=== PATIENT | female | born 1955 | race Caucasian/White ===

== ENCOUNTER → 2020-06-07 10:57 | Outpatient (CLI) | payer OTHER, SELFPAY ==
--- NOTE | ~2020-06-07 | MM_ITS ---
EXAMINATION: MM screening [facility] BI w remy HISTORY: Screening mammogram TECHNIQUE: Craniocaudal and mediolateral oblique 3-D tomosynthesis images were obtained and synthetic 2-D images were generated. CAD analysis was submitted and interpreted. COMPARISON: 04/13/2019, 04/01/2018, 02/27/2017 BREAST PARENCHYMAL COMPOSITION: The breasts are almost entirely fatty. FINDINGS: There is unchanged focal asymmetry in the posterior third of the upper outer quadrant of th e left breast. There is no evidence of suspicious mass, calcification, or architectural distortion to suggest malignancy in either breast. There has been no suspicious interval change. IMPRESSION: 1. No mammographic evidence of malignancy. 2. Recommend routine screening mammography in one year. BI-RADS Category 2: Benign finding(s). Reviewed, dictated and finalized at location A.
== END ==
PROVIDERS: PCP Family Medicine; Visit Provider Nurse Practitioner Obstetrics & Gynecology
DX: Z12.31 Encounter for screening mammogram for malignant neoplasm of breast (principal)
CPT/HCPCS: 77063; 77067

== ENCOUNTER 2020-10-26 08:25 | Outpatient (CLI) | payer OTHER, SELFPAY ==
--- NOTE | 2020-10-26 08:37 | ECHO_ITS ---
Patient Info Name: Tania Downing Age: 65 years : 1955 Gender: Female Ht: 66 in Wt: 265 lbs BSA: 2.43 m2 HR: 50 bpm BP: 107 / 76 mmHg Heart Rhythm: Bradycardia Technical Quality: Fair Exam Date: 10/26/2020 9:15 AM Exam Location: [facility] Pulmonary Patient Status: Outpatient Admit Date: 10/26/2020 Staff Ordering Physician: Jesús Law DO Factory Assembler: Socrates Browning RDCS Attending Provider: Jesús Law DO Referring Physician: Thanh ARANGO; Exam Type: CA echo doppler color flow Study Info Indications R06.00 - Dyspnea, unspecified Complete two-dimensional, color flow and Doppler transthoracic echocardiogram is performed. History/Risk Factors Dyspnea. Summary 1. Complete two-dimensional, color flow and Doppler transthoracic echocardiogram is performed. 2. Left ventricular chamber dimension is normal. 3. Left ventricular systolic function is normal, estimated at 55-60%. 4. There is mildly increased left ventricular wall thickness. 5. The left ventricular diastolic function is abnormal. 6. E/e' 13 is mildly elevated. 7. Left atrial chamber dimension is mildly enlarged. 8. There is mild to moderate mitral valve regurgitation. 9. There is trace tricuspid valve regurgitation. 10. Mild pulmonary hypertension, estimated pulmonary arterial systolic pressure is 41 mmHg. 11. There is small circumferential pericardial effusion. Left Ventricle E/e' 13 is mildly elevated. Left ventricular chamber dimension is normal. Left ventricular systolic function is normal, estimated at 55-60%. There is mildly increased left ventricular wall thickness. The left ventricular diastolic function is abnormal. Right Ventricle Right ventricular chamber dimension is normal. Right ventricular systolic function is normal. Left Atria Left atrial chamber dimension is mildly enlarged. Right Atria Right atrial chamber dimension is normal. Aortic Valve The aortic valve is trileaflet. There is no aortic valve stenosis. There is no aortic valve regurgitation. Pulmonic Valve There is no pulmonic regurgitation. Mitral Valve There is no mitral valve stenosis. There is mild to moderate mitral valve regurgitation. Tricuspid Valve There is trace tricuspid valve regurgitation. Mild pulmonary hypertension, estimated pulmonary arterial systolic pressure is 41 mmHg. Pericardium/Pleural There is small circumferential pericardial effusion. Inferior Vena Cava Normal inferior vena cava with >50% collapse upon inspiration consistent with normal right atrial pressure, 5 mmHg. Aorta The aortic root size at the sinus of Valsalva is normal. Left Ventricular Outflow Tract Name Value Normal LVOT 2D LVOT Diameter 2.0 cm LVOT Doppler LVOT Peak Gradient 7 mmHg LVOT Mean Gradient 4 mmHg LVOT VTI 33 cm LVOT VTI/AV VTI Ratio 0.9 LVOT Stroke Volume 101 ml LVOT CO 4.7 l/min LVOT CI 1.9
== END 2020-10-26 08:26 | disposition home or self-care (01) ==
PROVIDERS: PCP Family Medicine; Visit Provider Internal Medicine Cardiovascular Disease
DX: R06.00 Dyspnea, unspecified (principal); I34.0 Nonrheumatic mitral (valve) insufficiency; I36.1 Nonrheumatic tricuspid (valve) insufficiency
CPT/HCPCS: 93306

== ENCOUNTER → 2021-05-02 15:36 | Outpatient (CLI) | payer OTHER, SELFPAY ==
--- NOTE | ~2021-05-02 | XR_ITS ---
EXAMINATION: XR knee RT min 4V DATE: 05/02/2021 16:15 INDICATION: Right knee pain. TECHNIQUE: 4 views of right knee were obtained. COMPARISON: None. FINDINGS: Bone alignment is normal. No fracture. There is mild osteoarthritis of medial and lateral c ompartments and moderate osteoarthritis of patellofemoral compartment. There is a small knee joint ef fusion. IMPRESSION: 1. Moderate right knee osteoarthritis. 2. Small right knee joint effusion. Reviewed, dictated and finalized at location A.
== END ==
PROVIDERS: PCP Family Medicine; Visit Provider Family Medicine
DX: M17.11 Unilateral primary osteoarthritis, right knee (principal); M25.461 Effusion, right knee
CPT/HCPCS: 73564

== ENCOUNTER → 2021-06-15 17:36 | Outpatient (CLI) | payer OTHER, SELFPAY ==
--- NOTE | ~2021-06-15 | DEXA_ITS ---
Bone Density Report Name: Tania Downing Age: 65 Sex: Female Ethnicity: White Date of : 1955 Indication: postmenopausal; screening for osteoporosis; Referring Provider: Adis, Edwige Alonzo Study: Bone densitometry was performed. Exam Date: June 15, 2021 Accession number: [id number] Bone Density: Region BMD T-score Z-score Classification AP Spine (L1, L2, L4) 1.264 2.1 3.8 Normal Femoral Neck (Left) 0.913 0.6 2.1 Normal Total Hip (Left) 0.974 0.3 1.5 Normal Femoral Neck (Right) 0.807 -0.4 1.1 Normal Total Hip (Right) 0.955 0.1 1.3 Normal Total Hip Mean 0.965 0.2 1.4 Normal World Health Organization criteria for BMD impression classify patients as: Normal (T-score at or above -1.0), Osteopenia (T-score between -1.0 and -2.5), or Osteoporosis (T-score at or below -2.5). 10-year Fracture Risk: FRAX not reported because: All T-scores for Spine Total, Hip Total, Femoral Neck at or above -1.0 Previous Exams: Region Exam Age BMD T-score BMD Change BMD Change Date g/cm2 vs Baseline vs Previous AP Spine(L1, L2, L4) 06/15/2021 65 1.264 2.1 -0.077* 0.083* 03/17/2019 63 1.181 1.3 -0.160* 0.020 12/23/2012 57 1.162 1.2 -0.180* 0.021 11/10/2009 54 1.140 1.0 -0.201 -0.201 10/19/2006 51 1.341 2.8 Total Hip(Left) 06/15/2021 65 0.974 0.3 -0.062* 0.034* 03/17/2019 63 0.939 0.0 -0.097* -0.040* 12/23/2012 57 0.979 0.3 -0.057* 0.067 11/10/2009 54 0.912 -0.2 -0.124 -0.124 10/19/2006 51 1.036 0.8 Total Hip(Right) 06/15/2021 65 0.955 0.1 -0.083* -0.025 03/17/2019 63 0.981 0.3 -0.058* -0.021 12/23/2012 57 1.001 0.5 -0.037* 0.084 11/10/2009 54 0.918 -0.2 -0.121 -0.121 10/19/2006 51 1.038 0.8 *Denotes significance at 95% confidence level, LSC for AP Spine = 0.022 g/cm2, LSC for Total Hip = 0.027 g/cm2 Clinical Information Provided by Patient: Has used the following medications: Calcium, MTV Patient maximum height was 66.5 Menopause Age: 51 No regular weight bearing exercise Drinks caffeinated beverages Onset of menses at age 13 Number of children 2 Impression: The patient has normal bone mass. No significant bone loss was observed. Discussion: BONE DENS
--- NOTE | ~2021-06-15 | MM_ITS ---
EXAMINATION: MM screening [facility] BI w remy HISTORY: Screening TECHNIQUE: Craniocaudal and mediolateral oblique 3-D tomosynthesis images were obtained and synthetic 2-D images were generated. CAD analysis was submitted and interpreted. COMPARISON: Comparison to multiple prior studies sequentially, with oldest reviewed study dated 02/03. BREAST PARENCHYMAL COMPOSITION: There are scattered areas of fibroglandular density. FINDINGS: Bilateral breast asymmetries are stable. There is no evidence of suspicious mass, calcifica tion, or architectural distortion to suggest malignancy in either breast. There has been no suspiciou s interval change. IMPRESSION: 1. No mammographic evidence of malignancy. 2. Recommend routine screening mammography in one year. BI-RADS Category 2: Benign finding(s). Reviewed, dictated and finalized at location A.
== END ==
PROVIDERS: PCP Family Medicine; Visit Provider Nurse Practitioner Obstetrics & Gynecology
DX: Z12.31 Encounter for screening mammogram for malignant neoplasm of breast (principal); M85.80 Other specified disorders of bone density and structure, unspecified site; Z78.0 Asymptomatic menopausal state
CPT/HCPCS: 77063; 77067; 77080

== ENCOUNTER → 2021-06-27 12:53 | Outpatient (CLI) | payer OTHER, SELFPAY ==
--- NOTE | ~2021-06-27 | MR_ITS ---
EXAMINATION: MR knee RT wo con DATE: 06/27/2021 13:34 INDICATION: Right knee pain TECHNIQUE: Magnetic resonance imaging (MRI) of the right knee was performed without intravenous contr ast. Sequences included coronal PD-weighted FSE, coronal PD-weighted FS FSE, sagittal T2-weighted FS E, sagittal PD-weighted FS FSE and axial PD weighted fat saturated FSE. COMPARISON: None. FINDINGS: Medial compartment: Longitudinal horizontal tear extending to the inferior articular surface at the junction of the mid t o peripheral third of the body and posterior horn of the medial meniscus. There is suggestion of an a dditional small radial tear at the body. Partial thickness cartilage loss and chondral surface regula rity but without degenerative subchondral changes at the anterior to central weightbearing medial fem oral condyle. Along the lateral side of the anterior weightbearing medial femoral condyle is appears to involve greater than 50% the cartilage thickness. Cartilage along the medial tibial plateau appear s relatively preserved. Small marginal osteophytes are present. Lateral compartment: Longitudinal oblique vertical appearing tear at the anterior horn of the lateral meniscus although th is is a region of decreased specificity with MRI imaging. Deep chondral ulceration involving a signif icant portion of the anterior to posterior weightbearing medial femoral condyle. There is marrow evelyn a surrounding a small region of low signal intensity subarticular eburnation at the central weightbea ring lateral femoral condyle. Partial-thickness cartilage ulceration involving greater than 50% the c artilage thickness with subtle chondral surface irregularity across the lateral tibial plateau with s imilar subarticular eburnation and surrounding marrow edema. Small marginal osteophytes are present. Patellofemoral compartment: Extensive full and near full-thickness chondral ulceration involving the lateral patellar facet and l ateral trochlea with cortical irregularity and subarticular cystic changes throughout the lateral tro chlea and at the inferior third of the lateral facet. Additional less severe partial thickness cartil age loss without degenerative subchondral changes at the medial patellar facet. Cartilage thickness i s more preserved at the medial trochlea where there is small amount partial-thickness chondral fissur ing and no degenerative subchondral changes. Ligaments and tendons: Partial tear of the posterolateral bundle of the anterior cruciate ligament. The anteromedial bundle appears likely intact. The posterior cruciate ligament is normal. The medial collateral ligament and fibular collateral ligament complex are normal. Small enthesophytes on the anterior patella and at th e anterior tibial tuberosity insertion of the otherwise normal patellar tendon. Distal quadriceps ten don is normal. The visualized medial and lateral hamstring tendons as well as the iliotibial band are normal. Fluid: Moderate-sized right knee joint effusion with mild synovitis at the suprapatellar pouch. No loose ost eochondral bodies identified. Small Krishnamurthy's cyst with mild synovitis. Moderate-sized Krishnamurthy's cyst wit h smaller more superficial component and moderate sized deeper component extending caudally along the anterior medial head of the gastrocnemius. Osseous/other: There is approximately 5 mm lateral subluxation of the patella. Alignment is otherwise normal. No fra cture or pathologic marrow replacing process. IMPRESSION: 1. Medial and lateral meniscal tears. Should be noted however that specificity for tears of the anter ior horn of the lateral meniscus are lower with MRI. 2. Tricompartmental osteoarthritis, severe with extensive high-grade chondromalacia at the lateral pa tellofemoral compartment, moderate severity with additional extensive high-grade chondromalacia in th e lateral compartment and mild w
== END ==
PROVIDERS: PCP Family Medicine; Visit Provider Nurse Practitioner Family
DX: M25.561 Pain in right knee (principal); S83.281A Other tear of lateral meniscus, current injury, right knee, initial encounter; S83.241A Other tear of medial meniscus, current injury, right knee, initial encounter; M17.11 Unilateral primary osteoarthritis, right knee; M94.261 Chondromalacia, right knee; S83.511A Sprain of anterior cruciate ligament of right knee, initial encounter
CPT/HCPCS: 73721

== ENCOUNTER 2021-08-03 08:07 | Outpatient (CLI) | payer MEDICARE, SELFPAY ==
--- NOTE | ~2021-08-03 | NM_ITS ---
EXAMINATION: NM vidhi stress w perfusion DATE: 08/03/2021 11:33 INDICATION: Chest pain, unspecified. TECHNIQUE: Rest images were obtained following intravenous administration of 10 mCi Tc99m tetrofosmin (Myoview). The patient was infused intravenously with Lexiscan (regadenoson). Then, 31.4 mCi Tc99m t etrofosmin (Myoview) was administered intravenously, and stress images were obtained. Data was recons tructed into short axis and horizontal and vertical long axis SPECT images. Gated SPECT images were a lso obtained. COMPARISON: None. FINDINGS: There is no definite reversible or fixed perfusion abnormality to suggest ischemia or infar ction. There is no segmental wall motion abnormality. Left ventricular ejection fraction measures > 70%. IMPRESSION: 1. No definite ischemia or infarct. 2. Normal left ventricular ejection fraction measuring >70%. Reviewed, dictated and finalized at location A.
--- NOTE | 2021-08-03 08:23 | EST_ITS ---
Patient Info Name: Tania Downing Age: 65 years : 1955 Gender: Female Ht: 66 in Wt: 265 lbs BSA: 2.43 m2 HR: 55 bpm BP: 134 / 71 mmHg Heart Rhythm: Sinus Rhythm Exam Date: 08/03/2021 9:16 AM Exam Location: [facility] Stress Patient Status: Outpatient Admit Date: 08/03/2021 Staff Ordering Physician: Jesús Law DO Attending Provider: Jesús Law DO Exercise Technologist: Cecilia Cox CT Exercise Physician: Jesús Law DO Exam Type: CA stress vidhi w NM Study Info A regadenoson stress test was performed. Summary 1. 1. Negative lexiscan stress test for ischemic ST changes by ECG criteria. 2. 2. Stable hemodynamics throughout the test. 3. 3. Nuclear scan to follow and will be reported separately. Please correlate with it. 4. 4. Patient informed of the above results. Protocol: Lexiscan Stress ECG Details Stage: REST Duration (min): 1 min : 31 sec HR (bpm): 54 SBP (mmHg): 134 DBP (mmHg): 71 Stage: REST Duration (min): 9 min : 42 sec HR (bpm): 58 SBP (mmHg): 134 DBP (mmHg): 71 Stage: STAGE 1 Duration (min): 1 min : 0 sec HR (bpm): 76 SBP (mmHg): 163 DBP (mmHg): 63 Stage: RECOVERY Duration (min): 1 min : 0 sec HR (bpm): 67 SBP (mmHg): 163 DBP (mmHg): 63 Stage: RECOVERY Duration (min): 2 min : 0 sec HR (bpm): 59 SBP (mmHg): 163 DBP (mmHg): 63 Stage: RECOVERY Duration (min): 3 min : 0 sec HR (bpm): 56 SBP (mmHg): 147 DBP (mmHg): 67 Stage: RECOVERY Duration (min): 3 min : 15 sec HR (bpm): 58 SBP (mmHg): 147 DBP (mmHg): 67 Rest HR: 58 bpm Peak HR: 76 bpm Rest Sys BP: 134 mmHg Peak Sys BP: 163 mmHg Max Pred HR: 156 bpm % Max Pred HR: 49 % Target HR: 133 bpm Max RPP: 12,388 bpm*mmHg Termination Reason: Completed protocol Cardiac Symptoms: Shortness of breath Total Time: 1 min : 0 sec Rest Egan BP: 71 mmHg Peak Egan BP: 63 mmHg Total Dose: 0.4 mg Resting ECG Sinus bradycardia, IRBBB. Stress ECG No ST changes. Arrhythmias None. Report Signatures
== END 2021-08-03 08:08 | disposition home or self-care (01) ==
PROVIDERS: PCP Family Medicine; Visit Provider Internal Medicine Cardiovascular Disease
DX: R07.89 Other chest pain (principal)
CPT/HCPCS: 78452; 93017; A9502; J2785

== ENCOUNTER 2022-03-10 09:34 | Outpatient (CLI) | payer MEDICARE, SELFPAY ==
--- NOTE | 2022-03-10 09:55 | ECHO_ITS ---
Patient Info Name: Tania Downing Age: 66 years : 1955 Gender: Female Ht: 66 in Wt: 260 lbs BSA: 2.40 m2 HR: 52 bpm BP: 161 / 93 mmHg Technical Quality: Good Exam Date: 03/10/2022 10:12 AM Exam Location: [facility] Pulmonary Patient Status: Outpatient Admit Date: 03/10/2022 Staff Ordering Physician: Jesús Law DO Solution Architect: Bishnu Rodriguez RDCS, RT Attending Provider: Jesús Law DO Referring Physician: Thanh ARANGO; Exam Type: CA echo doppler color flow Study Info Indications R06.00 - Dyspnea, unspecified Complete two-dimensional, color flow and Doppler transthoracic echocardiogram is performed. Strain analysis performed. Summary 1. Complete two-dimensional, color flow and Doppler transthoracic echocardiogram is performed. 2. Left ventricular chamber dimension is normal. 3. Left ventricular systolic function is normal, estimated at 60-65%. 4. There is mildly increased left ventricular wall thickness. 5. The left ventricular diastolic function is abnormal. 6. E/e' 10 is mildly elevated. 7. Global longitudinal strain is normal at -22.1%. 8. Left atrial chamber dimension is mildly enlarged. 9. There is mild mitral valve regurgitation. 10. There is mild tricuspid valve regurgitation. 11. Mild pulmonary hypertension, estimated pulmonary arterial systolic pressure is 47 mmHg. Left Ventricle E/e' 10 is mildly elevated. Global longitudinal strain is normal at -22.1%. Left ventricular chamber dimension is normal. Left ventricular systolic function is normal, estimated at 60-65%. There is mildly increased left ventricular wall thickness. The left ventricular diastolic function is abnormal. Right Ventricle Right ventricular systolic function is normal and with normal TAPSE 2.7 cm. Right ventricular chamber dimension is normal. Left Atria Left atrial chamber dimension is mildly enlarged. Right Atria Right atrial chamber dimension is normal. Aortic Valve The aortic valve is trileaflet. There is no aortic valve stenosis. There is no aortic valve regurgitation. Pulmonic Valve There is no pulmonic regurgitation. Mitral Valve There is no mitral valve stenosis. There is mild mitral valve regurgitation. Tricuspid Valve There is mild tricuspid valve regurgitation. Mild pulmonary hypertension, estimated pulmonary arterial systolic pressure is 47 mmHg. Pericardium/Pleural There is no pericardial effusion. Inferior Vena Cava Dilated inferior vena cava with >50% collapse upon inspiration consistent with normal right atrial pressure, 5 mmHg. Aorta The aortic root size at the sinus of Valsalva is normal. Left Ventricular Outflow Tract Name Value Normal LVOT 2D LVOT Diameter 2.0 cm LVOT Doppler LVOT Peak Gradient 5 mmHg LVOT Mean Gradient 3 mmHg LVOT VTI 32 cm LVOT VTI/AV VTI Ratio 0.9 LVOT Stroke Volume 100 ml LVOT CO 5.6 l/min LVOT CI 2.3 l/min/m2
== END 2022-03-10 09:35 | disposition home or self-care (01) ==
PROVIDERS: PCP Internal Medicine; Visit Provider Internal Medicine Cardiovascular Disease
DX: R06.00 Dyspnea, unspecified (principal); I08.3 Combined rheumatic disorders of mitral, aortic and tricuspid valves
CPT/HCPCS: 93306

== ENCOUNTER 2022-09-07 07:39 | Outpatient (CLI) | payer MEDICARE, SELFPAY ==
--- NOTE | 2022-10-02 15:28 | WPDSLEEPSTUD ---
Sleep Study Date of Study: 09/07/22 Ordering Provider: Jesús Law DO Interpreting Physician: Daisy Avery DO Sleep Study Type: Polysomnogram Height: 1.68 m Weight: 111.13 kg Body Mass Index: 39.5 Neck Circumference (inches): 15 Chappell: 6 Reason for Sleep Study Daytime hypersomnia Sleep History The patient is a 67-year-old female with hypertension, GERD, anxiety, arthritis and Lupus that had a sleep study ordered by her crisis worker for evaluation of sleep apnea. The patient denies awakening from sleep short of breath. She denies awakening at night with heartburn, belching or cough. She rarely snores and is never loud enough that others complain. She occasionally has trouble sleeping when she has a cold. She denies waking up gasping for air throughout the night. She denies having breathing problems at night observed by herself or others. She rarely sweats excessively at night. She denies having heart palpitations or irregular heartbeats during the night. She occasionally falls asleep during the day. Two will occasionally fall asleep while driving after several hours of driving at night. She denies having trouble at school or work due to sleepiness. She denies feeling unable to move when waking up or falling asleep. She occasionally experiences vivid dreamlike scenes upon awakening or falling asleep. She denies feeling afraid of going to sleep. She rarely has nightmares. She occasionally remembers her dreams. She occasionally has thoughts racing through her mind. She rarely feels sad or depressed. She occasionally has anxiety. She rarely has muscular tension. She rarely notices parts of her body jerk. She denies kicking during the night. She occasionally has crawling and aching feelings in her legs as well as leg pain during the night. She denies grinding her teeth during sleep and awakening with morning jaw pain. She is occasionally bothered by pain during the day and occasionally awakened by pain during the night. She occasionally wakes up feeling stiff in the morning. She rarely wakes up with sore achy muscles. She rarely wakes up with pain in the neck, spine or other joints. She goes to bed between 10-11 p.m. on both weekdays and weekends. He takes her 5-10 minutes to fall asleep. She wakes up 2-3 times throughout the night to urinate, stretch and get a drink of water. She is able to fall back asleep within 10-15 minutes. She wakes up between 7-8 a.m. on both weekdays and weekends. She typically gets 7-9 hours of sleep per night. She will stay in bed for less than 10 minutes after waking up in the morning. She currently lives with her . She does not consume any caffeinated beverages within 2 hours of bedtime. She does not engage in physical exercise before bedtime. She will occasionally read and watch television before falling asleep. She will take naps in the afternoon or the evening and they are refreshing. She drinks 2 cups of coffee and 1-2 sodas per day. He will drink 1-2 alcoholic beverages a few times per week. She denies tobacco use. She will use a CBD/THC tablet as needed PMFSH Past Medical History Medical History Anxiety Arthritis BMI greater than 40 Flexion contracture History of 2019 novel coronavirus disease (COVID-19) Knee effusion, right Left knee DJD Lupus Right knee DJD Right knee pain Wears glasses Family History Family History Other Family history of cardiovascular disease Hypertension Social History Social History Smoking status: Never smoker Alcohol intake: current Medications Home Medications Medication Instructions Recorded Confirmed Type buspirone 10 mg tablet 10 mg PO BID 09/30/20 08/17/22 History fluticasone propionate 50 1 spray intranasal DAILY 09/30/20
[2022-10-02 15:36] VITALS: BMI 39.5
== END 2022-09-08 06:21 | disposition home or self-care (01) ==
PROVIDERS: PCP Internal Medicine; Visit Provider Internal Medicine Cardiovascular Disease
DX: G47.30 Sleep apnea, unspecified (principal); G47.10 Hypersomnia, unspecified
CPT/HCPCS: 95810

== ENCOUNTER 2022-10-14 08:12 | Outpatient (CLI) | payer MEDICARE, SELFPAY ==
--- NOTE | ~2022-10-14 | MM_ITS ---
EXAMINATION: MM screening [facility] BI w remy HISTORY: Screening mammogram TECHNIQUE: Craniocaudal and mediolateral oblique 3-D tomosynthesis images were obtained and synthetic 2-D images were generated. CAD analysis was submitted and interpreted. COMPARISON: 6 06/15/2021, 06/07/2020, 04/03/2019 bilateral screening mammogram examinations BREAST PARENCHYMAL COMPOSITION: There are scattered areas of fibroglandular density. FINDINGS: There is no evidence of suspicious mass, calcification, or architectural distortion to sugg est malignancy in either breast. There has been no suspicious interval change. IMPRESSION: 1. No mammographic evidence of malignancy. 2. Recommend routine screening mammography in one year. BI-RADS Category 1: Negative Reviewed, dictated and finalized at location A. INE STAKER
== END 2022-10-14 08:13 | disposition home or self-care (01) ==
LOC: ANHIMG 08:16
PROVIDERS: PCP Internal Medicine; Visit Provider Internal Medicine
DX: Z12.31 Encounter for screening mammogram for malignant neoplasm of breast (principal)
CPT/HCPCS: 77063; 77067

== ENCOUNTER 2022-11-24 10:56 | Outpatient (CLI) | payer MEDICARE, SELFPAY ==
--- NOTE | 2022-11-24 12:16 | ECG_ITS ---
Measurements Intervals [place] Rate: 52 P: 10 NH: 165 QRS: -3 QRSD: 87 T: 6 QT: 443 QTc: 416 Interpretive Statements BASELINE ARTIFACT/REDUCED ECG QUALITY SINUS BRADYCARDIA WITH SINUS ARRHYTHMIA LOW QRS VOLTAGE IN PRECORDIAL LEADS [QRS DEFLECTION < 1.0 mV IN CHEST LEADS] NONSPECIFIC T-WAVE CHANGE NO PREVIOUS ECG AVAILABLE FOR COMPARISON Electronically Signed On 11-24-2022 15:03:28 VOCATIONAL PSYCHOLOGIST by Aguila James M.D.
[2022-11-24 12:47] LABS: Add Urine Microscopic? YES; Appearance Urine Clear (Clear); Basophils Absolute Auto 0.1 K/mm3 (0.0-0.1); Basophils Percent Auto 1.2 % (0.2-1.2); Bilirubin Urine Negative (Negative); Blood Urine Negative (Negative); Color Urine Yellow (Yellow); Eosinophils Absolute Auto 0.2 K/mm3 (0-0.3); Eosinophils Percent Auto 2.2 % (0-4.4); Glucose Urine UA Negative (Negative); Hemoglobin 13.6 g/dL (12.0-15.0); Immature Granulocyte Absolute 0.02 K/mm3 (0.00-0.031); Immature Granulocyte Percent A 0.3 % (0-0.5); Ketones Urine Trace mg/dL (Negative); Leukocyte Esterase Ur Trace LEU/UL (Negative); Lymphocytes Absolute Auto 1.38 K/mm3 (0.9-3.2); Mean Corpuscular Hemoglobin 31.5 pg (26-34); Mean Corpuscular Volume 92.6 fl (80-100); Mean Platelet Volume 9.8 fl (7.4-10.4); Monocytes Absolute Auto 0.5 K/mm3 (0.1-0.6); Monocytes Percent Auto 7.4 % (2.6-8.5); Neutrophils Absolute Auto 4.8 K/mm3 (1.3-6.7); Neutrophils Percent Auto 68.9 % (45.5-73.1); Nitrate Urine Negative (Negative); Platelet Count Result 221 k/mm3 (150-375); Protein Urine Negative (Negative); Red Blood Count 4.32 M/mm3 (4.2-5.4); Red Cell Distribution Width 12.8 % (11.5-14.5); Specific Grav Ur 1.015 (1.001-1.035); White Blood Count 6.9 K/mm3 (4.5-10.0)
[2022-11-24 12:52] LABS: Albumin Level 4.6 g/dL (3.5-5.1); Anion Gap 7 mmol/L (8-16); Blood Urea Nitrogen 14 mg/dL (7-17); Carbon Dioxide 29 mmol/L (22-30); Chloride 100 mmol/L (98-107); Estimated Glomerular Filt Rate 45; Glucose 93 mg/dL (65-110); Potassium 3.9 mmol/L (3.4-5.0); Sodium 136 mmol/L (137-145)
[2022-11-24 12:55] LABS: Prothrombin Time 13.1 Seconds (11.1-14.7); Urine Cotinine NEGATIVE
[2022-11-24 12:56] LABS: Partial Thromboplastin Time 28.3 SECONDS (22.3-36.8)
[2022-11-24 13:06] LABS: Bacteria Urine 4+ /hpf; Hyaline Casts Urine 15-19 /lpf; Mucus Urine Rare /lpf; RBC Urine 0-2 /hpf (0-2); Squamous Epithelial Cell Urine Rare /hpf (Few); Transitional Epi Cells Urine Rare /hpf (None Seen); WBC Urine 0-3 /hpf
[2022-11-24 13:19] LABS: Hemoglobin A1C 4.7 % (<5.7)
== END 2022-11-24 10:57 | disposition home or self-care (01) ==
PROVIDERS: PCP Internal Medicine; Visit Provider Orthopaedic Surgery
DX: M17.11 Unilateral primary osteoarthritis, right knee (principal); Z01.818 Encounter for other preprocedural examination
CPT/HCPCS: 80048; 80307; 81001; 82040; 83036; 85025; 85610; 85730; 86850; 86900; 86901; 87081; 93005

== ENCOUNTER 2022-12-06 01:12 | Day surgery (SDC) | payer MEDICARE, SELFPAY ==
--- NOTE | 2022-11-24 11:19 | PC.NURSE ---
Addendum entered by Luzma Irene RN 11/24/22 12:01: DR. ERICKSON NOT DR. JOHNSON Original Note: PRE-OP INSTRUCTIONS, PLEASE READ CAREFULLY Report to the Outpatient Waiting Room, entrance under the green pavilion located off [facility], at time _0830_ on date _12/06/22_. Planned Procedure Time: _1030_. PACK A SMALL OVERNIGHT BAG AND LEAVE IN THE CAR ALONG WITH YOUR WALKER Time changes happen often and if your time is changed the preop area will call you the afternoon before. - You and your visitor will be asked to self-screen and do not enter if you have any COVID symptoms. - Only one visitor is requested with a max of two and NO children visitors are allowed at this time. - The patient visitor may be requested to leave or wait in car when not with patient due to distancing restrictions. - A mask is REQUIRED within the hospital. -VISITING HOURS 8AM-8PM Patients may have clear liquids (water, carbonated beverages, clear teas, apple juice) until 3 hours prior to surgery (0730 AM) with a maximum of 20 ounces. - No food from midnight until time of surgery Take the following medications with a SIP of water the morning of surgery: _ BUPROPION, BUSPIRONE, TRAMADOL IF NEEDED_ Medications to discontinue per DR. JOHNSON - _MELOXICAM 7 DAYS PRIOR TO SURGERY, Date to take last dose 11/28/22_ Medications to discontinue per ANESTHESIA -_ALL VITAMINS/SUPPLEMENTS 3 DAYS PRIOR TO SURGERY, Date to take last dose 12/02/22 Please no make-up, nail czech, hairspray, perfume, deodorant, or body powder the day of surgery. No jewelry (including any body piercings) or valuables the day of surgery, leave them at home. Please take a shower or bath the night before, or the morning of, surgery with an antibacterial soap. Wear comfortable, loose fitting clothing. - Jewelry must be removed prior to entering the operating room. Rings and piercings that are not removed may be cut off. - The hospital will not accept responsibility for valuables. - Please leave all valuables, including medications, at home the day of surgery. If you are going home after surgery, a licensed double bottom driver must drive you home. - NO public transportation without another adult if you receive anesthesia. - We recommend that an adult stay with you for 24 hours following discharge. - We also recommend that you do not drive, make important decision, drink alcoholic beverages, or take any drugs that were not prescribed by your health care provider for at least 24 hours after your discharge time. Follow any additional instructions given to you from your surgeon. If you or anyone in your household have experienced Covid symptoms in the past week, please notify your surgeon or the nurse liaison at the phone number below for possible testing. Instructions given to _PATIENT_and asked if any additional questions and then verbalized understanding. Patient advised to call surgeon office or pre surgery nurse liaison [phone] if any additional questions.
[2022-11-24 11:47] VITALS: BP 150/66; PULSE 52; RESP 18; TEMP 37.2; O2SAT 100; BMI 38.9
--- NOTE | 2022-12-05 09:18 | WPDANESEPPF ---
Anes - Initial Pre Proc Eval Procedure: Operation Date: 12/06/22 10:30 Proposed Procedures p Right Total Knee Arthroplasty with Left Knee Cortisone Injection - Ananth Blue MD Date/Time: 12/05/22 09:18 Surgeon: Ananth Blue MD Pre Op Diagnosis: Rt Knee DJD, Lt Knee DJD Patient Data Age: 67 Gender: F Height: 1.66 m Weight: 107.7 kg Last Vital Signs Temp 37.2 C 11/24/22 11:47 Pulse 52 L 11/24/22 11:47 Resp 18 11/24/22 11:47 BP 150/66 H 11/24/22 11:47 Pulse Ox 100 11/24/22 11:47 O2 Del Method Room Air 11/24/22 11:47 Allergies Allergy/AdvReac Type Severity Reaction Status Date / Time morphine AdvReac Hallucinati Verified 11/24/22 11:33 ng Home Medications Medication Instructions Recorded Confirmed Type buspirone 10 mg tablet 10 mg PO BID 09/30/20 12/06/22 History fluticasone propionate 50 1 spray intranasal DAILY PRN 09/30/20 12/06/22 History mcg/actuation nasal Congestion spray,suspension hydroxychloroquine 200 mg tablet 200 mg PO .Every other day 09/30/20 12/06/22 History losartan 100 1 tablet PO DAILY 09/30/20 12/06/22 History mg-hydrochlorothiazide 25 mg tablet metoprolol succinate 100 mg 100 mg PO DAILY 09/30/20 12/06/22 History tablet,extended release 24 hr montelukast 10 mg tablet 10 mg PO HS 09/30/20 12/06/22 History omeprazole 40 mg capsule,delayed 40 mg PO .every other day 11/05/20 12/06/22 History release acidophilus 100 million See Rx Instructions PO .COMPLEX 02/03/21 12/06/22 History cell-pectin, citrus 10 mg capsule cetirizine 10 mg disintegrating 10 mg PO DAILY 02/03/21 12/06/22 History tablet glucosamine sulf dipotassium Cl 1 tablet PO DAILY 02/03/21 12/06/22 History 750 mg-chondroitin sulf 600 mg tablet (Glucosamine-Chondroitin 3X Triple Strength) calcium carbonate-vitamin D3 1 tab-cap PO DAILY 05/23/21 12/06/22 History [Calcium 600 + D(3)] multivitamin 1 tablet PO DAILY 05/23/21 12/06/22 History azelastine 137 mcg (0.1 %) nasal 2 spray intranasal .PRN PRN 02/13/22 12/06/22 History spray aerosol Congestion amlodipine 10 mg tablet 5 mg PO DAILY 02/15/22 12/06/22 History bupropion HCl 150 mg 24 hr tablet, 150 mg PO QAM 02/15/22 12/06/22 History extended release tramadol 50 mg tablet 50 mg PO Q8H PRN pain #20 tabs 08/28/22 12/06/22 Rx Avexia 10 mg HS 11/24/22 12/06/22 History meloxicam 15 mg tablet See Rx Instructions .Route 11/24/22 12/06/22 History .COMPLEX PRN Pain chlorhexidine gluconate 4 % 1 applic topical ONCE #237 mL 11/28/22 Rx topical liquid (Hibiclens) sulfamethoxazole 800 1 tablet PO Q12H UTI 10 days #20 11/28/22 Rx mg-trimethoprim 160 mg tablet tabs (Bactrim DS) Patient hx anesthesia problems: post op nausea/vomiting Family hx anesthesia problems: none Results Review: All pre-operative results and documents have been reviewed as part of the pre-operative evaluation. [facility] Past Medical History Medical History (Updated 12/05/22 @ 09:19 by Armando Ambrose, ) Anxiety Arthritis BMI greater than 40 Flexion contracture GERD (gastroesophageal reflux disease) History of 2019 novel coronavirus disease (COVID-19) Hypertension Knee effusion, right Left knee DJD Lupus PONV (postoperative nausea and vomiting) Right knee DJD Right knee pain Wears glasses Family History Family History Other Family history of cardiovascular disease Hypertension Social History Social History Smoking status: Never smoker Second hand tobacco smoke exposure: No Additional smoking assessment comments: PT DENIES ALL FORMS OF TOBACCO USE Alcohol intake: current Drinks per week: 4 Substance use: current Substance use type: marijuana Other substance usage details: 2.5MG NIGHTLY FOR SLEEP Living arrangements: with family Spiritual care concerns: No
[2022-12-06] VITALS (15 sets, daily range): BP systolic 123–147; BP diastolic 53–99; PULSE 52–65; RESP 12–20; TEMP 36.3–37.1; O2SAT 95–100
--- NOTE | ~2022-12-06 | XR_ITS ---
EXAM: XR knee RT 2V DATE: 12/06/2022 13:37 HISTORY: RT TOTAL KNEE . COMPARISON: 05/23/2021. FINDINGS: Interval total knee arthroplasty, hardware components in good position. No hardware fractu re or abnormal perihilar hardware lucency. Subcutaneous and joint space gas and fluid. Midline skin s taples. No unexpected radiopaque foreign body. IMPRESSION: Expected postsurgical changes, with no radiographic evidence of procedure or hardware rel ated complication. Reviewed, dictated and finalized at location K. CE AGENT IMPRESSION: Expected postsurgical changes, with no radiographic evidence of pro cedure or hardware related complication.
--- NOTE | 2022-12-06 07:10 | WPDHPUPDATE1 ---
History and Physical Update Update Date/Time: 12/06/22 07:10 History and Physical has been reviewed, including an updated exam of the patient. There are NO changes in the patient's condition. Risks, benefits, and alternatives have been discussed and questions answered. Patient agrees to proceed with procedure.
[2022-12-06] MEDS: ACETAMINOPHEN 500 MG TABLET 1000 MG PO (09:15)
[2022-12-06] MEDS: LACTATED RINGERS 1,000 ML 30 ML IV CONT ×2 (09:22→13:25)
--- NOTE | 2022-12-06 10:01 | WPDANESPNB ---
Anes - Peripheral Nerve Block Date/Time: 12/06/22 10:01 I have discussed with the patient/family/POA the placement of a peripheral nerve block for post-operative pain management, including associated risks, benefits, complications, and side effects. Alternative methods of post-operative analgesia were detailed. Questions were solicited and answers provided to the satisfaction of the patient/family/POA. Time-Out: A pre-procedural Time-Out was completed immediately before starting the procedure and confirmed: Patient Identification, Site, Procedure, Patient Position and the Availability of Requisite Equipment. Clinical Indications: Acute post-operative pain management requested by the operative surgeon. Nerve Block Insertion Note Anes-nerve block: adductor canal Patient position: supine Skin prep: chlorhexidine Needle: 22 gauge, stimulating, insulated echogenic needle. Needle length: 80 mm Technique: ultrasound Injectate: bupivacaine 0.5% with epi 5 mcg/ml (30cc - no epi) Observations: tolerated well Complications: none Procedure start time:: 1030 Procedure end time:: 1032
[2022-12-06] MEDS: TRANEXAMIC ACID 1,000MG/ISO100 1,000 MG/100 ML BAG 200 MG IVPB (10:13)
[2022-12-06] MEDS: SCOPOLAMINE 1.5 MG PATCH TRANSDERM (10:22)
[2022-12-06] MEDS: ceFAZolin 2 GM/D5W 50 ML 2 GM/50 ML BAG IVPB ×2 (10:41→17:57)
[2022-12-06] MEDS: GENTAMICIN BONE CEMENT REFOBACIN 1 EACH TOPICAL (11:46)
[2022-12-06] MEDS: TRANEXAMIC ACID 1,000 MG/10 ML AMPUL 1000 MG IV PUSH (12:18)
--- NOTE | 2022-12-06 13:36 | W.PM.PROC2 ---
Procedure Note - Detailed Date of Procedure 12/06/22 Pre-op Diagnosis Rt Knee DJD, Lt Knee DJD Post-op Diagnosis Same Procedure Performed R TKA Surgeon Ananth Blue MD Anesthesia General Description of Procedure THE RIGHT KNEE WAS PREPPED AND DRAPED IN THE STERILE FASHION. THERE WAS A SEVERE VALGUS DEFORMITY TO THE KNEE. A MIDLINE SKIN INCISION WAS MADE. A MEDIAL PARAPATELLAR ARTHROTOMY WAS MADE. THE PATELLA WAS EVERTED. THERE WAS TRICOMPARTMENT DJD. AN INTRAMEDULLARY [place] WAS PLACED IN THE FEMUR. A DISTAL FEMORAL CUT WAS MADE IN 5 DEGREES OF VALGUS REMOVING APPROXIMATELY 9 MM OF BONE FROM THEN HIGH SIDE OF THE DISTAL FEMUR. THE FEMUR WAS SIZED TO 60. A 60 FEMORAL CUTTING BLOCK WAS PLACED IN ALIGNMENT WITH NEREIDA'S LINE AND THE TRANSEPICONDYLAR AXIS. ANTERIOR POSTERIOR AND CHAMFER CUTS WERE MADE. THE CUTS WERE EXCELLENT. NEXT AN INTRAMEDULLARY CUTTING GUIDE WAS PLACED IN THE TIBIA. A TRANS TIBIAL CUT WAS MADE ALONG THE LONG AXIS OF THE TIBIA. APPROXIMATELY 10 MM OF BONE WAS REMOVED FROM THE HIGH SIDE OF THE TIBIA. THE TIBIA WAS THEN PLANED TO A SMOOTH SURFACE. POSTERIOR FEMORAL OSTEOPHYTES WERE REMOVED FROM THE FEMORAL CONDYLES. A 67 TIBIAL TRIAL WAS PLACED IN ALIGNMENT WITH THE 1/3 MEDIAL ASPECT OF THE TIBIAL TUBERCLE. THEN A 60 FEMORAL TRIAL COMPONENT WAS PLACED. BOTH HAD EXCELLENT FITS. POLY TRIALS WERE PLACED IN INCREMENTS OF 2 MM. EVENTUALLY A 20 MM POLYETHYLENE TRIAL COMPONENT WAS PLACED. LIGAMENT BALANCING WAS PREFORMED UNTIL THE KNEE WAS STABLE IN VARUS/VALGUS STRESS. THE KNEE WAS TAKEN THROUGH A RANGE OF MOTION. THE KNEE CAME OUT TO FULL EXTENSION. THERE WAS NO ABNORMAL TILT TO THE PATELLA. THERE WAS GOOD A/P AND VARUS/VALGUS STABILITY. THERE WAS NO EXCESSIVE ROLL BACK WITH FLEXION. THE TRIAL COMPONENTS WERE REMOVED. THEN A 60 FEMORAL COMPONENT AND 67 TIBIAL COMPONENT WITH A 20 POLYETHYLENE COMPONENT WERE CEMENTED INTO PLACE. ONCE THE CEMENT WAS HARD THE KNEE WAS TAKEN THROUGH A ROM AGAIN AND FOUND TO BE STABLE WITH NO PATELLA TILT NO EXCESSIVE ROLL BACK WITH FLEXION AND GOOD STABILITY WITH COMPLETE AND FULL EXTENSION. THE KNEE WAS IRRIGATED WITH STERILE BETADINE AND WATER FOR ABOUT 3 MINUTES. THE BLEEDERS WERE CAUTERIZED. THE ARTHROTOMY WAS REPAIRED WITH NUMBER 1 VICRYL. THE SUB CUTANEOUS LAYER WITH 2-0 VICRYL AND THE SKIN WITH RAHAT. THE WOUND WAS WASHED AND A STERILE DRESSING WAS APPLIED. PATIENT WAS EXTUBATED. Estimated Blood Loss -100.0 Pathology None sent Complications No immediate complications Condition Stable Disposition PACU
[2022-12-06] MEDS: fentaNYL CITRATE INJ (*CRX) 100 MCG/2 ML VIAL 25 MCG IV PUSH ×4 (14:06→14:32)
--- NOTE | 2022-12-06 15:10 | ADMGEN ---
This patient, Tania Downing, was admitted to room 16 Patient/family oriented to hospital policies and general routines including ID bracelet, bed and alarms, visiting hours, pain management, procedures, bathroom and other care routines, personal items, smoking policy, room service/diet, and visiting hours. Information on how to activate the Rapid Response Team has been discussed. Patient/Family are encouraged to report perceived risks to care and to ask questions if they do not understand what they are told or what they should do.
[2022-12-06] MEDS: oxyCODONE/ACETAMINOPHEN (*CRX) 5-325 MG TABLET 1 TABLET PO ×2 (15:42→21:40)
[2022-12-06] MEDS: SENNA/DOCUSATE SODIUM TABLET 2 TAB PO (17:57)
[2022-12-06] MEDS: busPIRone HCL 10 MG TABLET PO (17:57)
[2022-12-06] MEDS: KETOROLAC 15 MG/ML VIAL (*BKC) IV PUSH (18:00)
[2022-12-06 18:59] LABS: Estimated CRCL calculation 43 ml/min; Estimated Glomerular Filt Rate 38
[2022-12-06] MEDS: MONTELUKAST SODIUM 10 MG TABLET PO (21:38)
[2022-12-06] MEDS: ASPIRIN 325 MG ENTERIC TABLET PO (21:38)
[2022-12-07] MEDS: oxyCODONE/ACETAMINOPHEN (*CRX) 5-325 MG TABLET 1 TABLET PO ×3 (02:10→10:30)
[2022-12-07] MEDS: ceFAZolin 2 GM/D5W 50 ML 2 GM/50 ML BAG IVPB ×2 (02:10→09:55)
[2022-12-07 03:45] VITALS: BP 142/52; PULSE 56; RESP 18; TEMP 36.9; O2SAT 96
[2022-12-07 05:28] LABS: Basophils Percent Auto 0.1 % (0.2-1.2); Hematocrit 34.1 % (37.0-47.0); Hemoglobin 11.7 g/dL (12.0-15.0); Immature Granulocyte Absolute 0.11 K/mm3 (0.00-0.031); Immature Granulocyte Percent A 0.7 % (0-0.5); Lymphocytes Absolute Auto 0.65 K/mm3 (0.9-3.2); Lymphocytes Percent Auto 4.3 % (18.3-44.2); Mean Corpuscular HGB Conc 34.3 g/dl (32-36); Mean Corpuscular Hemoglobin 31.5 pg (26-34); Mean Corpuscular Volume 91.9 fl (80-100); Mean Platelet Volume 9.6 fl (7.4-10.4); Monocytes Absolute Auto 0.8 K/mm3 (0.1-0.6); Monocytes Percent Auto 5.5 % (2.6-8.5); Neutrophils Absolute Auto 13.6 K/mm3 (1.3-6.7); Neutrophils Percent Auto 89.4 % (45.5-73.1); Platelet Count Result 205 k/mm3 (150-375); Red Blood Count 3.71 M/mm3 (4.2-5.4); Red Cell Distribution Width 12.3 % (11.5-14.5); White Blood Count 15.2 K/mm3 (4.5-10.0)
[2022-12-07] MEDS: KETOROLAC 15 MG/ML VIAL (*BKC) IV PUSH ×2 (05:43)
[2022-12-07 05:44] LABS: Anion Gap 5 mmol/L (8-16); Blood Urea Nitrogen 23 mg/dL (7-17); Carbon Dioxide 23 mmol/L (22-30); Chloride 101 mmol/L (98-107); Estimated CRCL calculation 38 ml/min; Estimated Glomerular Filt Rate 32; Glucose 130 mg/dL (65-110); Potassium 4.8 mmol/L (3.4-5.0); Sodium 129 mmol/L (137-145)
[2022-12-07] MEDS: polyethylene glycoL 3350 17 GM POWD.PACK PO (08:30)
[2022-12-07 08:34] VITALS: PULSE 60
[2022-12-07] MEDS: METOPROLOL SUCCINATE EXT REL 100 MG TABCR PO (08:34)
[2022-12-07] MEDS: SENNA/DOCUSATE SODIUM TABLET 2 TAB PO (08:34)
[2022-12-07] MEDS: hydroCHLOROthiazide 25 MG TABLET PO (08:34)
[2022-12-07] MEDS: buPROPion HCL XL (24 HR) 150 MG TABCR PO (08:34)
[2022-12-07] MEDS: LOSARTAN POTASSIUM 100 MG TABLET PO (08:34)
[2022-12-07] MEDS: PANTOPRAZOLE 40 MG TABLET PO (08:34)
[2022-12-07] MEDS: ASPIRIN 325 MG ENTERIC TABLET PO (08:34)
[2022-12-07] MEDS: LORATADINE 10 MG TABLET PO (08:34)
[2022-12-07] MEDS: busPIRone HCL 10 MG TABLET PO (08:35)
[2022-12-07] MEDS: MULTIVITAMINS THERAPEUTIC TAB (*BKC) 1 TABLET PO (08:35)
[2022-12-07] MEDS: amLODIPine BESYLATE 5 MG TABLET PO (08:35)
--- NOTE | 2022-12-07 09:15 | PM.PNORT ---
Progress Note: A&P Assessment and Plan (1) S/P total knee arthroplasty: Code(s): Z96.659 - Presence of unspecified artificial knee joint Status: Acute Assessment and Plan: POD #1 : Left TKA Continue PT/OT. WBAT. Walker. HIGH FALL RISK. Continue pain control. Ice Knee. Protect skin. DVT prophylaxis with Aspirin. SCDs. Incentive Spirometry Use reviewed. Monitor Dressing. Change prior to discharge. Bowel Regimen. Dispo: Home with Home Health pending progress with PT/OT likely today Subjective Subjective Date/Time Seen: 12/07/22 09:15 Post Op day: 1 Principal diagnosis: POD #1: Left TKA Interval history: POD #1: Left TKA Patient doing well. No complaints of pain. Working well with PT/OT. Hopeful for discharge home today. Review of Systems Review of Systems: All systems reviewed & are unremarkable except as noted in HPI and below Constitutional: Constitutional: Denies fever(s) and Denies headache(s) ENT: Denies headache(s) Cardiovascular: Cardiovascular: Denies chest pain, Denies diaphoresis, Denies palpitations and Denies dyspnea Respiratory: Respiratory: Denies dyspnea Gastrointestinal: Gastrointestinal: Denies abdominal pain, Denies constipation, Denies nausea and Denies vomiting Genitourinary: Genitourinary: Reports nocturia and Denies dysuria Musculoskeletal: Musculoskeletal: Reports arthralgias (Left Knee ), Reports joint swelling (Left Knee ) and Reports limited range of motion (ROM limited due to recent surgical intervention LEFT Knee ) Neurologic: Denies headache(s) Endocrine: Endocrine: Denies palpitations Exam Const: General: comfortable and no acute distress Resp: Effort & Inspection: normal respiratory effort Cardio: Rate: regular rate Rhythm: regular rhythm GI: GI Palp: Yes Soft to palpation, No Tenderness to palpation present (GI) and No Guarding due to palpation present (GI) Skin: General skin exam: wounds noted (see extremity assessment ) Wounds: wounds noted (see extremity assessment ) Neuro: Cognition (Neuro): normal cognition Other: NV intact aside from block. Moves toes. Sensation intact to light touch. +ankle dorsiflexion/plantarflexion. Extrem: Left lower extremity: normal to inspection, normal capillary refill, knee Details: tenderness (diffuse ) Location: of the patella, swelling (moderate consistent to recent surgery ), abnormal ROM (limited due to recent surgery ) Details: pain with active ROM and pain with passive ROM and ecchymosis (as expected with recent surgery. NO hematoma. ), lower leg (Negative Bhupendar's Sign ), ankle (+ankle dorsiflexion/plantarflexion ) Details: normal to inspection, no edema and normal ROM; no tenderness and no swelling and foot Details: normal capillary refill, toes with normal ROM, vascular exam Details: dorsalis pedis pulse present and motor-sensory exam light-touch normal; no tenderness Other: Incision left TKA dressing c/d/i. No hematoma. No signs of infection. No wound dehiscence. Psych: Mental Status: mental status grossly normal Objective Data Vital Signs Vital Signs: Vital Signs - 24 hr 12/06/22 09:33 12/06/22 13:25 12/06/22 13:40 Temperature 36.3 C L 37.1 C Pulse Rate 52 L 55 L 55 L Respiratory Rate 16 14 16 Blood Pressure 144/56 H 134/68 128/62 Pulse Oximetry 99 100 100 Oxygen Delivery Room Air Simple Face Mask Simple Face Mask Oxygen Flow Rate 8 8 12/06/22 13:55 12/06/22 14:10 12/06/22 14:25 Temperature Pulse Rate 54 L 59 L 52 L Respiratory Rate 16 16 12 Blood Pressure 128/62 134/99 H 136/66 Pulse Oximetry 100 95 98 Oxygen Delivery Simple Face Mask Room Air Nasal Cannula Oxygen Flow Rate 8 2 12/06/22 14:35 12/06/22 14:45 12/06/22 15:15 Temperature Pulse Rate 57 L 57 L 61 Respiratory Rate 12 20 18 Blood Pressure 137/69 142/59 H 126/83 Pulse Oximetry 96 100 100 Oxygen Delivery Nasal Cannula Oxygen Flow Rate 2 12/06/22 15:00 12/06/22 15:30 12/06/22 16:00 Tempera
--- NOTE | 2022-12-07 09:15 | PM.DS ---
DS: Admitting Diagnosis Discharge Date 12/07/22 Admitting Diagnosis Left TKA DS: Discharge Diagnosis Discharge Diagnosis (1) S/P total knee arthroplasty: Code(s): Z96.659 - Presence of unspecified artificial knee joint Status: Acute Assessment and Plan: POD #1 : Left TKA Continue PT/OT. WBAT. Walker. HIGH FALL RISK. Continue pain control. Ice Knee. Protect skin. DVT prophylaxis with Aspirin. SCDs. Incentive Spirometry Use reviewed. Monitor Dressing. Change prior to discharge. Bowel Regimen. Dispo: Home with Home Health pending progress with PT/OT likely today DS: Summary Hospital Course Reason for hospitalization: Left TKA Hospital Course: 67 year old female admitted s/p left TKA for postoperative medical management, pain control and mobilization with PT/OT. Patient progressed well with PT/OT. Pain and vitals stable throughout. They have been cleared to be discharged home with home health at this time. Follow up planned for 3 weeks in the outpatient orthopedic clinic with Dr. Blue. Status at Discharge Functional status at discharge: uses cane/walker Overall status at discharge: patient is progressing back to baseline Time Spent with Patient Time attestation: Total time spent providing and/or coordinating discharge services: Exam Const: General: comfortable and no acute distress Resp: Effort & Inspection: normal respiratory effort Cardio: Rate: regular rate Rhythm: regular rhythm Skin: General skin exam: wounds noted (see extremity assessment ) Wounds: wounds noted (see extremity assessment ) Neuro: Cognition (Neuro): normal cognition Other: NV intact aside from block. Moves toes. Sensation intact to light touch. +ankle dorsiflexion/plantarflexion. Extrem: Left lower extremity: normal to inspection, normal capillary refill, knee Details: tenderness (diffuse ) Location: of the patella, swelling (moderate consistent to recent surgery ), abnormal ROM (limited due to recent surgery ) Details: pain with active ROM and pain with passive ROM and ecchymosis (as expected with recent surgery. NO hematoma. ), lower leg (Negative Bhupendra's Sign ), ankle (+ankle dorsiflexion/plantarflexion ) Details: normal to inspection, no edema and normal ROM; no tenderness and no swelling and foot Details: normal capillary refill, toes with normal ROM, vascular exam Details: dorsalis pedis pulse present and motor-sensory exam light-touch normal; no tenderness Other: Incision left TKA dressing c/d/i. No hematoma. No signs of infection. No wound dehiscence. Psych: Mental Status: mental status grossly normal DS: Data Data Completed and Pending Labs on day of discharge: Labs from last 24 hours 12/07/22 12/07/22 12/06/22 05:16 05:16 17:05 WBC 15.2 H RBC 3.71 L Hgb 11.7 L Hct 34.1 L MCV 91.9 MCH 31.5 MCHC 34.3 RDW 12.3 Plt Count 205 MPV 9.6 Immature Gran % (Auto) 0.7 H Neut % (Auto) 89.4 H Lymph % (Auto) 4.3 L [place] % (Auto) 5.5 Eos % (Auto) 0.0 Baso % (Auto) 0.1 L Lymph # (Auto) 0.65 L [place] # (Auto) 0.8 H Eos # (Auto) 0.0 Baso # (Auto) 0.0 Abs Immat Gran (auto) 0.11 H Absolute Neuts (auto) 13.6 H Absolute Nucleated RBC 0.0 Nucleated RBC % 0.0 Sodium 129 L Potassium 4.8 Chloride 101 Carbon Dioxide 23 Anion Gap 5 L BUN 23 H Creatinine 1.60 H 1.40 H Estim Creat Clear Calc 38 43 Estimated GFR 32 L 38 L Glucose 130 H Calcium 8.0 L Discharge Plan Discharge Patient Disposition: Home Health Service Discharge Instructions: Remove the Scopolamine patch that was placed behind your left ear in 72 hours or less. Wash your hands after touching. Post Op Total Knee Replacement Instructions Dr. Ananth Blue [phone] Your dressing will be changed prior to your discharge. You will be sent home with one additional dressing to be changed on post op day 7 by the home health RN. Your
== END 2022-12-07 11:53 | disposition home health service (06) ==
LOC: ANHSURGERY 10:22 → ANHSUROVER 14:42
PROVIDERS: PCP Internal Medicine; Visit Provider Orthopaedic Surgery
PROC: (CPT 27447; principal; 2022-12-06 10:30)
DX: M17.11 Unilateral primary osteoarthritis, right knee (principal); G89.18 Other acute postprocedural pain; I10 Essential (primary) hypertension; K21.9 Gastro-esophageal reflux disease without esophagitis; F41.9 Anxiety disorder, unspecified; E66.9 Obesity, unspecified; Z68.38 Body mass index [BMI] 38.0-38.9, adult; F12.90 Cannabis use, unspecified, uncomplicated
CPT/HCPCS: 27447; 64447; 36415; 73560; 80048; 82565; 85025; 97110; 97161; 97165; 97535; A9270; C1713; C1776; J0171; J0690; J1040; J1100; J1170; J1885; J2250; J2270; J2405; J2704; J2795; J3010; J3370; J7120

== ENCOUNTER 2023-03-27 09:51 | Outpatient (CLI) | payer MEDICARE, SELFPAY ==
[2023-03-27 11:18] LABS: Basophils Absolute Auto 0.1 K/mm3 (0.0-0.1); Eosinophils Absolute Auto 0.1 K/mm3 (0-0.3); Hematocrit 40.8 % (37.0-47.0); Hemoglobin 13.9 g/dL (12.0-15.0); Immature Granulocyte Absolute 0.03 K/mm3 (0.00-0.031); Immature Granulocyte Percent A 0.4 % (0-0.5); Mean Corpuscular HGB Conc 34.1 g/dl (32-36); Mean Corpuscular Hemoglobin 30.9 pg (26-34); Mean Corpuscular Volume 90.7 fl (80-100); Mean Platelet Volume 9.5 fl (7.4-10.4); Monocytes Absolute Auto 0.5 K/mm3 (0.1-0.6); Monocytes Percent Auto 7.2 % (2.6-8.5); Neutrophils Absolute Auto 4.8 K/mm3 (1.3-6.7); Neutrophils Percent Auto 70.4 % (45.5-73.1); Platelet Count Result 246 k/mm3 (150-375); Red Cell Distribution Width 12.9 % (11.5-14.5); White Blood Count 6.8 K/mm3 (4.5-10.0)
[2023-03-27 11:25] LABS: Appearance Urine Clear (Clear); Bacteria Urine None Seen /hpf; Bilirubin Urine Negative (Negative); Blood Urine Negative (Negative); Color Urine Yellow (Yellow); Glucose Urine UA Negative (Negative); Ketones Urine Negative (Negative); Leukocyte Esterase Ur Trace LEU/UL (Negative); Nitrate Urine Negative (Negative); Non Pathogenic Casts 0-2; Protein Urine Negative (Negative); RBC Urine 0-2 /hpf (0-2); Specific Grav Ur 1.013 (1.001-1.035); Squamous Epithelial Cell Urine None seen /hpf (Few); WBC Urine 0-5 /hpf
[2023-03-27 11:26] LABS: Albumin Level 4.6 g/dL (3.5-5.1); Anion Gap 5 mmol/L (8-16); Blood Urea Nitrogen 14 mg/dL (7-17); Calcium 9.5 mg/dL (8.4-10.2); Carbon Dioxide 34 mmol/L (22-30); Chloride 101 mmol/L (98-107); Estimated Glomerular Filt Rate 50; Glucose 93 mg/dL (65-110); Potassium 3.9 mmol/L (3.4-5.0); Sodium 140 mmol/L (137-145)
[2023-03-27 11:27] LABS: Add Urine Microscopic? YES; Prothrombin Time 13.7 Seconds (11.1-14.7)
[2023-03-27 11:28] LABS: Partial Thromboplastin Time 28.2 SECONDS (22.3-36.8); Urine Cotinine NEGATIVE
[2023-03-27 11:29] LABS: Hemoglobin A1C 4.6 % (<5.7)
== END 2023-03-27 09:52 | disposition home or self-care (01) ==
LOC: ANHSURGERY 09:58
PROVIDERS: PCP Internal Medicine; Visit Provider Orthopaedic Surgery
DX: M17.12 Unilateral primary osteoarthritis, left knee (principal); Z01.818 Encounter for other preprocedural examination
CPT/HCPCS: 80048; 80307; 81001; 82040; 83036; 85025; 85610; 85730; 87081

== ENCOUNTER 2023-04-10 01:03 | Day surgery (SDC) | payer MEDICARE, SELFPAY ==
[2023-03-27 10:23] VITALS: BP 161/70; PULSE 48; RESP 16; TEMP 37; O2SAT 100; BMI 38.1
--- NOTE | 2023-03-27 10:36 | PC.NURSE ---
Report to the Outpatient Waiting Room, entrance under the green pavilion located off [facility], at time _6:00AM on date _04/10/23 . Planned Procedure Time: __7:30AM . Time changes happen often and if your time is changed the preop area will call you the afternoon before. - You and your visitor will be asked to self-screen and do not enter if you have any COVID symptoms. - A mask is optional within the hospital at this time. Patients may have clear liquids (water, carbonated beverages, clear teas, apple juice) until 3 hours prior to surgery with a maximum of 20 ounces. - No food from midnight until time of surgery Take the following medications with a SIP of water the morning of surgery: ___BUPROPION, BUSPIRONE, AZELASTINE NASAL SPRAY & FLONASE NASAL SPRAY NEEDED, TRAMADOL NEEDED DO NOT STOP ANY OF YOUR OTHER PRESCRIPTION MEDICATIONS PRIOR TO SURGERY ?EXCEPT THE FOLLOWING Medications to discontinue per physician ___HOLD ALL VITAMINS/SUPPLEMENTS 3 DAYS PRE-OP PER ANESTHESIA- LAST DOSE 04/06/23. HOLD NSAIDS(MELOXICAN & IBUPROFEN) PER DR ERICKSON- PATIENT CALLING TO CONFIRM Please no make-up, nail latvian, hairspray, perfume, deodorant, or body powder the day of surgery. No jewelry (including any body piercings) or valuables the day of surgery, leave them at home. Please take a shower or bath the night before, or the morning of, surgery with an antibacterial soap. Wear comfortable, loose fitting clothing. Children are encouraged to wear pajamas. - Jewelry must be removed prior to entering the operating room. Rings and piercings that are not removed may be cut off. - The hospital will not accept responsibility for valuables. - Please leave all valuables, including medications, at home the day of surgery. If you are going home after surgery, a licensed ambulance driver paramedic must drive you home. - NO public transportation without another adult if you receive anesthesia. - We recommend that an adult stay with you for 24 hours following discharge. - We also recommend that you do not drive, make important decision, drink alcoholic beverages, or take any drugs that were not prescribed by your health care provider for at least 24 hours after your discharge time. Follow any additional instructions given to you from your surgeon. If you or anyone in your household have experienced Covid symptoms in the past week, please notify your surgeon or the nurse liaison at the phone number below for possible testing. Telephone instructions given to __PATIENT and asked if any additional questions and then verbalized understanding. Patient advised to call surgeon office or pre surgery nurse liaison [phone] if any additional questions.
--- NOTE | 2023-04-09 10:37 | WPDANESEPPF ---
Anes - Initial Pre Proc Eval Procedure: Operation Date: 04/10/23 07:30 Proposed Procedures p Left Total Knee Arthroplasty - Ananth Blue MD Date/Time: 04/09/23 10:37 Surgeon: Ananth Blue MD Pre Op Diagnosis: Left Knee osteoarthritis Patient Data Age: 67 Gender: F Height: 1.67 m Weight: 106.3 kg Last Vital Signs Temp 37.0 C 03/27/23 10:23 Pulse 48 L 03/27/23 10:23 Resp 16 03/27/23 10:23 BP 161/70 H 03/27/23 10:23 Pulse Ox 100 03/27/23 10:23 O2 Del Method Room Air 03/27/23 10:23 Allergies Allergy/AdvReac Type Severity Reaction Status Date / Time morphine AdvReac Hallucinati Verified 04/10/23 06:19 ng oxycodone AdvReac Nausea Verified 04/10/23 06:19 Home Medications Medication Instructions Recorded Confirmed Type buspirone 10 mg tablet 10 mg PO BID 09/30/20 04/10/23 History fluticasone propionate 50 1 spray intranasal DAILY PRN 09/30/20 03/27/23 History mcg/actuation nasal Congestion spray,suspension hydroxychloroquine 200 mg tablet 200 mg PO .Every other day 09/30/20 04/10/23 History losartan 100 1 tablet PO QAM 09/30/20 04/10/23 History mg-hydrochlorothiazide 25 mg tablet metoprolol succinate 100 mg 100 mg PO HS 09/30/20 04/10/23 History tablet,extended release 24 hr montelukast 10 mg tablet 10 mg PO HS 09/30/20 04/10/23 History omeprazole 40 mg capsule,delayed 40 mg PO .every other day 11/05/20 04/10/23 History release acidophilus 100 million 1 cap PO DAILY 02/03/21 04/10/23 History cell-pectin, citrus 10 mg capsule cetirizine 10 mg disintegrating 10 mg PO DAILY 02/03/21 04/10/23 History tablet glucosamine sulf dipotassium Cl 1 tablet PO DAILY 02/03/21 04/10/23 History 750 mg-chondroitin sulf 600 mg tablet (Glucosamine-Chondroitin 3X Triple Strength) multivitamin 1 tablet PO DAILY 05/23/21 04/10/23 History azelastine 137 mcg (0.1 %) nasal 2 spray intranasal .PRN PRN 02/13/22 04/10/23 History spray aerosol Congestion amlodipine 10 mg tablet 5 mg PO HS 02/15/22 04/10/23 History bupropion HCl 150 mg 24 hr tablet, 150 mg PO QAM 02/15/22 04/10/23 History extended release tramadol 50 mg tablet 50 mg PO Q8H PRN pain #20 tabs 08/28/22 04/10/23 Rx ondansetron 4 mg disintegrating 4 mg PO Q6H PRN nausea and 12/12/22 03/27/23 Rx tablet vomiting #14 tabs acetaminophen 500 mg capsule 1,000 mg PO Q6H PRN Pain 03/27/23 04/10/23 History calcium carbonate 600 mg-vitamin 1 tablet PO BID 03/27/23 04/10/23 History D3 5 mcg (200 unit) tablet ibuprofen 200 mg capsule 400 mg PO Q6H PRN Pain 03/27/23 03/27/23 History meloxicam 15 mg tablet 15 mg PO QAM 03/27/23 04/10/23 History chlorhexidine gluconate 4 % 1 applic topical ONCE #237 mL 04/03/23 Rx topical liquid (Hibiclens) Patient hx anesthesia problems: post op nausea/vomiting Family hx anesthesia problems: none Results Review: All pre-operative results and documents have been reviewed as part of the pre-operative evaluation. [facility] Past Medical History Medical History ) Anxiety Arthritis BMI greater than 40 Flexion contracture GERD (gastroesophageal reflux disease) History of 2019 novel coronavirus disease (COVID-19) Hypertension Knee effusion, right Left knee DJD Lupus PONV (postoperative nausea and vomiting) Right knee DJD Right knee pain Wears glasses Surgical History Surgical History ) S/P total knee arthroplasty Rt TKA 12/06/2022 Family History Family History ) Other Family history of cardiovascular disease Hypertension Social History Social History ) Smoking status: Never smoker Second hand tobacco smoke exposure: No Additional smoking assessment comments: PT DENIES ALL FORMS OF TOBACCO USE Alcohol intake: current
[2023-04-10] VITALS (13 sets, daily range): BP systolic 138–164; BP diastolic 53–75; PULSE 47–72; RESP 14–20; TEMP 36.2–36.9; O2SAT 92–100
--- NOTE | ~2023-04-10 | XR_ITS ---
EXAMINATION: [id number] DATE: 04/10/2023 10:33 CDT INDICATION: Left total knee arthroplasty TECHNIQUE: 2 views left knee FINDINGS: There is a left total knee arthroplasty in expected position. Subcutaneous gas with fluid and air in the joint and overlying skin genaro are consistent with recent surgery. No evidence of pe riprosthetic fracture. IMPRESSION: 1. Recent left total knee arthroplasty. Reviewed, dictated and finalized at location L.
[2023-04-10] MEDS: ACETAMINOPHEN 500 MG TABLET 1000 MG PO ×2 (06:40→11:50)
[2023-04-10] MEDS: LACTATED RINGERS 1,000 ML 30 ML IV CONT ×2 (06:50→10:03)
[2023-04-10] MEDS: TRANEXAMIC ACID 1,000MG/ISO100 1,000 MG/100 ML BAG 200 MG IVPB (06:59)
--- NOTE | 2023-04-10 07:07 | WPDANESPNB ---
Anes - Peripheral Nerve Block Date/Time: 04/10/23 07:07 I have discussed with the patient/family/POA the placement of a peripheral nerve block for post-operative pain management, including associated risks, benefits, complications, and side effects. Alternative methods of post-operative analgesia were detailed. Questions were solicited and answers provided to the satisfaction of the patient/family/POA. Time-Out: A pre-procedural Time-Out was completed immediately before starting the procedure and confirmed: Patient Identification, Site, Procedure, Patient Position and the Availability of Requisite Equipment. Clinical Indications: Acute post-operative pain management requested by the operative surgeon. Nerve Block Insertion Note Anes-nerve block: adductor canal left Patient position: supine Skin prep: chlorhexidine Needle: 22 gauge, stimulating, insulated echogenic needle. Needle length: 80 mm Technique: ultrasound Injectate: bupivacaine 0.5% with epi 5 mcg/ml (30cc - no epi) Observations: tolerated well Complications: none Procedure start time:: 730 Procedure end time:: 734
[2023-04-10] MEDS: SCOPOLAMINE 1.5 MG PATCH TRANSDERM (07:12)
--- NOTE | 2023-04-10 07:17 | WPDHPUPDATE1 ---
History and Physical Update Update Date/Time: 04/10/23 07:17 History and Physical has been reviewed, including an updated exam of the patient. There are NO changes in the patient's condition. Risks, benefits, and alternatives have been discussed and questions answered. Patient agrees to proceed with procedure. PLAN IS FOR LEFT KNEE REPLACEMENT
[2023-04-10] MEDS: ceFAZolin 2 GM/D5W 50 ML 2 GM/50 ML BAG IVPB ×3 (07:38→23:39)
[2023-04-10] MEDS: GENTAMICIN BONE CEMENT REFOBACIN 1 EACH TOPICAL (08:40)
[2023-04-10] MEDS: TRANEXAMIC ACID 1,000 MG/10 ML AMPUL 1000 MG IV PUSH (09:23)
--- NOTE | 2023-04-10 09:55 | W.PM.PROC2 ---
Procedure Note - Detailed Date of Procedure 04/10/23 Pre-op Diagnosis Left Knee osteoarthritis Post-op Diagnosis Same Procedure Performed L TKA Surgeon Ananth Blue MD Anesthesia General Description of Procedure THE LEFT KNEE WAS PREPPED AND DRAPED IN THE STERILE FASHION. A MIDLINE SKIN INCISION WAS MADE. A MEDIAL PARAPATELLAR ARTHROTOMY WAS MADE. THE PATELLA WAS EVERTED. THERE WAS TRICOMPARTMENT DJD. THERE WAS MINIMAL PATELLA DJD. AN INTRAMEDULLARY [place] WAS PLACED IN THE FEMUR. A DISTAL FEMORAL CUT WAS MADE IN 5 DEGREES OF VALGUS REMOVING APPROXIMATELY 9 MM OF BONE FROM THE DISTAL FEMUR. THE FEMUR WAS SIZED TO 60. A 60 FEMORAL CUTTING BLOCK WAS PLACED IN 3 DEGREES OF EXTERNAL ROTATION AND IN ALIGNMENT WITH NEREIDA'S LINE AND THE TRANSEPICONDYLAR AXIS. ANTERIOR POSTERIOR AND CHAMFER CUTS WERE MADE. THE CUTS WERE EXCELLENT. NEXT AN INTRAMEDULLARY CUTTING GUIDE WAS PLACED IN THE TIBIA. A TRANS TIBIAL CUT WAS MADE ALONG THE LONG AXIS OF THE TIBIA. APPROXIMATELY 10 MM OF BONE WAS REMOVED FROM THE HIGH SIDE OF THE TIBIA. THE TIBIA WAS THEN PLANED TO A SMOOTH SURFACE. POSTERIOR FEMORAL OSTEOPHYTES WERE REMOVED FROM THE FEMORAL CONDYLES. A 67 TIBIAL TRIAL WAS PLACED IN ALIGNMENT WITH THE 1/3 MEDIAL ASPECT OF THE TIBIAL TUBERCLE. THEN A 60 FEMORAL TRIAL COMPONENT WAS PLACED. BOTH HAD EXCELLENT FITS. EVENTUALLY A 10 MM POLYETHYLENE TRIAL COMPONENT WAS PLACED. THE KNEE WAS TAKEN THROUGH A RANGE OF MOTION. THE KNEE CAME OUT TO FULL EXTENSION. THERE WAS NO ABNORMAL TILT TO THE PATELLA. THERE WAS GOOD A/P AND VARUS/VALGUS STABILITY. THERE WAS NO EXCESSIVE ROLL BACK WITH FLEXION. THE TRIAL COMPONENTS WERE REMOVED. THEN A 60 FEMORAL COMPONENT AND 67 TIBIAL COMPONENT WITH A 10 POLYETHYLENE COMPONENT WERE CEMENTED INTO PLACE. ONCE THE CEMENT WAS HARD THE KNEE WAS TAKEN THROUGH A ROM AGAIN AND FOUND TO BE STABLE WITH NO PATELLA TILT NO EXCESSIVE ROLL BACK WITH FLEXION AND GOOD STABILITY WITH COMPLETE AND FULL EXTENSION. THE KNEE WAS IRRIGATED WITH STERILE BETADINE AND WATER FOR ABOUT 3 MINUTES. THE BLEEDERS WERE CAUTERIZED. THE ARTHROTOMY WAS REPAIRED WITH NUMBER 1 VICRYL. THE SUB CUTANEOUS LAYER WITH 2-0 VICRYL AND THE SKIN WITH RAHAT. THE WOUND WAS WASHED AND A STERILE DRESSING WAS APPLIED. PATIENT WAS EXTUBATED. Estimated Blood Loss -150.0 Pathology None sent Complications No immediate complications Condition Stable Disposition PACU
[2023-04-10] MEDS: fentaNYL CITRATE INJ (*CRX) 100 MCG/2 ML VIAL 25 MCG IV PUSH ×4 (10:49→11:21)
[2023-04-10] MEDS: SODIUM CHLORIDE 0.9% IV 1,000 ML 125 ML IV CONT (11:34)
--- NOTE | 2023-04-10 11:46 | ADMGEN ---
This patient, Tania Downing, was admitted to [facility] Surg Room 332-01. Patient/family oriented to hospital policies and general routines including ID bracelet, bed and alarms, visiting hours, pain management, procedures, bathroom and other care routines, personal items, smoking policy, room service/diet, and visiting hours. Information on how to activate the Rapid Response Team has been discussed. Patient/Family are encouraged to report perceived risks to care and to ask questions if they do not understand what they are told or what they should do.
[2023-04-10] MEDS: ONDANSETRON INJ 4 MG/2 ML VIAL IV PUSH (12:07)
[2023-04-10] MEDS: LOSARTAN POTASSIUM 100 MG TABLET PO (12:26)
[2023-04-10] MEDS: LORATADINE 10 MG TABLET PO (12:26)
[2023-04-10] MEDS: PANTOPRAZOLE 40 MG TABLET PO (12:26)
[2023-04-10] MEDS: hydroCHLOROthiazide 25 MG TABLET PO (12:26)
[2023-04-10] MEDS: KETOROLAC 15 MG/ML VIAL (*BKC) IV PUSH ×3 (12:26→23:43)
[2023-04-10] MEDS: SENNA/DOCUSATE SODIUM TABLET 2 TAB PO (17:08)
[2023-04-10] MEDS: busPIRone HCL 10 MG TABLET PO (17:08)
[2023-04-10] MEDS: amLODIPine BESYLATE 5 MG TABLET PO (21:35)
[2023-04-10] MEDS: ASPIRIN 325 MG ENTERIC TABLET PO (21:35)
[2023-04-10] MEDS: METOPROLOL SUCCINATE EXT REL 100 MG TABCR PO (21:35)
[2023-04-11 01:07] VITALS: BP 138/53; PULSE 53; RESP 18; TEMP 36.1; O2SAT 95
[2023-04-11 05:07] VITALS: BP 135/47; PULSE 54; RESP 16; TEMP 36.2; O2SAT 99
[2023-04-11] MEDS: KETOROLAC 15 MG/ML VIAL (*BKC) IV PUSH ×2 (06:04→12:43)
[2023-04-11] MEDS: ceFAZolin 2 GM/D5W 50 ML 2 GM/50 ML BAG IVPB (06:05)
[2023-04-11 06:11] LABS: Basophils Percent Auto 0.3 % (0.2-1.2); Hematocrit 32.1 % (37.0-47.0); Hemoglobin 10.7 g/dL (12.0-15.0); Immature Granulocyte Absolute 0.04 K/mm3 (0.00-0.031); Immature Granulocyte Percent A 0.3 % (0-0.5); Lymphocytes Absolute Auto 0.85 K/mm3 (0.9-3.2); Mean Corpuscular HGB Conc 33.3 g/dl (32-36); Mean Corpuscular Hemoglobin 30.6 pg (26-34); Mean Corpuscular Volume 91.7 fl (80-100); Mean Platelet Volume 10.2 fl (7.4-10.4); Neutrophils Absolute Auto 10.3 K/mm3 (1.3-6.7); Neutrophils Percent Auto 84.4 % (45.5-73.1); Platelet Count Result 196 k/mm3 (150-375); Red Cell Distribution Width 12.9 % (11.5-14.5); White Blood Count 12.2 K/mm3 (4.5-10.0)
[2023-04-11 06:21] LABS: Anion Gap 5 mmol/L (8-16); Blood Urea Nitrogen 18 mg/dL (7-17); Calcium 8.1 mg/dL (8.4-10.2); Carbon Dioxide 30 mmol/L (22-30); Chloride 101 mmol/L (98-107); Estimated CRCL calculation 59 ml/min; Estimated Glomerular Filt Rate 55; Glucose 117 mg/dL (65-110); Potassium 3.5 mmol/L (3.4-5.0); Sodium 136 mmol/L (137-145)
[2023-04-11 08:00] VITALS: BP 141/75; PULSE 51; RESP 16; TEMP 35.8; O2SAT 98
[2023-04-11 09:01] VITALS: O2SAT 95
[2023-04-11] MEDS: buPROPion HCL XL (24 HR) 150 MG TABCR PO (09:45)
[2023-04-11] MEDS: polyethylene glycoL 3350 17 GM POWD.PACK PO (09:45)
[2023-04-11] MEDS: ASPIRIN 325 MG ENTERIC TABLET PO (09:45)
[2023-04-11] MEDS: PANTOPRAZOLE 40 MG TABLET PO (09:45)
[2023-04-11] MEDS: SENNA/DOCUSATE SODIUM TABLET 2 TAB PO (09:45)
[2023-04-11] MEDS: busPIRone HCL 10 MG TABLET PO (09:45)
[2023-04-11] MEDS: LOSARTAN POTASSIUM 100 MG TABLET PO (09:45)
[2023-04-11] MEDS: hydroCHLOROthiazide 25 MG TABLET PO (09:46)
[2023-04-11] MEDS: LORATADINE 10 MG TABLET PO (09:46)
--- NOTE | 2023-04-11 10:33 | PM.PNORT ---
Progress Note: A&P Assessment and Plan (1) S/P total knee arthroplasty: Code(s): Z96.659 - Presence of unspecified artificial knee joint Status: Acute Assessment and Plan: POD 1 DOING WELL. PAIN IS CONTROLLED, GOOD PROGRESS WITH PT. OK TO DC HOME F/U IN 3 WEEKS Subjective Subjective Date/Time Seen: 04/11/23 10:33 Interval history: POD 1 DOING WELL. NO CALF PAIN. GOOD PROGRESS WITH PT Exam Extrem: Other: VSS AFEBRILE DRESSING DRY NV INTACT NEG HOMANS SIGN CALF NON TENDER Objective Data Vital Signs Vital Signs: Vital Signs - 24 hr 04/10/23 10:40 04/10/23 10:58 04/10/23 11:15 Temperature Pulse Rate 60 63 56 L Respiratory Rate 15 18 18 Blood Pressure 144/65 H 139/63 147/75 H Pulse Oximetry 92 98 92 Oxygen Delivery Room Air Room Air Room Air 04/10/23 12:11 04/10/23 12:53 04/10/23 11:22 Temperature 36.4 C Pulse Rate 55 L Respiratory Rate 19 Blood Pressure 146/65 H Pulse Oximetry 93 Oxygen Delivery Room Air Room Air 04/10/23 11:37 04/10/23 12:07 04/10/23 13:07 Temperature 36.2 C L 36.3 C L 36.3 C L Pulse Rate 56 L 50 L 51 L Respiratory Rate 20 20 20 Blood Pressure 162/72 H 152/69 H 164/73 H Pulse Oximetry 93 95 100 Oxygen Delivery 04/10/23 17:07 04/10/23 21:07 04/10/23 21:35 Temperature 36.3 C L 36.3 C L Pulse Rate 55 L 62 62 Respiratory Rate 19 16 Blood Pressure 162/70 H 142/53 H Pulse Oximetry 93 98 Oxygen Delivery 04/11/23 01:07 04/11/23 05:07 04/11/23 09:01 Temperature 36.1 C L 36.2 C L Pulse Rate 53 L 54 L Respiratory Rate 18 16 Blood Pressure 138/53 L 135/47 L Pulse Oximetry 95 99 95 Oxygen Delivery Room Air 04/11/23 08:00 Temperature 35.8 C L Pulse Rate 51 L Respiratory Rate 16 Blood Pressure 141/75 H Pulse Oximetry 98 Oxygen Delivery Intake/Output Intake/Output: Intake & Output 04/08/23 04/09/23 04/10/2317/23 23:59 23:59 23:59 23:59 Intake Total 2120 1170 Balance 2120 1170 Meds/Results Medications: Active Medications Generic Name Dose Route Start Last Admin Trade Name Freq PRN Reason Stop Dose Admin Acetaminophen 1,000 mg 04/10/23 11:22 04/10/23 11:50 Acetaminophen 500 Mg Tablet PO 1,000 mg Q6H PRN Administration Mild Pain (1-3) Amlodipine Besylate 5 mg 04/10/23 21:00 04/10/23 21:35 Amlodipine Besylate 5 Mg Tablet PO 5 mg HS AMBERLY Administration Aspirin 325 mg 04/10/23 21:00 04/11/23 09:45 Aspirin 325 Mg Enteric Tablet PO 325 mg Q12HR AMBERLY Administration Bupropion HCl 150 mg 04/11/23 09:00 04/11/23 09:45 Bupropion Hcl Xl (24 Hr) 150 Mg Tabcr PO 150 mg QAM AMBERLY Administration Buspirone HCl 10 mg 04/10/23 17:00 04/11/23 09:45 Buspirone Hcl 10 Mg Tablet PO 10 mg BID AMBERLY Administration Diazepam 5 mg 04/10/23 11:22 Diazepam (*Crx) 5 Mg Tablet PO Q8H PRN Spasms Diphenhydramine HCl 25 mg 04/10/23 11:22 Diphenhydramine Hcl Inj 50 Mg/Ml Vial IV PUSH Q6H PRN Itching Hydrochlorothiazide 25 mg 04/10/23 11:40 04/11/23 09:46 Hydrochlorothiazide 25 Mg Tablet PO 05/11/23 11:39 25 mg QAM AMBERLY Administration Ibuprofen 400 mg 04/10/23 11:22 Ibuprofen 400 Mg Tablet PO Q6H PRN Mild Pain (1-3) Ketorolac Tromethamine 15 mg 04/10/23 12:00 04/11/23 06:04 Ketorolac 15 Mg/Ml Vial (*Bkc) IV PUSH 04/11/23 12:01 15 mg Q6HR AMBERLY Administration Loratadine 10 mg 04/10/23 11:40 04/11/23 09:46 Loratadine 10 Mg Tablet PO 05/11/23 11:39 10 mg DAILY AMBERLY Administration Losartan Potassium 100 mg 04/10/23 11:45 04/11/23 09:45 Losartan Potassium 100 Mg Tablet PO 05/11/23 11:44 100 mg QAM AMBERLY Administration Metoprolol Succinate 100 mg 04/10/23 21:00 04/10/23 21:35 Metoprolol Succinate Ext Rel 100 Mg Tabcr PO 100 mg HS AMBERLY Administration Miscellaneous Information 0 each 04/10/23 00:01 Tylenol And Ibuprofen Both Entered Prn Mild Pain - Please Clarify
--- NOTE | 2023-04-11 10:35 | PM.DS ---
DS: Admitting Diagnosis Discharge Date 04/11/23 Admitting Diagnosis LEFT KNEE DJD DS: Discharge Diagnosis Discharge Diagnosis (1) S/P total knee arthroplasty: Code(s): Z96.659 - Presence of unspecified artificial knee joint Status: Acute DS: Summary Hospital Course Reason for hospitalization: LEFT TKA Hospital Course: PATIENT WAS ADMITTED S/P TOTAL KNEE ARTHROPLASTY FOR POSTOPERATIVE MEDICAL MANAGEMENT, PAIN CONTROL AND MOBILIZATION WITH PHYSICAL AND OCCUPATIONAL THERAPY. THE PATIENT PROGRESSED WELL WITH PT/OT. LABS AND VITALS REMAINED STABLE AND PAIN WELL CONTROLLED. THE PATIENT HAS BEEN CLEARED TO BE DISCHARGED HOME. FOLLOW UP APPOINTMENT SCHEDULED. DISCHARGE INSTRUCTIONS DISCUSSED AT LENGTH WITH THE PATIENT. MEDICATIONS REVIEWED. Status at Discharge Cognitive/behavioral status at discharge: STABLE Functional status at discharge: uses cane/walker Time Spent with Patient Time attestation: Total time spent providing and/or coordinating discharge services: DS: Data Data Completed and Pending Labs on day of discharge: Labs from last 24 hours 04/11/23 05:34 WBC 12.2 H RBC 3.50 L Hgb 10.7 L D Hct 32.1 L MCV 91.7 MCH 30.6 MCHC 33.3 RDW 12.9 Plt Count 196 MPV 10.2 Immature Gran % (Auto) 0.3 Neut % (Auto) 84.4 H Lymph % (Auto) 7.0 L Lynn % (Auto) 8.0 Eos % (Auto) 0.0 Baso % (Auto) 0.3 Lymph # (Auto) 0.85 L Lynn # (Auto) 1.0 H Eos # (Auto) 0.0 Baso # (Auto) 0.0 Abs Immat Gran (auto) 0.04 H Absolute Neuts (auto) 10.3 H Absolute Nucleated RBC 0.0 Nucleated RBC % 0.0 Sodium 136 L Potassium 3.5 Chloride 101 Carbon Dioxide 30 Anion Gap 5 L BUN 18 H Creatinine 1.00 Estim Creat Clear Calc 59 Estimated GFR 55 L Glucose 117 H Calcium 8.1 L Discharge Plan Discharge Patient Disposition: Home Health Service Discharge Instructions: Remove the Scopolamine patch that was placed behind your left ear in 72 hours or less. Wash your hands after touching. Post Op Total Knee Replacement Instructions Dr. Ananth Blue [phone] Your dressing will be changed prior to your discharge. You will be sent home with one additional dressing to be changed on post op day 7 by the home health RN. Your genaro will be removed on the 14th day after surgery and steri-strips will be placed. Please practice good hand hygiene and do not touch your incision in order to prevent infection. You may shower with your dressing but do not submerge in a bath tub. Do not drive or operate machinery until you are released by Dr. Blue. Do not walk without a walker for any reason until you are released by Dr. Blue. Continue to use your ice machine. Please use a towel or pillow case to protect your skin before applying your ice machine. Do NOT place a pillow under your knee. You may use a pillow from the calf down if needed. This will prevent a flexion contracture postoperatively. You may begin use of your CPM machine at home if you have been given one pre-operatively. DO NOT USE WHILE YOU ARE SLEEPING. Your first post op appointment was sent to you via mail preoperatively. If you have any questions or are unable to make your appointment, please contact our office for scheduling questions. Your medications have been sent to your pharmacy. You have been sent home with pain medication. Please pickling drum operator an over the counter stool softener to prevent constipation due to narcotic use. Please keep this in mind during your postoperative recovery. If you are not experiencing regular bowel movements, please contact our office for further instruction. Please contact our office with any questions/concerns regarding your knee at [phone]. Patient Instructions: Antibiotic Form Stand Alone Forms: General Discharge Information Follow-up/Referrals: Ananth Blue MD [Physician] - Keep Reg. Scheduled Appt. Discharge Medications: New oxycodone-acetaminophen 5-325 mg Tablet 1 - 2
[2023-04-11 12:00] VITALS: BP 153/71; PULSE 49; RESP 22; TEMP 35.9; O2SAT 100
[2023-04-11] MEDS: ACETAMINOPHEN 500 MG TABLET 1000 MG PO (13:02)
== END 2023-04-11 13:20 | disposition home health service (06) ==
LOC: ANHSURGERY 07:08 → ANH3MEDSUR 11:24
PROVIDERS: PCP Internal Medicine; Visit Provider Orthopaedic Surgery
PROC: (CPT 27447; principal; 2023-04-10 07:30)
DX: M17.12 Unilateral primary osteoarthritis, left knee (principal); Z96.651 Presence of right artificial knee joint; K21.9 Gastro-esophageal reflux disease without esophagitis; I10 Essential (primary) hypertension; M32.9 Systemic lupus erythematosus, unspecified
CPT/HCPCS: 27447; 36415; 73560; 80048; 85025; 86850; 86900; 86901; 97110; 97116; 97161; 97165; 97530; 97535; A9270; C1713; C1776; J0171; J0690; J1100; J1170; J1885; J2250; J2405; J2704; J2795; J3010; J7030; J7120

== ENCOUNTER 2023-06-05 13:01 | Inpatient (IN) | payer MEDICARE, SELFPAY ==
--- NOTE | ~2023-06-05 | XR_ITS ---
EXAMINATION: XR knee LT 3V DATE: 06/05/2023 14:16 INDICATION: Swelling at the left knee with blister/wound anteriorly. TECHNIQUE: Anteroposterior, sunrise and crosstable lateral views of the left knee were obtained COMPARISON: None. FINDINGS: Left total knee arthroplasty without patellar resurfacing which appears well seated in near-anatomic alignment. No periprosthetic lucency to suggest loosening or infection. No fracture. Small enthesophy stephen at the anterior tibial tuberosity and at the upper pole of the patella. No left knee joint effusi on. IMPRESSION: 1. Expected appearance of a left total knee arthroplasty with no joint effusion or acute osseous abno rmality. Reviewed, dictated and finalized at location A. IMPRESSION: 1. Expected appearance of a left total knee arthroplasty with no joint effusion or acute osseous abnormality.
--- NOTE | ~2023-06-05 | US_ITS ---
EXAMINATION: US venous doppler [facility] DATE: 06/06/2023 09:21 INDICATION: Left lower limb swelling post total knee arthroplasty TECHNIQUE: Grayscale ultrasound images without and with compression and Doppler ultrasound images of the left lower extremity veins were obtained. COMPARISON: None. FINDINGS: The visualized portions of left common femoral vein, profunda (deep) femoral vein, femoral vein, popl iteal vein, peroneal veins, posterior tibial veins, gastrocnemius vein and greater saphenous vein out flow are patent. IMPRESSION: 1. No deep venous thrombosis in the left lower limb. Reviewed, dictated and finalized at location A.
[2023-06-05 13:19] VITALS: BP 153/82; PULSE 71; RESP 18; TEMP 37.7; O2SAT 98
[2023-06-05 13:46] LABS: Basophils Absolute Auto 0.1 K/mm3 (0.0-0.1); Basophils Percent Auto 0.3 % (0.2-1.2); Eosinophils Percent Auto 0.1 % (0-4.4); Immature Granulocyte Absolute 0.09 K/mm3 (0.00-0.031); Immature Granulocyte Percent A 0.5 % (0-0.5); Lymphocytes Absolute Auto 0.62 K/mm3 (0.9-3.2); Lymphocytes Percent Auto 3.6 % (18.3-44.2); Mean Corpuscular HGB Conc 33.3 g/dl (32-36); Mean Corpuscular Hemoglobin 30.3 pg (26-34); Mean Corpuscular Volume 90.9 fl (80-100); Mean Platelet Volume 9.5 fl (7.4-10.4); Monocytes Percent Auto 5.6 % (2.6-8.5); Neutrophils Absolute Auto 15.5 K/mm3 (1.3-6.7); Neutrophils Percent Auto 89.9 % (45.5-73.1); Platelet Count Result 211 k/mm3 (150-375); Red Blood Count 3.96 M/mm3 (4.2-5.4); Red Cell Distribution Width 13.8 % (11.5-14.5); White Blood Count 17.3 K/mm3 (4.5-10.0)
[2023-06-05 14:01] LABS: Alanine Aminotransferase 17 U/L (6-35); Albumin Level 4.4 g/dL (3.5-5.1); Alkaline Phosphatase 83 U/L (38-126); Anion Gap 5 mmol/L (8-16); Aspartate Amino Transferase 26 U/L (14-36); Blood Urea Nitrogen 15 mg/dL (7-17); CRP 2.9 mg/dL (<1.0); Calcium 9.1 mg/dL (8.4-10.2); Carbon Dioxide 30 mmol/L (22-30); Chloride 101 mmol/L (98-107); Estimated CRCL calculation 59 ml/min; Estimated Glomerular Filt Rate 55; Glucose 87 mg/dL (65-110); Potassium 3.4 mmol/L (3.4-5.0); Sodium 136 mmol/L (137-145)
[2023-06-05 14:44] LABS: Erythrocyte Sedimentation Rate 34 mm/hr (0-20)
[2023-06-05 14:56] VITALS: BP 144/96; PULSE 56; RESP 16; TEMP 36.6; O2SAT 97
--- NOTE | 2023-06-05 15:47 | ED.GENADULT ---
HPI - General Adult General Chief complaint: Wound/Laceration Stated complaint: surgical wound of left knee (march 2023)/fever Time Seen by Provider: 06/05/23 15:47 Source: patient Mode of arrival: ambulatory Limitations: no limitations History of Present Illness HPI narrative: 67 years old white female referred to the emergency room because of running fever, left knee wound check. Patient is status post left knee replacement March 2023, has been having nonhealing wound anterior to left knee since the surgery. Patient had some debridement 5 days ago and yesterday. Today patient developed fever 101.4, had Tylenol prior to arrival, was asked to come to our emergency room by her orthopedic for further evaluation. She denies any headache,, nausea, vomiting, abdominal pain, chest pain, back pain. Related Data Home Medications Medication Instructions Recorded Confirmed buspirone 10 mg tablet 10 mg PO BID 09/30/20 06/04/23 fluticasone propionate 50 1 spray intranasal DAILY PRN 09/30/20 06/04/23 mcg/actuation nasal Congestion spray,suspension hydroxychloroquine 200 mg tablet 200 mg PO .Every other day 09/30/20 06/04/23 losartan 100 1 tablet PO QAM 09/30/20 06/04/23 mg-hydrochlorothiazide 25 mg tablet metoprolol succinate 100 mg 100 mg PO HS 09/30/20 06/04/23 tablet,extended release 24 hr montelukast 10 mg tablet 10 mg PO HS 09/30/20 06/04/23 omeprazole 40 mg capsule,delayed 40 mg PO .every other day 11/05/20 06/04/23 release acidophilus 100 million 1 cap PO DAILY 02/03/21 06/04/23 cell-pectin, citrus 10 mg capsule cetirizine 10 mg disintegrating 10 mg PO DAILY 02/03/21 06/04/23 tablet glucosamine sulf dipotassium Cl 1 tablet PO DAILY 02/03/21 06/04/23 750 mg-chondroitin sulf 600 mg tablet (Glucosamine-Chondroitin 3X Triple Strength) multivitamin 1 tablet PO DAILY 05/23/21 06/04/23 azelastine 137 mcg (0.1 %) nasal 2 spray intranasal .PRN PRN 02/13/22 06/04/23 spray aerosol Congestion amlodipine 10 mg tablet 5 mg PO HS 02/15/22 06/04/23 bupropion HCl 150 mg 24 hr tablet, 150 mg PO QAM 02/15/22 06/04/23 extended release acetaminophen 500 mg capsule 1,000 mg PO Q6H PRN Pain 03/27/23 06/04/23 calcium carbonate 600 mg-vitamin 1 tablet PO BID 03/27/23 06/04/23 D3 5 mcg (200 unit) tablet ibuprofen 200 mg capsule 400 mg PO Q6H PRN Pain 03/27/23 06/04/23 meloxicam 15 mg tablet 15 mg PO QAM 03/27/23 06/04/23 Allergies Allergy/AdvReac Type Severity Reaction Status Date / Time morphine AdvReac Hallucinati Verified 06/05/23 13:02 ng oxycodone AdvReac Nausea Verified 06/05/23 13:02 Review of Systems Review of Systems: All systems reviewed & are unremarkable except as noted in HPI and below PMFSH Past Medical History Medical History Anxiety Arthritis BMI greater than 40 Flexion contracture GERD (gastroesophageal reflux disease) History of 2019 novel coronavirus disease (COVID-19) Hypertension Knee effusion, right Left knee DJD Lupus Open knee wound PONV (postoperative nausea and vomiting) Right knee DJD Right knee pain Wears glasses Surgical History Surgical History S/P total knee arthroplasty Rt TKA 12/06/2022 S/P total knee arthroplasty Left TKA Family History Family History Other Family history of cardiovascular disease Hypertension Social History Social History Smoking status: Never smoker Second hand tobacco smoke exposure: No Additional smoking assessment comments: PT DENIES ALL FORMS OF TOBACCO USE Alcohol intake: current Drinks per week: 4 Substance use: never Substance use type: does not use Lack of Transportation: No Lack of Food: Never True Current Housing: I Have Housing Concerned About Future Housing: No Difficulty Paying Gas/Electric Bills
[2023-06-05] MEDS: PIPERACILLN/TAZ 3.375GM/NS50ML 3.375 GM/50 ML BAG IVPB ×2 (16:36→23:24)
--- NOTE | 2023-06-05 16:55 | PM.IMHP ---
H&P: HPI History of Present Illness Date/Time: 06/05/23 17:45 Chief Complaint: Left knee wound. Narrative: This is a very pleasant 67-year-old female with hypertension and pre-lupus who presented to the emergency department via private vehicle for evaluation of a left knee wound. The patient provides the following history. She had a left total knee arthroplasty done on 04/10/2023. About a week after her surgery home health came for a visit and change her dressing at which time she noticed a small blister on the knee. The area was redressed and the next week she had her genaro removed in Dr. Blue's office at which time she noticed that the blister had ruptured on the left lateral aspect of the knee which he has been following in the office. On 05/17/2023 she was started on Bactrim and she has been following up frequently for local wound care. She had an appointment yesterday at which time the area was cleaned and dressed with calcium alginate and a Band-Aid. Later that evening she developed aches and she has developed a fever up to 101.4? F today. She has also noticed redness and swelling about the knee and she was directed to come to the ER. Labs today were significant for WBC count of 17.3 and a CRP of 2.9. She was started on vancomycin and Zosyn and she is being admitted in this setting for further antibiotics and orthopedic consultation. At the time my evaluation she has no complaints aside from those as listed above. She denies cold and flu symptoms, vomiting, diarrhea, and dysuria. No known history of multidrug resistant organism or DVT. She is able to bend the knee joint without significant pain. Review of Systems Review of Systems: Twelve systems were reviewed and are negative except for as per HPI. 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 Surgical History Surgical History (Updated 06/05/23 @ 17:01 by Rowena Perez PA-C) History of bilateral knee arthroplasty Right TKA on 12/06/2022. Left TKA on 04/10/2023. History of cholecystectomy History of dilation and curettage History of hernia repair History of tonsillectomy Family History Family History Other Family history of cardiovascular disease Hypertension Social History Social History (Updated 06/05/23 @ 22:28 by Rowena Perez PA-C) Social History: Surrogate medical decision maker: Chris Downing, spouse. Code status: Full code. Smoking status: Never smoker Second hand tobacco smoke exposure: No Alcohol intake: current Drinks per week: 2 Substance use: never Substance use type: does not use Lack of Transportation: No Lack of Food: Never True Current Housing: I Have Housing Concerned About Future Housing: No Difficulty Paying Gas/Electric Bills: No Difficulty Paying for Meds: No Currently Unemployed: No Education: Don't Know Difficulty w/ Childcare or Family Care: No Living arrangements: with family Additional living arrangements comments: Lives with spouse in [place]. Spiritual care concerns: No Meds Home Medications and Allergies Home Medications Medication Instructions Recorded Confirmed Type buspirone 10 mg tablet 10 mg PO Q12H 09/30/20 06/05/23 History fluticasone propionate 50 1 spray intranasal DAILY PRN 09/30/20 06/05/23 History mcg/actuation nasal Congestion spray,suspension hydroxychloroquine 200 mg tablet 200 mg PO .Every other day 09/30/20 06/05/23 History losartan 100 1 tablet PO QAM 09/30/20 06/05/23 History mg-hydrochlorothiazide 25 mg tablet metoprolol succinate 100 mg 100 mg PO HS 09/30/20 06/05/23 History tablet,extended release 24 hr montelukast 10 mg tablet 10 mg PO HS 09/30/20 06/05/23 History omeprazole 40 mg capsule,delayed 40 m
[2023-06-05 18:13] VITALS: BP 136/45; PULSE 55; RESP 16; O2SAT 97
[2023-06-05 18:33] VITALS: BP 148/61; PULSE 60; RESP 18; TEMP 37.6; O2SAT 100
[2023-06-05 18:44] VITALS: BMI 39.0
--- NOTE | 2023-06-05 18:51 | ADMGEN ---
This patient, Tania Downing, was admitted to 3 [facility] S[facility] Room 313-01. Patient/family oriented to hospital policies and general routines including ID bracelet, bed and alarms, visiting hours, pain management, procedures, bathroom and other care routines, personal items, smoking policy, room service/diet, and visiting hours. Information on how to activate the Rapid Response Team has been discussed. Patient/Family are encouraged to report perceived risks to care and to ask questions if they do not understand what they are told or what they should do.
[2023-06-05] MEDS: SODIUM CHLORIDE 0.9% IV 1,000 ML 150 ML IV CONT (19:45)
[2023-06-05 21:42] VITALS: BP 168/47; PULSE 73; RESP 18; TEMP 37.4; O2SAT 100
[2023-06-05 23:23] VITALS: PULSE 72
[2023-06-05] MEDS: METOPROLOL SUCCINATE EXT REL 100 MG TABCR PO (23:23)
[2023-06-05] MEDS: amLODIPine BESYLATE 5 MG TABLET PO (23:23)
[2023-06-05] MEDS: busPIRone HCL 10 MG TABLET PO (23:23)
[2023-06-05] MEDS: MONTELUKAST SODIUM 10 MG TABLET PO (23:23)
[2023-06-06 05:30] VITALS: BP 119/50; PULSE 54; RESP 16; TEMP 36.5; O2SAT 98
[2023-06-06] MEDS: PIPERACILLN/TAZ 3.375GM/NS50ML 3.375 GM/50 ML BAG IVPB ×4 (06:03→23:59)
[2023-06-06 06:47] LABS: Anion Gap 7 mmol/L (8-16); Blood Urea Nitrogen 13 mg/dL (7-17); Calcium 8.6 mg/dL (8.4-10.2); Carbon Dioxide 29 mmol/L (22-30); Chloride 103 mmol/L (98-107); Estimated CRCL calculation 54 ml/min; Estimated Glomerular Filt Rate 50; Glucose 94 mg/dL (65-110); Magnesium 2.1 mg/dL (1.6-2.3); Potassium 3.2 mmol/L (3.4-5.0); Sodium 139 mmol/L (137-145)
[2023-06-06 06:51] LABS: Basophils Percent Auto 0.3 % (0.2-1.2); Eosinophils Absolute Auto 0.1 K/mm3 (0-0.3); Eosinophils Percent Auto 0.6 % (0-4.4); Hematocrit 33.1 % (37.0-47.0); Hemoglobin 10.9 g/dL (12.0-15.0); Immature Granulocyte Absolute 0.03 K/mm3 (0.00-0.031); Immature Granulocyte Percent A 0.3 % (0-0.5); Lymphocytes Absolute Auto 0.95 K/mm3 (0.9-3.2); Lymphocytes Percent Auto 9.9 % (18.3-44.2); Mean Corpuscular HGB Conc 32.9 g/dl (32-36); Mean Corpuscular Volume 91.2 fl (80-100); Mean Platelet Volume 10.2 fl (7.4-10.4); Monocytes Absolute Auto 0.7 K/mm3 (0.1-0.6); Monocytes Percent Auto 7.1 % (2.6-8.5); Neutrophils Absolute Auto 7.9 K/mm3 (1.3-6.7); Neutrophils Percent Auto 81.8 % (45.5-73.1); Platelet Count Result 194 k/mm3 (150-375); Red Blood Count 3.63 M/mm3 (4.2-5.4); Red Cell Distribution Width 13.9 % (11.5-14.5); White Blood Count 9.6 K/mm3 (4.5-10.0)
[2023-06-06 08:00] VITALS: PULSE 55; RESP 16; O2SAT 97
[2023-06-06] MEDS: LOSARTAN POTASSIUM 100 MG TABLET PO (08:29)
[2023-06-06] MEDS: busPIRone HCL 10 MG TABLET PO ×2 (08:29→20:34)
[2023-06-06] MEDS: LORATADINE 10 MG TABLET PO (08:29)
[2023-06-06] MEDS: MULTIVITAMINS THERAPEUTIC TAB (*BKC) 1 TABLET PO (08:29)
[2023-06-06] MEDS: PANTOPRAZOLE 40 MG TABLET PO (08:29)
[2023-06-06] MEDS: hydroCHLOROthiazide 25 MG TABLET PO (08:29)
[2023-06-06] MEDS: buPROPion HCL XL (24 HR) 150 MG TABCR PO (08:29)
[2023-06-06] MEDS: ACIDOPHILUS/BULGARICUS CHEWABLE TABLET 1 TABLET BY MOUTH (08:30)
[2023-06-06 09:02] VITALS: PULSE 55; O2SAT 97
--- NOTE | 2023-06-06 09:14 | PM.IMPN ---
Progress Note: A&P Assessment and Plan (1) Cellulitis of left leg: Code(s): L03.116 - Cellulitis of left lower limb Status: Acute Assessment and Plan: -initially presented with fever of 101.4, leukocytosis of 17, and erythema, edema, warmth to left knee -started on vancomycin and Zosyn empirically. White blood cell count has improved to 9 today patient remains afebrile overnight. -wound culture ordered -blood cultures pending -wound care per ortho and wound care nurse -ruchi bernstein from Orthopedics (2) Postoperative wound infection: Code(s): T81.49XA - Infection following a procedure, other surgical site, initial encounter Status: Acute Assessment and Plan: see treatment for cellulitis of left leg (3) Hypertension: Code(s): I10 - Essential (primary) hypertension Status: Acute Assessment and Plan: Blood pressures reviewed and stable. Blood pressure this morning is 119/50, heart rate 55. Home medications restarted. (4) Gastroesophageal reflux disease: Code(s): K21.9 - Gastro-esophageal reflux disease without esophagitis Status: Acute Assessment and Plan: Stable. Receiving Protonix 40 mg every day. (5) Lupus: Code(s): M32.9 - Systemic lupus erythematosus, unspecified Status: Acute Assessment and Plan: Patient normally takes hydroxychloroquine 200 mg p.o. every other day. This is currently being held in the setting of infection. -ANGIE today creatinine is 1.1 -normal saline started at 100 mL/hour Subjective Date/time seen: 06/06/23 09:14 Interval history: HPI obtained from chart: This is a very pleasant 67-year-old female with hypertension and pre-lupus who presented to the emergency department via private vehicle for evaluation of a left knee wound. The patient provides the following history. She had a left total knee arthroplasty done on 04/10/2023. About a week after her surgery home health came for a visit and change her dressing at which time she noticed a small blister on the knee. The area was redressed and the next week she had her genaro removed in Dr. Blue's office at which time she noticed that the blister had ruptured on the left lateral aspect of the knee which he has been following in the office. On 05/17/2023 she was started on Bactrim and she has been following up frequently for local wound care. She had an appointment yesterday at which time the area was cleaned and dressed with calcium alginate and a Band-Aid. Later that evening she developed aches and she has developed a fever up to 101.4? F today. She has also noticed redness and swelling about the knee and she was directed to come to the ER. Labs today were significant for WBC count of 17.3 and a CRP of 2.9. She was started on vancomycin and Zosyn and she is being admitted in this setting for further antibiotics and orthopedic consultation. At the time my evaluation she has no complaints aside from those as listed above. She denies cold and flu symptoms, vomiting, diarrhea, and dysuria. No known history of multidrug resistant organism or DVT. She is able to bend the knee joint without significant pain. Interval history: 06/06: This is a pleasant 67-year-old female who is seen today in her inpatient room resting in bed. She appears well and in no acute distress. She states that on Sunday she was seen with Dr. Blue 0 for routine wound check visit for which he put a packing in her knee. Then on Sunday, yesterday she spiked a fever around noon of 101.4 and was told by Dr. Blue to come to the ER. On admission her white count was 17 but after the initiation of vanc and Zosyn her white count has improved to 9.6 today. She does have ANGIE with a creatinine of 1.10 for which I started her on normal saline. She had a left lower leg Doppler done to rule out DVT and the results were negative for thrombus. She says that she is feeling much better today since starting the
[2023-06-06] MEDS: SODIUM CHLORIDE 0.9% IV 1,000 ML 100 ML IV CONT (11:43)
[2023-06-06 14:00] VITALS: BP 133/63; PULSE 55; RESP 16; TEMP 36.9; O2SAT 99
--- NOTE | 2023-06-06 17:38 | PM.PNORT ---
Progress Note: A&P Assessment and Plan (1) Cellulitis of left leg: Code(s): L03.116 - Cellulitis of left lower limb Status: Acute Assessment and Plan: POST OP LEFT TKA WITH WOUND DEHISCENCE AND CELLULITIS. SHE HAS NO SIGN OF SEPTIC KNEE JOINT. WBC DECREASE. IMPROVING CELLULITIS. RECOMMEND CONTINUE IV ABX. WE WILL DECIDE ON AN ORAL REGIMEN FOR DISCHARGE. CONTINUE CURRENT REGIMEN. Subjective Subjective Date/Time Seen: 06/06/23 17:38 Interval history: s/p LEFT LEG CELLULITIS FROM INCISION DEHISCENCE. SHE DOES NOT HAVE ANY KNE JOINT PAION OR SIGN OF KNEE JOINT SEPSIS. HER CELLULITIS IS IMPROVING. DENIES FEVER OR CHILLS. Exam Extrem: Other: VSS AFEBRILE DRESSING DRY IN PLACE. WOUND GRANULATING WELL. CELLULITIS DECREASED SIGNIFICANTLY, NO KNEE JOINT EFFUSION. NO PAIN WITH AROM OR PROM OF LEFT KNEE JOINT, CALF SOFT NON TENDER, NEG HOMANS SIGN Objective Data Vital Signs Vital Signs: Vital Signs - 24 hr 06/05/23 18:13 06/05/23 18:33 06/05/23 21:42 Temperature 37.6 C 37.4 C Pulse Rate 55 L 60 73 Respiratory Rate 16 18 18 Blood Pressure 136/45 L 148/61 H 168/47 H Pulse Oximetry 97 100 100 Oxygen Delivery 06/05/23 20:00 06/05/23 23:23 06/06/23 05:30 Temperature 36.5 C Pulse Rate 72 54 L Respiratory Rate 16 Blood Pressure 119/50 L Pulse Oximetry 98 Oxygen Delivery Room Air 06/06/23 09:02 06/06/23 08:00 06/06/23 14:00 Temperature 36.9 C Pulse Rate 55 L 55 L 55 L Respiratory Rate 16 16 Blood Pressure 133/63 Pulse Oximetry 97 97 99 Oxygen Delivery Room Air Room Air Intake/Output Intake/Output: Intake & Output 06/03/23 06/04/23 06/05/23 06/06/23 23:59 23:59 23:59 23:59 Intake Total 1050 1400 Balance 1050 1400 Meds/Results Medications: Active Medications Generic Name Dose Route Start Last Admin Trade Name Freq PRN Reason Stop Dose Admin Acetaminophen 650 mg 06/05/23 17:17 Acetaminophen 325 Mg Tablet PO Q4H PRN Mild Pain (1-3) or Fever Acetaminophen 1,000 mg 06/05/23 22:35 Acetaminophen 500 Mg Tablet PO Q6H PRN Pain Amlodipine Besylate 5 mg 06/05/23 22:50 06/05/23 23:23 Amlodipine Besylate 5 Mg Tablet PO 5 mg HS AMBERLY Administration Azelastine HCl 2 spray 06/05/23 22:35 Azelastine Hcl Nasal 0.1% 137 Mcg/Spr 30 Ml Btl NASAL DAILY PRN Congestion Bupropion HCl 150 mg 06/06/23 09:00 06/06/23 08:29 Bupropion Hcl Xl (24 Hr) 150 Mg Tabcr PO 150 mg QAM AMBERLY Administration Buspirone HCl 10 mg 06/05/23 22:35 06/06/23 08:29 Buspirone Hcl 10 Mg Tablet PO 10 mg Q12HR AMBERLY Administration Calcium Carbonate 500 mg 06/06/23 09:00 06/06/23 08:29 Calcium/Vitamin D 500 Mg Tablet PO 500 mg Q12HR AMBERLY Administration Enoxaparin Sodium 40 mg 06/06/23 09:00 06/06/23 08:30 Enoxaparin 40 Mg/0.4 Ml Syringe SUB-Q Not Given DAILY AMBERLY Fluticasone Propionate 1 spray 06/05/23 22:35 Fluticasone Propionate 0.05% Na Spr 16 Gm Btl (*Bkc) NASAL BID PRN Congestion Hydrochlorothiazide 25 mg 06/06/23 09:00 06/06/23 08:29 Hydrochlorothiazide 25 Mg Tablet PO 25 mg QAM AMBERLY Administration Piperacillin/Tazobactam/Dextrose 3.375 gm in 50 mls @ 100 mls/hr 06/06/23 00:00 06/06/23 11:43 Zosyn 3.375 Gm/Ns 50 Ml IVPB 100 mls/hr Q6HR AMBERLY Administration Vancomycin HCl 1,500 mg in 500 mls @ 250 mls/hr 06/05/23 17:00 06/05/23 19:45 Vancomycin 1,500 Mg/D5w 500 Ml IVPB Infused Q24H AMBERLY Infusion Sodium Chloride 1,000 mls @ 100 mls/hr 06/06/23 09:05 06/06/23 11:43 Normal Saline Iv IV CONT 100 mls/hr .Q10H AMBERLY Administration Lactobacillus Acidophilus 1 tablet 06/06/23 09:00 06/06/23 08:30 Acidophilus/Bulgaricus Chewable Tablet BY MOUTH 1 tablet DAILY AMBERLY Administration Loratadine 10 mg 06/06/23 09:00 06/06/23 08:29 Loratadine 10 Mg Tablet PO 10 mg QAM AMBERLY Administration Losartan Potassium 100 mg 06/06
[2023-06-06] MEDS: POTASSIUM CHLORIDE 20 MEQ PACKET (FOR LIQUID) 40 MEQ PO (18:27)
[2023-06-06 20:34] VITALS: PULSE 83
[2023-06-06] MEDS: METOPROLOL SUCCINATE EXT REL 100 MG TABCR PO (20:34)
[2023-06-06] MEDS: MONTELUKAST SODIUM 10 MG TABLET PO (20:34)
[2023-06-06] MEDS: amLODIPine BESYLATE 5 MG TABLET PO (20:35)
[2023-06-06 22:00] VITALS: BP 148/58; PULSE 55; RESP 16; TEMP 36.6; O2SAT 99
[2023-06-07] MEDS: PIPERACILLN/TAZ 3.375GM/NS50ML 3.375 GM/50 ML BAG IVPB ×2 (05:57→11:59)
[2023-06-07 06:00] VITALS: BP 131/63; PULSE 54; RESP 14; TEMP 36.2; O2SAT 98
[2023-06-07] MEDS: SODIUM CHLORIDE 0.9% IV 1,000 ML 100 ML IV CONT (06:12)
[2023-06-07 06:38] LABS: Basophils Percent Auto 0.6 % (0.2-1.2); Eosinophils Absolute Auto 0.3 K/mm3 (0-0.3); Eosinophils Percent Auto 3.5 % (0-4.4); Hematocrit 32.8 % (37.0-47.0); Hemoglobin 10.6 g/dL (12.0-15.0); Immature Granulocyte Absolute 0.02 K/mm3 (0.00-0.031); Immature Granulocyte Percent A 0.3 % (0-0.5); Lymphocytes Absolute Auto 1.02 K/mm3 (0.9-3.2); Lymphocytes Percent Auto 14.1 % (18.3-44.2); Mean Corpuscular HGB Conc 32.3 g/dl (32-36); Mean Corpuscular Hemoglobin 29.7 pg (26-34); Mean Corpuscular Volume 91.9 fl (80-100); Mean Platelet Volume 10.1 fl (7.4-10.4); Monocytes Absolute Auto 0.6 K/mm3 (0.1-0.6); Monocytes Percent Auto 8.4 % (2.6-8.5); Neutrophils Absolute Auto 5.3 K/mm3 (1.3-6.7); Neutrophils Percent Auto 73.1 % (45.5-73.1); Platelet Count Result 179 k/mm3 (150-375); Red Blood Count 3.57 M/mm3 (4.2-5.4); Red Cell Distribution Width 13.6 % (11.5-14.5); White Blood Count 7.2 K/mm3 (4.5-10.0)
[2023-06-07 07:00] LABS: Alanine Aminotransferase 13 U/L (6-35); Albumin Level 3.5 g/dL (3.5-5.1); Alkaline Phosphatase 62 U/L (38-126); Anion Gap 4 mmol/L (8-16); Aspartate Amino Transferase 20 U/L (14-36); Bilirubin,Total 0.7 mg/dL (0.2-1.3); Blood Urea Nitrogen 12 mg/dL (7-17); Calcium 8.4 mg/dL (8.4-10.2); Carbon Dioxide 30 mmol/L (22-30); Chloride 107 mmol/L (98-107); Estimated CRCL calculation 54 ml/min; Estimated Glomerular Filt Rate 50; Glucose 96 mg/dL (65-110); Magnesium 2.2 mg/dL (1.6-2.3); Potassium 3.9 mmol/L (3.4-5.0); Sodium 141 mmol/L (137-145)
[2023-06-07 07:09] LABS: CRP 15.3 mg/dL (<1.0)
--- NOTE | 2023-06-07 09:08 | PM.IMPN ---
Progress Note: A&P Assessment and Plan (1) Cellulitis of left leg: Code(s): L03.116 - Cellulitis of left lower limb Status: Acute Assessment and Plan: -initially presented with fever of 101.4, leukocytosis of 17, and erythema, edema, warmth to left knee -afebrile last 24 hours, leukocytosis improving -started on vancomycin and Zosyn empirically. White blood cell count has improved to 9 today patient remains afebrile overnight. -Spoke with ID pharmacist who recommends Keflex and Doxycycline for a 10 day regimen with EOT 06/14. CrCl is 54 so patient should be okay with Keflex 500 mg PO Q6 hours. Will transition to oral regimen today. -wound culture ordered -blood cultures pending -wound care per ortho and wound care nurse -appreciate recemily from Orthopedics (2) Postoperative wound infection: Code(s): T81.49XA - Infection following a procedure, other surgical site, initial encounter Status: Acute Assessment and Plan: see treatment for cellulitis of left leg (3) Hypertension: Code(s): I10 - Essential (primary) hypertension Status: Acute Assessment and Plan: Blood pressures reviewed and stable. Blood pressure this morning is 119/50, heart rate 55. Home medications restarted. (4) Gastroesophageal reflux disease: Code(s): K21.9 - Gastro-esophageal reflux disease without esophagitis Status: Acute Assessment and Plan: Stable. Receiving Protonix 40 mg every day. (5) Lupus: Code(s): M32.9 - Systemic lupus erythematosus, unspecified Status: Acute Assessment and Plan: Patient normally takes hydroxychloroquine 200 mg p.o. every other day. This is currently being held in the setting of infection. -Marginal ANGIE. Cr 1.1. -Stopping vanco/zosyn combo -Stopping IVF as patient is tolerating PO intake well. -will write for follow up labs on Sunday, should patient discharge today. Subjective Date/time seen: 06/07/23 09:08 Interval history: HPI obtained from chart: This is a very pleasant 67-year-old female with hypertension and pre-lupus who presented to the emergency department via private vehicle for evaluation of a left knee wound. The patient provides the following history. She had a left total knee arthroplasty done on 04/10/2023. About a week after her surgery home health came for a visit and change her dressing at which time she noticed a small blister on the knee. The area was redressed and the next week she had her genaro removed in Dr. Blue's office at which time she noticed that the blister had ruptured on the left lateral aspect of the knee which he has been following in the office. On 05/17/2023 she was started on Bactrim and she has been following up frequently for local wound care. She had an appointment yesterday at which time the area was cleaned and dressed with calcium alginate and a Band-Aid. Later that evening she developed aches and she has developed a fever up to 101.4? F today. She has also noticed redness and swelling about the knee and she was directed to come to the ER. Labs today were significant for WBC count of 17.3 and a CRP of 2.9. She was started on vancomycin and Zosyn and she is being admitted in this setting for further antibiotics and orthopedic consultation. At the time my evaluation she has no complaints aside from those as listed above. She denies cold and flu symptoms, vomiting, diarrhea, and dysuria. No known history of multidrug resistant organism or DVT. She is able to bend the knee joint without significant pain. Interval history: 06/06: This is a pleasant 67-year-old female who is seen today in her inpatient room resting in bed. She appears well and in no acute distress. She states that on Sunday she was seen with Dr. Blue 0 for routine wound check visit for which he put a packing in her knee. Then on Sunday, yesterday she spiked a fever around noon of 101.4 and was told by Dr. Blue to come to the ER.
[2023-06-07] MEDS: LORATADINE 10 MG TABLET PO (09:47)
[2023-06-07] MEDS: ACIDOPHILUS/BULGARICUS CHEWABLE TABLET 1 TABLET BY MOUTH (09:47)
[2023-06-07] MEDS: MULTIVITAMINS THERAPEUTIC TAB (*BKC) 1 TABLET PO (09:49)
[2023-06-07] MEDS: busPIRone HCL 10 MG TABLET PO ×2 (09:49→21:35)
[2023-06-07] MEDS: PANTOPRAZOLE 40 MG TABLET PO (09:49)
[2023-06-07] MEDS: buPROPion HCL XL (24 HR) 150 MG TABCR PO (09:49)
[2023-06-07] MEDS: POTASSIUM CHLORIDE 20 MEQ PACKET (FOR LIQUID) 40 MEQ PO (09:50)
[2023-06-07] MEDS: LOSARTAN POTASSIUM 100 MG TABLET PO (09:50)
[2023-06-07] MEDS: hydroCHLOROthiazide 25 MG TABLET PO (09:50)
[2023-06-07] MEDS: DOXYCYCLINE HYCLATE 100 MG TABLET PO ×2 (12:32→21:35)
[2023-06-07 13:42] LABS: CRP 14.4 mg/dL (<1.0)
--- NOTE | 2023-06-07 13:48 | PM.DS ---
DS: Admitting Diagnosis Discharge Date June 07 Admitting Diagnosis Cellulitis of left leg DS: Discharge Diagnosis Discharge Diagnosis (1) Cellulitis of left leg: Code(s): L03.116 - Cellulitis of left lower limb Status: Acute Assessment and Plan: -initially presented with fever of 101.4, leukocytosis of 17, and erythema, edema, warmth to left knee -afebrile last 24 hours, leukocytosis improving -started on vancomycin and Zosyn empirically. White blood cell count has improved to 9 today patient remains afebrile overnight. -Spoke with ID pharmacist who recommends Keflex and Doxycycline for a 10 day regimen with EOT 06/14. CrCl is 54 so patient should be okay with Keflex 500 mg PO Q6 hours. Will transition to oral regimen today. -wound culture ordered -blood cultures pending -wound care per ortho and wound care nurse -appreciate recemily from Orthopedics (2) Postoperative wound infection: Code(s): T81.49XA - Infection following a procedure, other surgical site, initial encounter Status: Acute Assessment and Plan: see treatment for cellulitis of left leg (3) Hypertension: Code(s): I10 - Essential (primary) hypertension Status: Acute Assessment and Plan: Blood pressures reviewed and stable. Blood pressure this morning is 119/50, heart rate 55. Home medications restarted. (4) Gastroesophageal reflux disease: Code(s): K21.9 - Gastro-esophageal reflux disease without esophagitis Status: Acute Assessment and Plan: Stable. Receiving Protonix 40 mg every day. (5) Lupus: Code(s): M32.9 - Systemic lupus erythematosus, unspecified Status: Acute Assessment and Plan: Patient normally takes hydroxychloroquine 200 mg p.o. every other day. This is currently being held in the setting of infection. -Marginal ANGIE. Cr 1.1. -Stopping vanco/zosyn combo -Stopping IVF as patient is tolerating PO intake well. -will write for follow up labs on Sunday, should patient discharge today. Plan (1) Cellulitis of left leg: ?Code(s): L03.116 - Cellulitis of left lower limb ?Status:?Acute ?Assessment and Plan: -initially presented with fever of 101.4, leukocytosis of 17, and erythema, edema, warmth to left knee -afebrile last 24 hours, leukocytosis improving -started on vancomycin and Zosyn empirically.? White blood cell count has improved to 9 today patient remains afebrile overnight. -Spoke with ID pharmacist who recommends Keflex and Doxycycline for a 10 day regimen with EOT 06/14. CrCl is 54 so patient should be okay with Keflex 500 mg PO Q6 hours. Will transition to oral regimen today. -blood cultures pending -wound care per ortho and wound care nurse -appreciate recs from Orthopedics (2) Postoperative wound infection: ?Code(s): T81.49XA - Infection following a procedure, other surgical site, initial encounter ?Status:?Acute ?Assessment and Plan: see treatment for cellulitis of left leg (3) Hypertension: ?Code(s): I10 - Essential (primary) hypertension ?Status:?Acute ?Assessment and Plan: Blood pressures reviewed and stable.? Blood pressure this morning is 119/50, heart rate 55.? Home medications restarted. (4) Gastroesophageal reflux disease: ?Code(s): K21.9 - Gastro-esophageal reflux disease without esophagitis ?Status:?Acute ?Assessment and Plan: Stable.? Receiving Protonix 40 mg every day. (5) Lupus: ?Code(s): M32.9 - Systemic lupus erythematosus, unspecified ?Status:?Acute ?Assessment and Plan: Patient normally takes hydroxychloroquine 200 mg p.o. every other day.? This is currently being held in the setting of infection. -CRP elevated even though patient appears clinically better. However we stopped her hydroxychloroquine on admission so this is likely the cause. Can restart hydroxychloroquine at discharge. -Marginal ANGIE. Cr 1.1. -Stopping vanco/zosyn combo -Stopping
[2023-06-07 14:00] VITALS: BP 138/71; PULSE 56; RESP 16; TEMP 36.8; O2SAT 99
--- NOTE | 2023-06-07 16:49 | PM.PNORT ---
Progress Note: A&P Assessment and Plan (1) Cellulitis of left leg: Code(s): L03.116 - Cellulitis of left lower limb Status: Acute Assessment and Plan: CELLULIOTIS LEFT LEG IMPROVING. SHE WILL START A PO REGIMEN FOR ANTIBIOTIC COVERAGE. WE WILL MONITOR HER WOUND ON A WEEKLY BASIS FOR WORSENING CELLULITIS. RECOMMEND CRP IN THE AM THEN DC IF SHE CONTINUES TO IMPROVE HER CELLULITIS. SHE WILL F/U NEXT WEEK IN MY OFFICE/WOUND CENTER Subjective Subjective Date/Time Seen: 06/07/23 16:49 Interval history: POST HOSPITAL DAY 3 DOING WELL. IMPROVING. SHE CONTINUES TO SHOW NO SIGN OF KNEE JOINT SEPSIS. CELLULITIS CONTINUES TO IMPROVE. CRP INCREASE MOST LIKELY DUE TO HYDROXYCHLOROQUINE DISCONTINUATION. WBC DECREASED WELL. NO CALF PAIN. Exam Extrem: Other: VSS AFEBRILE DRESSING CHANGE TODAY, WOUND GRANULATING WELL, MINIMAL ERYTHEMA, CELLULITIS DECREASED., CALF SOFT NON TENDER NEG HOMANS SIGN Objective Data Vital Signs Vital Signs: Vital Signs - 24 hr 06/06/23 19:55 06/06/23 20:34 06/06/23 22:00 Temperature 36.6 C Pulse Rate 83 55 L Respiratory Rate 16 Blood Pressure 148/58 H Pulse Oximetry 99 Oxygen Delivery Room Air 06/07/23 06:00 06/07/23 09:49 06/07/23 14:00 Temperature 36.2 C L 36.8 C Pulse Rate 54 L 56 L Respiratory Rate 14 16 Blood Pressure 131/63 138/71 Pulse Oximetry 98 99 Oxygen Delivery Room Air Intake/Output Intake/Output: Intake & Output 06/04/23 06/05/23 06/06/23 06/07/23 23:59 23:59 23:59 23:59 Intake Total 1050 2980 1460 Balance 1050 2980 1460 Meds/Results Medications: Active Medications Generic Name Dose Route Start Last Admin Trade Name Freq PRN Reason Stop Dose Admin Acetaminophen 650 mg 06/05/23 17:17 Acetaminophen 325 Mg Tablet PO Q4H PRN Mild Pain (1-3) or Fever Acetaminophen 1,000 mg 06/05/23 22:35 Acetaminophen 500 Mg Tablet PO Q6H PRN Pain Amlodipine Besylate 5 mg 06/05/23 22:50 06/06/23 20:35 Amlodipine Besylate 5 Mg Tablet PO 5 mg HS AMBERLY Administration Azelastine HCl 2 spray 06/05/23 22:35 Azelastine Hcl Nasal 0.1% 137 Mcg/Spr 30 Ml Btl NASAL DAILY PRN Congestion Bupropion HCl 150 mg 06/06/23 09:00 06/07/23 09:49 Bupropion Hcl Xl (24 Hr) 150 Mg Tabcr PO 150 mg QAM AMBERLY Administration Buspirone HCl 10 mg 06/05/23 22:35 06/07/23 09:49 Buspirone Hcl 10 Mg Tablet PO 10 mg Q12HR AMBERLY Administration Calcium Carbonate 500 mg 06/06/23 09:00 06/07/23 09:49 Calcium/Vitamin D 500 Mg Tablet PO 500 mg Q12HR AMBERLY Administration Cephalexin HCl 500 mg 06/07/23 12:00 06/07/23 12:31 Cephalexin 500 Mg Capsule PO 06/18/23 22:00 Not Given Q6HR AMBERLY Doxycycline Hyclate 100 mg 06/07/23 12:00 06/07/23 12:32 Doxycycline Hyclate 100 Mg Tablet PO 06/18/23 22:00 100 mg Q12HR AMBERLY Administration Enoxaparin Sodium 40 mg 06/06/23 09:00 06/07/23 09:48 Enoxaparin 40 Mg/0.4 Ml Syringe SUB-Q Not Given DAILY AMBERLY Fluticasone Propionate 1 spray 06/05/23 22:35 Fluticasone Propionate 0.05% Na Spr 16 Gm Btl (*Bkc) NASAL BID PRN Congestion Hydrochlorothiazide 25 mg 06/06/23 09:00 06/07/23 09:50 Hydrochlorothiazide 25 Mg Tablet PO 25 mg QAM AMBERLY Administration Lactobacillus Acidophilus 1 tablet 06/06/23 09:00 06/07/23 09:47 Acidophilus/Bulgaricus Chewable Tablet BY MOUTH 1 tablet DAILY AMBERLY Administration Loratadine 10 mg 06/06/23 09:00 06/07/23 09:47 Loratadine 10 Mg Tablet PO 10 mg QAM AMBERLY Administration Losartan Potassium 100 mg 06/06/23 09:00 06/07/23 09:50 Losartan Potassium 100 Mg Tablet PO 100 mg DAILY AMBERLY Administration Metoprolol Succinate 100 mg 06/05/23 22:50 06/06/23 20:34 Metoprolol Succinate Ext Rel 100 Mg Tabcr PO 100 mg HS AMBERLY Administration Montelukast Sodium 10 mg 06/05/23 22:50 06/06/23 20:34 Montelukast Sodium 10 Mg Tablet PO 10 m
[2023-06-07] MEDS: CEPHALEXIN 500 MG CAPSULE PO ×2 (17:32→23:13)
--- NOTE | 2023-06-07 18:43 | PC.NURSE ---
Pt had packing changed by Dr. Blue. Pt tolerated well. Pt being monitored one more night due to lab values. Pt has participated and contributed in plan of care. Pt was switched to PO antibiotics and is tolerating well. Pt plans to discharge tomorrow, pending lab values. Will continue to monitor pt.
[2023-06-07 20:00] VITALS: PULSE 58; RESP 14; O2SAT 100
[2023-06-07 21:14] VITALS: BP 152/78; PULSE 58; RESP 14; TEMP 36.3; O2SAT 100
[2023-06-07] MEDS: MONTELUKAST SODIUM 10 MG TABLET PO (21:35)
[2023-06-07] MEDS: METOPROLOL SUCCINATE EXT REL 100 MG TABCR PO (21:35)
[2023-06-07] MEDS: amLODIPine BESYLATE 5 MG TABLET PO (21:35)
[2023-06-08] MEDS: CEPHALEXIN 500 MG CAPSULE PO (05:42)
[2023-06-08 06:00] VITALS: BP 140/60; PULSE 54; RESP 16; TEMP 36.4; O2SAT 94
[2023-06-08 06:12] LABS: Basophils Absolute Auto 0.1 K/mm3 (0.0-0.1); Basophils Percent Auto 0.8 % (0.2-1.2); Eosinophils Absolute Auto 0.3 K/mm3 (0-0.3); Eosinophils Percent Auto 3.8 % (0-4.4); Hematocrit 35.7 % (37.0-47.0); Hemoglobin 11.6 g/dL (12.0-15.0); Immature Granulocyte Absolute 0.03 K/mm3 (0.00-0.031); Immature Granulocyte Percent A 0.4 % (0-0.5); Lymphocytes Absolute Auto 1.16 K/mm3 (0.9-3.2); Lymphocytes Percent Auto 16.2 % (18.3-44.2); Mean Corpuscular HGB Conc 32.5 g/dl (32-36); Mean Corpuscular Hemoglobin 30.3 pg (26-34); Mean Corpuscular Volume 93.2 fl (80-100); Mean Platelet Volume 9.9 fl (7.4-10.4); Monocytes Absolute Auto 0.5 K/mm3 (0.1-0.6); Monocytes Percent Auto 7.1 % (2.6-8.5); Neutrophils Absolute Auto 5.1 K/mm3 (1.3-6.7); Neutrophils Percent Auto 71.7 % (45.5-73.1); Platelet Count Result 212 k/mm3 (150-375); Red Blood Count 3.83 M/mm3 (4.2-5.4); Red Cell Distribution Width 13.7 % (11.5-14.5); White Blood Count 7.1 K/mm3 (4.5-10.0)
[2023-06-08 06:26] LABS: Alanine Aminotransferase 13 U/L (6-35); Albumin Level 3.9 g/dL (3.5-5.1); Alkaline Phosphatase 57 U/L (38-126); Anion Gap 4 mmol/L (8-16); Aspartate Amino Transferase 22 U/L (14-36); Bilirubin,Total 0.6 mg/dL (0.2-1.3); Blood Urea Nitrogen 12 mg/dL (7-17); CRP 7.1 mg/dL (<1.0); Calcium 8.9 mg/dL (8.4-10.2); Carbon Dioxide 28 mmol/L (22-30); Chloride 105 mmol/L (98-107); Estimated CRCL calculation 60 ml/min; Estimated Glomerular Filt Rate 55; Glucose 89 mg/dL (65-110); Magnesium 2.1 mg/dL (1.6-2.3); Sodium 137 mmol/L (137-145)
[2023-06-08 08:00] VITALS: PULSE 54; RESP 16; O2SAT 94
[2023-06-08] MEDS: ACIDOPHILUS/BULGARICUS CHEWABLE TABLET 1 TABLET BY MOUTH (08:45)
[2023-06-08] MEDS: busPIRone HCL 10 MG TABLET PO (08:46)
[2023-06-08] MEDS: buPROPion HCL XL (24 HR) 150 MG TABCR PO (08:46)
[2023-06-08] MEDS: LOSARTAN POTASSIUM 100 MG TABLET PO (08:46)
[2023-06-08] MEDS: DOXYCYCLINE HYCLATE 100 MG TABLET PO (08:46)
[2023-06-08] MEDS: hydroCHLOROthiazide 25 MG TABLET PO (08:46)
[2023-06-08] MEDS: LORATADINE 10 MG TABLET PO (08:46)
[2023-06-08] MEDS: POTASSIUM CHLORIDE 20 MEQ PACKET (FOR LIQUID) 40 MEQ PO (08:47)
[2023-06-08] MEDS: PANTOPRAZOLE 40 MG TABLET PO (08:47)
[2023-06-08] MEDS: MULTIVITAMINS THERAPEUTIC TAB (*BKC) 1 TABLET PO (08:47)
== END 2023-06-08 11:54 | disposition home or self-care (01) | DRG 863 ==
LOC: ANHED 16:18 → ANH3MEDSUR 19:58
PROVIDERS: Orthopaedic Surgery; Physician Assistant; Admitting Provider Family Medicine; Emergency Provider Emergency Medicine; PCP Internal Medicine; Visit Provider Nurse Practitioner Acute Care
DX: T81.41XA Infection following a procedure, superficial incisional surgical site, initial encounter (principal); L03.116 Cellulitis of left lower limb; I10 Essential (primary) hypertension; K21.9 Gastro-esophageal reflux disease without esophagitis; M32.9 Systemic lupus erythematosus, unspecified; F41.9 Anxiety disorder, unspecified; M19.90 Unspecified osteoarthritis, unspecified site; Z96.653 Presence of artificial knee joint, bilateral; Z86.16 Personal history of COVID-19; Z90.49 Acquired absence of other specified parts of digestive tract
CPT/HCPCS: 36415; 73562; 80048; 80053; 83735; 85025; 85652; 86140; 87040; 93971; 96361; 96365; 96366; 96367; 99285; A9270; G0378; J2543; J3370; J7030

== ENCOUNTER 2023-07-12 07:05 | Outpatient (RCR) | payer MEDICARE, SELFPAY ==
[2023-06-14 13:25] VITALS: BMI 38.3
== END 2023-08-30 13:41 | disposition home or self-care (01) ==
LOC: ANHWOC 07:05
PROVIDERS: PCP Internal Medicine; Visit Provider Orthopaedic Surgery
DX: S81.009D Unspecified open wound, unspecified knee, subsequent encounter (principal); Z96.653 Presence of artificial knee joint, bilateral
CPT/HCPCS: 99212; 99213; G0463

== ENCOUNTER → 2023-12-18 13:47 | Outpatient (CLI) | payer MEDICARE, SELFPAY ==
--- NOTE | ~2023-12-18 | MM_ITS ---
EXAMINATION: MM screening [facility] BI w remy HISTORY: Screening mammogram TECHNIQUE: Craniocaudal and mediolateral oblique 3-D tomosynthesis images were obtained and synthetic 2-D images were generated. CAD analysis was submitted and interpreted. COMPARISON: 10/14/2022, 06/15/2021, 06/07/2020 BREAST PARENCHYMAL COMPOSITION: The breasts are almost entirely fatty. FINDINGS: No suspicious mass, calcification, or architectural distortion are identified in either millie ast to suggest malignancy. There has been no suspicious interval change. IMPRESSION: 1. No mammographic evidence of malignancy. 2. Recommend routine screening mammography in one year. BI-RADS Category 1: Negative Reviewed, dictated and finalized at location A. [employer]
== END ==
PROVIDERS: PCP Internal Medicine; Visit Provider Internal Medicine
DX: Z12.31 Encounter for screening mammogram for malignant neoplasm of breast (principal)
CPT/HCPCS: 77063; 77067

== ENCOUNTER → 2024-01-15 13:42 | Outpatient (CLI) | payer MEDICARE, SELFPAY ==
--- NOTE | ~2024-01-15 | DEXA_ITS ---
Bone Density Report Name: JANINA ELIZALDE Age: 68 Sex: Female Ethnicity: White Date of : 1955 Indication: postmenopausal; screening for osteoporosis; Referring Provider: YUE, CHANDRIKA Olivarez Study: Bone densitometry was performed. Exam Date: January 15, 2024 Accession number: [id number] Bone Density: Region BMD T-score Z-score Classification AP Spine (L1, L2, L4) 1.184 1.4 3.3 Normal Femoral Neck (Left) 0.865 0.1 1.8 Normal Total Hip (Left) 0.921 -0.2 1.2 Normal Femoral Neck (Right) 0.843 -0.1 1.6 Normal Total Hip (Right) 0.896 -0.4 1.0 Normal Total Hip Mean 0.909 -0.3 1.1 Normal World Health Organization criteria for BMD impression classify patients as: Normal (T-score at or above -1.0), Osteopenia (T-score between -1.0 and -2.5), or Osteoporosis (T-score at or below -2.5). 10-year Fracture Risk: FRAX not reported because: All T-scores for Spine Total, Hip Total, Femoral Neck at or above -1.0 Previous Exams: Region Exam Age BMD T-score BMD Change BMD Change Date g/cm2 vs Baseline vs Previous AP Spine(L1, L2, L4) 01/15/2024 68 1.184 1.4 -0.158* -0.081* 06/15/2021 65 1.264 2.1 -0.077* 0.083* 03/17/2019 63 1.181 1.3 -0.160* 0.020 12/23/2012 57 1.162 1.2 -0.180* 0.021 11/10/2009 54 1.140 1.0 -0.201 -0.201 10/19/2006 51 1.341 2.8 Total Hip(Left) 01/15/2024 68 0.921 -0.2 -0.115* -0.053* 06/15/2021 65 0.974 0.3 -0.062* 0.034* 03/17/2019 63 0.939 0.0 -0.097* -0.040* 12/23/2012 57 0.979 0.3 -0.057* 0.067 11/10/2009 54 0.912 -0.2 -0.124 -0.124 10/19/2006 51 1.036 0.8 Total Hip(Right) 01/15/2024 68 0.896 -0.4 -0.142* -0.059* 06/15/2021 65 0.955 0.1 -0.083* -0.025 03/17/2019 63 0.981 0.3 -0.058* -0.021 12/23/2012 57 1.001 0.5 -0.037* 0.084 11/10/2009 54 0.918 -0.2 -0.121 -0.121 10/19/2006 51 1.038 0.8 *Denotes significance at 95% confidence level, LSC for AP Spine = 0.022 g/cm2, LSC for Total Hip = 0.027 g/cm2 Clinical Information Provided by Patient: Has used the following medications: Calcium, MTV Patient maximum height was 66.5 Menopause Age: 51 No regular weight bearing exercise Drinks caffeinated beverages Onset of menses at age 13 Number of ch
== END ==
PROVIDERS: PCP Internal Medicine; Visit Provider Internal Medicine
DX: Z12.31 Encounter for screening mammogram for malignant neoplasm of breast (principal); Z78.0 Asymptomatic menopausal state
CPT/HCPCS: 77080

== ENCOUNTER 2024-12-24 13:39 | Outpatient (CLI) | payer MEDICARE, SELFPAY ==
--- NOTE | ~2024-12-24 | MM_ITS ---
EXAMINATION: MM screening denny BI w remy HISTORY: Screening TECHNIQUE: Craniocaudal and mediolateral oblique 3-D tomosynthesis images were obtained and synthetic 2-D images were generated. CAD analysis was submitted and interpreted. COMPARISON: Comparison to multiple prior studies sequentially, with oldest reviewed study dated 05/2018. BREAST PARENCHYMAL COMPOSITION: There are scattered areas of fibroglandular density. FINDINGS: There is no evidence of suspicious mass, calcification, or architectural distortion to sugg est malignancy in either breast. There has been no suspicious interval change. IMPRESSION: 1. No mammographic evidence of malignancy. 2. Recommend routine screening mammography in one year. 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
== END 2024-12-24 13:40 | disposition home or self-care (01) ==
LOC: MICIMG 13:40
PROVIDERS: PCP Internal Medicine; Visit Provider Internal Medicine
DX: Z12.31 Encounter for screening mammogram for malignant neoplasm of breast (principal)
CPT/HCPCS: 77063; 77067

== ENCOUNTER 2025-10-12 01:19 | Day surgery (SDC) | payer MEDICARE, SELFPAY ==
[2025-09-29 13:36] VITALS: BMI 38.7
--- OUTSIDE RECORDS SUMMARY | 2025-10-12 01:24 | XMS_ITS | Data Portability ---
Author Organization [facility]ind[facility] An Address [address] [place] [address] Care Team Providers Care Busperson Name Role Phone ASHLEY MCLEAN Primary Care Provider [facility] RHEUAMTOLOGY Event Mgr AKHIL VAZQUEZ [employer] Worker KATYA ERICKSON Orthopedist Assessment Encounter Date Assessment Date Assessment LastModified by Organization Details LastModified Time 03/02/2021 03/02/2021 Has her second covid shot later this week. did have coronavirus with fever; made apparent full recovery. [email or web address] Not available 03/06/2021 15:25:27 Plan of Treatment Reminders Order Date Submit Date Provider Last Modified By Organization Details Last Modified Time Details Appointments None recorded. Lab SARS CoV 2 RNA (COVID-19) , QL, origination specialist-PCR, respirator y specimen - [place] 330 2019 020 [facility] (Lab), [address] [place], [address], 0 16:17:17 Referral foxing closer referral 2020 021 HEBER Barrow MD, [address], [address], [place], [address], 1 11:33:29 Procedures None recorded. Surgeries None recorded. Imaging XR, knee, 4 or more view 2020 021 [facility] (Imaging), [address] [place] [address] [address], [place], [address], 1 17:32:36 Medication Orders fluticason e propionate 50 mcg/actuat ion nasal spray,susp ension 2020 021 HEBER [facility] [address], [address], [place], [address], 1 10:25:50 metoprolol succinate ER 100 mg tablet,ext ended release 24 hr 2019 020 INTERFACE [facility] [address], [address], [place], [address], 0 12:44:05 losartan 100 mg-hydroch lorothiazi de 25 mg tablet 2019 020 INTERFACE [facility] [address], [address] , [place], [address], 0 12:44:08 amlodipine 10 mg tablet 2019 020 [facility] [address], [address] , [place], [address], 0 12:44:06 buspirone 10 mg tablet 2019 020 [email or web address] [facility] [address], [address] , [place], [address], 0 13:03:54 Patient TargetsNo targets recorded. Patient Instructions Encounter Date Encounter Id Patient Instructions Last Modified By Organization Details Last Modified Time 10/14/2020 [id number] Reviewed the following recommendations: -Stay home and separate from others as much as possible. -Monitor your symptoms and seek medical attention for trouble breathing, persistent chest pain, confusion, or bluish lips or face. -Wear a mask if you must be around other people. -Wash your hands often for 20 seconds with soap and water and clean high-touch surfaces daily -You may discontinue home isolation if your symptoms are improving, it has been 10 days since symptoms started, and you have been fever free for at least 3 days. [email or web address] Not available 10/14/2020 15:15:19 03/02/2021 [id number] allergies: care instructions [email or web address] Not available 03/02/2021 10:25:43 managing your allergies: care instructions [email or web address] Not available 03/02/2021 10:25:43 learning about high blood pressure [email or web address] Not available 03/03/2021 00:06:32 05/02/2021 [id number] allergies: care instructions [email or web address] Not available 05/02/2021 10:35:59 managing your allergies: care instructions [email or web address] Not available 05/02/2021 10:35:59 Reason for Referral Playground Official Referral for [facility] Referring Physician: Ashley Mclean, Family Medicine, Encounter Date: 05/02/2021 Results Created Date Observation Date Name Description Value Unit Range Abnormal Flag Note LastModifiedBy Organization Detail LastModifiedTime 08/16/20 20 08/16/2020 XR, chest No observ ation record ed. [email or web address] Not Available 07/28 21:43:28 08/26/20 20 08/24/2020 CT, chest , w/o contr ast No observ ation record ed. HEBER Not Available 2019 22:07:51 10/26/20 20 10/26/2020 US, echoc ardio gram No observ ation record ed. [email or web address] [place] [id number] [facility] [address], [place], [address], 03/06/2021 15:29:49 05/02/20 21 05/02/2021 XR, knee, 4 or more view No observ ation record ed. [place] [id number] [facility] [address], [place], [address], 05/10/2021 15:11:52 06/16/20 21 06/15/2021 MAMMO , scree karmen, bilat eral No observ ation record ed. [facility] [address], [place], [address], 06/23/2021 15:19:40 06/16/20 21 06/15/2021 MAMMO , scree karmen, bilat eral No observ ation record ed. [address] [facility] [address], [place], [address], 06/23/2021 15:21:01 06/16/20 21 06/15/2021 bone densi ty No observ ation record ed. [address] [facility] [address], [place], [address], 06/23/2021 15:20:46 06/28/20 21 06/27/2021 MRI, knee, w/o contr ast No observ ation record ed. [facility] [address], [place], [address], 08/19/2021 12:38:53 08/03/20 21 08/03/2021 MRI, knee, w/o contr ast No observ ation record ed. [address], [place], [address], 08/19/2021 12:39:52 08/03/20 21 08/03/2021 MRI, knee, w/o contr ast No observ ation record ed. [address], [place], [address], 08/19/2021 13:05:12 Result Notes None recorded. Problems Name Problem SNOMED Code Status Onset Date Resolution Date Notes Provider Name and Address Organization Details Recorded Time Arthritis 1827061 Active 2019 LUDMILA Baig, [place] - [facility] 0 14:39:09 Allergic disposition 134586728 Active 2019 Camila Brito [place] null, [place] - [facility] 0 14:39:22 Essential hypertension 40874820 Active 2019 Camila Brito [place] null, [place] - [facility] 0 14:39:34 Gastroesophage al reflux disease 650520122 Active 2019 Camila Brito MA null, [place] - [facility] 0 14:39:46 Problem Notes None recorded. Procedures Surgical History Date Name Laterality Status Provider Name and Address Organization Details Recorded Time 9 Date of Last Mammogram completed Camila Brito MA [facility] 01/26/2020 14:41:12 9 Date of Last Pap Smear completed Camila Brito MA [facility] 01/26/2020 14:41:07 Remove tonsils and adenoids completed Camila Brito MA [facility] 01/26/2020 14:44:55 Hernia repair w/mesh completed Camila Brito MA [facility] 01/26/2020 14:45:49 hernia repair completed Camila Brito MA [facility] 01/26/2020 14:45:40 colonoscopy completed Camila Brito MA [facility] 01/26/2020 14:48:08 Imaging Results None recorded. Procedure Notes None recorded. Medical Equipment None Reported. Allergies No known drug allergies Medications Name Sig Start Date Stop Date Status Note LastModified by Organization Details LastModified Time metoprolol succinate ER 50 mg tablet,exte nded release 24 hr Take 1 tablet every day by oral route at bedtime. 03/02 completed Not Available Not Available Not Available metoprolol succinate ER 100 mg tablet,exte nded release 24 hr Take 1 tablet by mouth once daily 2020 active Not Available Not Available Not Avai lable ciprofloxac in 500 mg tablet TAKE 1 TABLET BY MOUTH TWICE DAILY FOR 5 DAYS 01/24 completed Not Available Not Available Not Available omeprazole 40 mg capsule,del ayed release 2020 active Not Available Not Available Not Avai lable nystatin-tr iamcinolone 100,000 unit/gram-0 .1 % topical ointment APPLY OINTMENT TOPICALLY TO AFFECTED AREA ONCE DAILY ONLY NEEDED active Not Available Not Available No t Available losartan 100 mg-hydrochl orothiazide 25 mg tablet TAKE 1 TABLET BY MOUTH ONCE DAILY IN THE MORNING 2020 active Not Available Not Available Not Avai lable amlodipine 10 mg tablet TAKE 1 TABLET BY MOUTH ONCE DAILY AT BEDTIME active Not Available Not Available No t Available buspirone 10 mg tablet TAKE 1 TABLET BY MOUTH TWICE DAILY active Not Available Not Available No t Available montelukast 10 mg tablet TAKE 1 TABLET BY MOUTH ONCE DAILY active Not Available Not Available No t Available azelastine 137 mcg (0.1 %) nasal spray Lyles 2 sprays twice a day by intranasa l route. 2019 active Not Available Not Available Not Avai lable hydroxychlo roquine 200 mg tablet TAKE 1 TABLET BY MOUTH ONCE DAILY active Not Available Not Available No t Available fluticasone propionate 50 mcg/actuati on nasal spray,suspe nsion USE 1 SPRAY(S) IN EACH NOSTRIL ONCE DAILY active Not Available Not Available No t Available hydralazine Given at hospital active Not Available Not Available No t Available Vitals Date Recorded Body height Body temperature Body mass index (BMI) Body weight Oxygen saturation Oxygen saturation in Arterial blood by Pulse oximetry Heart rate Systolic And Diastolic Provider Name and Address Organization Details Last Updated DateTime 1 167.64 cm 97.3 [degF] 43.4 kg/m2 878632. 35 g 98 % 98 % 49 /min 118/64 mm[Hg] Camila Brito MA [facility] 1 10:05:34 Date Recorded Body height Body mass index (BMI) Body weight Heart rate Oxygen saturation Oxygen saturation in Arterial blood by Pulse oximetry Body temperature Systolic And Diastolic Provider Name and Address Organization Details Last Updated DateTime 1 167.64 cm 43.5 kg/m2 115489. 75 g 52 /min 98 % 98 % 98.6 [degF] 118/68 mm[Hg] Nicolas Malin MA [facility] 1 10:15:19 Date Recorded Body height Body mass index (BMI) Body weight Oxygen saturation Oxygen saturation in Arterial blood by Pulse oximetry Heart rate Body temperature Systolic And Diastolic Systolic And Diastolic Provider Name and Address Organization Details Last Updated DateTime 0 167.64 cm 43.4 kg/m2 443572. 05 g 98 % 98 % 52 /min 96.8 [degF] 128/88 mm[Hg] 132/82 mm[Hg] Camila Brito MA [facility] 0 12:26:24 Date Recorded Body height Systolic And Diastolic Provider Name and Address Organization Details Last Updated DateTime 09/01/2020 167.64 cm 120/78 mm[Hg] Camila LUDMILA Brito [facility] 09/01/2020 12:27:12 Social History Question Answer Notes LastModified by Organizat ion Details LastModified Time Tobacco Smoking Status Never Smoker Camila LUDMILA Brito null, [facility] 01/26/2020 14:43:01 What Is Your Level Of Caffeine Consumption? Heavy Information not available 01/26/2020 How Much Tobacco Do You Chew? None Information not available 01/26/2020 In The 14 Days Before Symptom Onset, Have You Had Close Contact With A Laboratory-confirm ed COVID-19 While That Case Was Ill? No Information n ot available 05/02/2021 In The 14 Days Before Symptom Onset, Have You Had Close Contact With A Person Who Is Under Investigation For COVID-19 While That Person Was Ill? No Information not available 05/02/2021 Have You Been To An Area Known To Be High Risk For COVID-19? No Information not available 03/02/2021 What Type Of Diet Are You Following? REGULAR Information n ot available 01/26/2020 Which Illicit Or Recreational Drugs Have You Used? None Information not available 01/26/2020 Education 12 Information no t available 01/26/2020 Hard Of Hearing Or Deaf In One Or Both Ears? No Information not available 01/26/2020 Legally Blind In One Or Both Eyes? No Information no t available 01/26/2020 Live Alone Or With Others? With Others Information not available 01/26/2020 What Was The Date Of Your Most Recent Tobacco Screening? 05/02/2021 Information not available 05/02/2021 How Many Children Do You Have? 2 Information not available 01/26/2020 What Is Your Relationship Status? Information not available 03/02/2021 Smoke Alarm In Home Yes Information not available 01/26/2020 Do You Have Smoke And Carbon Monoxide Detectors In Your Home? Yes Information not available 03/02/2021 Are You Passively Exposed To Smoke? No Information no t available 03/02/2021 How Much Tobacco Do You Smoke? No Information not available 01/26/2020 General Stress Level Medium Information not available 01/26/2020 Has Tobacco Cessation Counseling Been Provided? No Information not available 03/02/2021 On What Date Was Tobacco Cessation Counseling Provided? 05/12/2020 Information not available 05/12/2020 How Many Years Have You Smoked Tobacco? 0 Information not available 01/26/2020 Sex: Unknown Functional Status Question Answer Note LastModified by Organizat ion Details LastModified Time Do you use any illicit or recreational drugs? No Information not available 03/02/2021 Do you or have you ever used any other forms of tobacco or nicotine? No Information not available 03/02/2021 What is your level of alcohol consumption? Occasional Information not available 01/26/2020 Do you or have you ever used smokeless tobacco? Never used smokeless tobacco Information not available 01/26/2020 Are you currently employed? No Information not available 01/26/2020 Are you able to care for yourself independently? Yes Information not available 01/26/2020 What is your occupation? Unemployed Information not available 01/26/2020 Do you or have you ever used e-cigarettes or vape? Never used electronic cigarettes Information not available 01/26/2020 What is your exercise level? Occasional Information not available 08/18/2020 Mental Status None recorded. Family History Relationship Description Onset Age of this Age Resolved Age Notes LastModified by Organization Details LastModified Time Mother Family history of malignant neoplasm Lung [email or web address] Not available 01/25 14:42:33 Mother Chronic obstructive pulmonary disease 83 [email or web address] Not available 01/25 14:42:55 Mother Thyroidectom y [email or web address] Not available 01/25 14:46:30 Father Myocardial infarction 67 [email or web address] Not available 12/2019 14:42:45 Medical History Condition Response Coronary Artery Disease N Other N Atrial Fibrillation N High Blood Pressure N Depression N COPD N Blood Clots N Anxiety Disorder N Muscle, Joint, or Bone Problems N Acid Reflux (GERD) N Cancer N Stroke N ADHD N High Cholesterol N Liver Disease N Schizophrenia N Headaches N Kidney or Bladder Problems N Thyroid Problems N GI Problems N Eating Disorder N Skin Problems N Anemia N Heart Attack (DC) N Diabetes N Seizures/Epilepsy N Asthma N Allergies N Substance Abuse N Hepatitis N Osteoporosis N Heart Failure N Gynecological History Statement/Question Response Date of Last Mammogram 03/26/2019 Date of LMP Menses Monthly N Date of Last Pap Smear 02/24/2019 Age at Menarche 13 Current Control Method Menopause Age at First Child 18 LMP Unknown Obstetrics History GPAL:G 2 P 2 0 0 2 Type Value Multiple Births 0 Full Term 2 Induced 0 Spontaneous 0 Premature 0 Living 2 Ectopics 0 Total 2 Immunizations Vaccine Type Date Status Note Provider Nam e and Address Organization Details Recorded Time influenza, unspecified formulation 9 completed LUDMIL[place], [place] [facility] 01/26/2020 14:47:04 COVID-19, mRNA, LNP-S, PF, 30 mcg/0.3 mL dose 1 completed [place]UDMIL[place] [facility] 05/27/2021 12:58:37 COVID-19, mRNA, LNP-S, PF, 30 mcg/0.3 mL dose 1 completed [place] [facility] 05/27/2021 12:58:57 Influenza, split virus, quadrivalent, preservative 0 completed [place]UDM[place] [facility] 09/01/2020 12:26:28 Past Encounters Encounter ID Performer Location Encounter Start Date Encounter Closed Date Diagnosis/Indication Diagnosis SNOMED-CT Code Diagnosis ICD10 Code Diagnosis IMO Codes Diagnosis Note [id number] Ashley Mclean MD [facility] [address] [place] [address] 01/26/2020 14:14:05 01/27/2020 12:48:25 Essential hypertension 53681981 I10 Gastroesop hageal reflux disease without esophagitis 105411684 K21.9 Allergic rhinitis 331166 04 J30.9 Anti-nucle ar factor detected 169264819 R76.8 takes hydroxychl oroquine Adult heal th examination 871468267 Z00.00 Depression screening 171 797780 Z13.31 patient does not appear to be significan tly depressed. [id number] Ashley Mclean MD [facility] [address] [place] [address] 05/12/2020 09:37:57 05/18/2020 07:05:06 Essential hypertension 22583579 I10 Perennial allergic rhinitis 929116328 J30.89 discussed how to take astelin if she decides the nasal congestion is bad enough to warrant taking it. [id number] Ashley Mclean MD [facility] [address] [place] [address] 08/18/2020 12:09:43 08/23/2020 10:33:03 Essential hypertension 48974104 I10 Anxiety 26347021 F41.9 [id number] Ashley Mclean MD [facility] [address] [place] [address] 09/01/2020 12:09:29 09/03/2020 08:46:00 Administration of influenza vaccine 08866646 Z23 [id number] [facility] [address] [place] [address] 10/14/2020 10:59:55 10/18/2020 08:49:37 Suspected COVID-19 106602913 Z03.89 [id number] Ashley Mclean MD [facility] [address] [place] [address] 03/02/2021 09:57:54 03/07/2021 06:59:47 Allergic rhinitis 61333457 J30.9 Essential hypertension 96179601 I10 BP well controlled ; would like to try tapering down the amlodipine to see if it will stay well controlled . Patient will decrease amlodipine to 5 mg at bedtime. [id number] Ashley Mclean MD [facility] [address] [place] [address] 05/02/2021 09:55:47 05/10/2021 08:07:38 Pain in right knee 6721353380 45819 M25.561 anterior knee pain, worse with walking or standing. Patient states she did a lot of walking in [place] in mid March. Severe pain then, slightly better now. Allergic rhinitis 873725 04 J30.9 Depression screening 171 033077 Z13.31 patient does not appear to be significan tly depressed. Health Concerns Section Related Observation LastModified by Organization Detai ls LastModified Time None Recorded Concern Status LastModified by Organization Details LastModified Time None Recorded Advance Directives Directive N: Trust with Will Payers Insurance Date Sequence Insurance Name Policy Number Policy Waldrop Covered Member ID Waldrop Member ID Guarantor Name 05/10/2021 1 [employer] (POS) [id number] Chris Downing [id number] Tania Downing Notes Date Note Type Note Provider Name and Address Organization Details Recorded Time 08/18/20 20 text/htm l Hypertension F/UReported by PatientHPIFor associated symptoms, patient reportsno dizziness,no lightheadedness,no chest pain,no shortness of breath,no palpitations,no edema, andno calf pain with exertion. For lifestyle, patient reportsregular exerciseandlimiting/avoiding salt. For medications, patient reportstaking medications as directedandno side effects from medication.blood pressure was quite high in the emergency room and with use of the home BP cuff. Anxiety/DepressionReported by PatientHPIFor quality, patient reportsmood worse,increased anxiety, andpanic symptoms. For severity, patient reportsinterference with household activitiesandinterference with sleepbut reportsdenies suicidal ideationsandable to maintain relationships. For context, patient reportsfamily problems. For associated symptoms, patient reportsemotional lability,anxiety,insomnia,res tlessness/agitation,sleep disturbances,anxiety with muscle tension,social withdrawal,anxiety with excessive sweating,urinary frequency, andshortness of breathbut reportsdenies homicidal ideationsandno visual/auditory hallucinations. For duration, patient reportssymptoms lasting over 2 weeks. For onset/timing, patient reportsgradual. For modifying factors, patient reportssocial supportandmedications as directed.ROS as noted in the HPI Ashley Mclean MD Attn: Accounting,[address] [place], [address], [place] [facility] 08/22/2020 21:46:19 10/14/20 20 text/htm l COVID- Symptoms March 2020Reported by Patient COVID ScreeningReported by PatientHPIFor onset/duration of fever, patient reportsfeverbut reportshighest fever 100.1. For associated symptoms, patient reportscough.ROS as noted in the HPI symptoms started on sunday VIKA CANNON NP Attn: Accounting[address] [place], [address], [facility] 10/14/2020 15:15:54 03/02/20 21 text/htm l Sinusitis/AllergyReported by PatientHPIFor associated symptoms, patient reportsnasal dischargeandnasal itchingbut reportsno hemoptysis,no hematemesis,no nausea or vomiting,no headache,no facial pain,no sinus pain,no sore throat, andno ear fullness. For severity, patient reportsfrequent breathing through the mouthbut reportsno pain,does not limit daily activities, andno nosebleeds (epistaxis). For context, patient reportsworse with seasonal allergen exposure. For risk factors, patient reportsfamily history of allergiesbut reportsno current smoking or tobacco use,no history of smoking,no history of asthma,no chemotherapy,no dm,no hiv, andno immunodeficiency. For onset/timing, patient reportsoccurs during particular seasons of the year spring. For duration, patient reportsintermittent. For alleviating factors, patient reportsrelief with nasal steroid flonase. For aggravating factors, patient reportsworse during an upper respiratory infection (a cold),worse when allergies are active,worse with certain sleeping positions,worse with excess fatigue,worse with damp weather,worse with cold weather, andworse with dry air. Hypertension F/UReported by PatientHPIFor associated symptoms, patient reportsno dizziness,no lightheadedness,no chest pain,no shortness of breath,no palpitations,no edema, andno calf pain with exertion. For lifestyle, patient reportsregular exerciseandlimiting/avoiding salt. For medications, patient reportstaking medications as directedandno side effects from medication.ROS as noted in the HPI Ashley Mclean MD Attn: Accounting,[address] [place], [address], [place] [facility] 03/06/2021 15:34:10 05/02/20 21 text/htm l KneeReported by PatientHPIFor associated symptoms, patient reportsweakness,catching/lock ing,popping/clicking,buckling ,grinding,instability, andradiation down legbut reportsno drainage,no fever,no chills,no weight loss, andno change in bowel/bladder habits. For location, patient reportsright,anterior, andmedial. For quality, patient reportsstabbing,sharp, andfrequent. For severity, patient reportsmoderate,pain level 5/10, andworst pain 8/10. For timing, patient reportschronicandrecurrent. For context, patient reportsoveruse. For alleviating factors, patient reportssitting,lying down,heat,ice,rest,elevation, stretching,limited weight bearing, andnsaids. For aggravating factors, patient reportsstanding,walking,carry ing,twisting,bending/squattin g,pushing/pulling,rom,weight bearing,exercise,changing clothes,getting out of bed,going from sit to stand,upstairs,downstairs,col d weather, anddamp weather. Sinusitis/AllergyReported by PatientHPIFor associated symptoms, patient reportsconstantly clearing the throat,nasal discharge, andnasal itchingbut reportsno hemoptysis,no hematemesis,no nausea or vomiting,no headache,no facial pain,no sinus pain,no sore throat,no thick phlegm in throat, andno ear fullness. For severity, patient reportsfrequent breathing through the mouthbut reportsno pain,does not limit daily activities, andno nosebleeds (epistaxis). For context, patient reportsworse with seasonal allergen exposure,worse around animals,worse around pollen,worse around dust,worse around molds,worse with environmental exposure, andworse when mowing grass. For risk factors, patient reportsfamily history of allergies. For onset/timing, patient reportsrecurring. For alleviating factors, patient reportsrelief with nasal steroid __andrelief with antihistamine __. For aggravating factors, patient reportsworse during an upper respiratory infection (a cold),worse when allergies are active,worse with certain sleeping positions,worse with excess fatigue,worse with damp weather,worse with cold weather, andworse with dry air.ROS as noted in the HPI Ashley Mclean MD Attn: Accounting,[address] [facility], [place], [address], [facility] 05/08/2021 17:47:35 OBGyn Episode Ob Episode Information Episode Created Date Number of Fetuses Patient Bloodtype Patient rh Status Prepregnancy Weight lbs Domestic Partner Domestic Partner Phone Father Name [employer] Status 01/26/20 1 CLOSED Fetus Data First Name Last Name Admitted to NICU Weight (g) Sex Living Outcome Pediatric Complications Fetus ID Race Codes Race Delivery Type [id number] Lorenzo Calculation Initial Lorenzo Date Initial Exam Date Initial Exam Provider Initial Ultrasound Date Last Menstrual Period Date Ultra Sound Weeks Gestation 0 Eighteen To Twenty Week Lorenzo Update Ultra Sound Date Fundal Height At Umbil Quickening Date Ultra Sound Latest Weeks Gestation Final Lorenzo Confirmed By Final Lorenzo Confirmed Date Final Lorenzo Date Ultra Sound Latest Days Gestation 0 0 Menstrual History Last Menstrual Date Menses Monthly On Bcp Conception Prior Menses Frequency Hcg Plus Date Menarche Onset Age Delivery Information Delivery Date Delivery Type Labor Anesthesia Weeks Gestation Incision Type Labor Labor Length Hrs Delivered By Post Complications Tubal Sterilization Discharge Date Comments 1 Discharge Information Feeding Method Contraceptive Method Maternal HG B and HCT Levels Ob Episode Information Episode Created Date Number of Fetuses Patient Bloodtype Patient rh Status Prepregnancy Weight lbs Domestic Partner Domestic Partner Phone Father Name [employer] Status 01/26/20 1 CLOSED Fetus Data First Name Last Name Admitted to NICU Weight (g) Sex Living Outcome Pediatric Complications Fetus ID Race Codes Race Delivery Type [id number] Lorenzo Calculation Initial Lorenzo Date Initial Exam Date Initial Exam Provider Initial Ultrasound Date Last Menstrual Period Date Ultra Sound Weeks Gestation 0 Eighteen To Twenty Week Lorenzo Update Ultra Sound Date Fundal Height At Umbil Quickening Date Ultra Sound Latest Weeks Gestation Final Lorenzo Confirmed By Final Lorenzo Confirmed Date Final Lorenzo Date Ultra Sound Latest Days Gestation 0 0 Menstrual History Last Menstrual Date Menses Monthly On Bcp Conception Prior Menses Frequency Hcg Plus Date Menarche Onset Age Delivery Information Delivery Date Delivery Type Labor Anesthesia Weeks Gestation Incision Type Labor Labor Length Hrs Delivered By Post Complications Tubal Sterilization Discharge Date Comments 4 Discharge Information Feeding Method Contraceptive Method Maternal HG B and HCT Levels
--- OUTSIDE RECORDS SUMMARY | 2025-10-12 01:24 | XMS_ITS | Data Portability ---
Author Organization [facility] [place] Address [address] [place] [address] [place] [address] Care Team Providers Care Line Appliance Assembler Name Role Phone DERRICK MCLEAN Primary Care Provider Assessment Encounter Date Assessment Date Assessment LastModified by Organization Details LastModified Time 04/26/2020 04/26/2020 Annual gynecological exam performed. Patient will come back in a year unless there are new symptoms. [email or web address] Not available 04/26/2020 15:49:59 04/28/2021 04/28/2021 Annual gynecological exam performed. Patient will come back in a year unless there are new symptoms. Not available 04/28/2021 11:50:01 Plan of Treatment Reminders Order Date Submit Date Provider Last Modified By Organization Details Last Modified Time Details Appointments None recorded. Lab None recorded. Referral None recorded. Procedures None recorded. Surgeries None recorded. Imaging DEXA, axial skeleton + vertebral fracture assessment 2020 021 [facility], [address], [place], [address], 14:13:42 Medication Orders nystatin-tr iamcinolone 100,000 unit/gram-0 .1 % topical ointment 2019 020 [facility] [address] , [place], [address], 11:53:52 Patient TargetsNo targets recorded. Patient Instructions Encounter Date Encounter Id Patient Instructions Last Modified By Organization Details Last Modified Time 04/26/2020 [id number] [email or web address] Not available 16:50:33 Reason for Referral None Reported. Results Created Date Observation Date Name Description Value Unit Range Abnormal Flag Note LastModifiedBy Organization Detail LastModifiedTime 04/28/20 21 04/28/2021 pap, IG + HR HPV image guided Pap, HPV regardless of Pap result SEE RESULT S BELOW CASE REPOR T: Cytol ogy Gynec ologi esteban Repor t Case: [id number] Autho serenity pineda Provi emerson: Emiliano Hemphill Colle cted: 04/28 1430 B[facility]ON [facility] LIFTER Order ing Locat ion: [place] [facility] Recei kati: 04/29 0156 First Scree n: Reshma Queen, CT Rescr een: Christopher Delong , CT Speci men: Earl peraza Pap - Image d, Cervi x STATE MENT OF ADEQU ACY: Satis facto ry for evalu ation Trans forma tion zone compo nent prese nt FINAL DIAGN OSIS: Negat robin for Intra epith elial Lesjennifer n or Brenda shaffercy Elect tom yap ren d by Christopher Delong , CT on 021 at 11:49 AM ----- ----- ----- ----- ----- ----- ----- ----- ----- ----- ----- ----- ----- ----- ----- ----- ----- ---- HPV RESUL TS: HPV mRNA E6/E7 : No HPV mRNA Detec isidro NOTE: This high risk HPV mRNA assay detec ts fourt een high- risk HPV types (16, 18, 31, 33, 35, 39, 45, 51, 52, 56, 58, 59, 66, 68) witho ut diffe renti ation . CHART ABLE COMME NT: Note: This speci men was revie wed by a Cytot echno logis t and/o r Patho logis t (as indic ated in this repor t) after evalu ation using the Thinp rep Imagi ng Syste m. CLINI ESTEBAN INFOR MATIO N: Menst rual Statu s: LMP (if appli cable ): Clini esteban Histo ry/Pr eviou s Pap: Type of Neopl aruna (if appli cable ): Other Histo ry: Hormo genesis (if appli cable ): PAP EDUCA NINO L NOTE: The Pap Test is a scree karmen test with an inher ent false negat robin rate. Liqui d-bas e sampl ing may decre ase, but will not elimi rylee, false negat robin resul ts. A negat robin resul t does not precl ude the prese nce and/o r devel opmen t of disea se, since the prese nce of abnor mal cells in the sampl e depen ds on the locat ion of the lesio n and sampl ing techn ique. Maulik nued regul ar scree karmen is the best metho d of cance r preve ntion . If repor isidro cytol ogic findi ng do not corre late with physi esteban and/o r histo rical findi ngs, furth er inves tigat ion is recom cassia d, as clini charles warra nted. Not Available [facility] (Lab) [address], [place], [address], 05/02/2021 12:52:20 06/16/20 21 06/15/2021 MAMMO , scree karmen, bilat eral No observ ation record ed. [facility] [address], [place], [address], 06/16/2021 20:17:31 06/24/20 21 DEXA, axial skele ton + verte bral fract ure asses sment No observ ation record ed. [facility] [address], [place], [address], 06/28/2021 17:57:50 Result Notes None recorded. Problems Name Problem SNOMED Code Status Onset Date Resolution Date Notes Provider Name and Address Organization Details Recorded Time Adult health examinat ion Completed 201104/28/2021 Routine Medical Exam;Jayson rded Elsewhere : No Locati on: [facility] So urce: EHR Chron ic: N Practic e ID: 0001 Bill able Time: 08:30:00 AM Susu Ta [facility] 11:54:21 Screenin g for malignan t neoplasm of cervix Completed 201104/28/2021 Screening for malignant neoplasms of the cervix;Re corded Elsewhere : No Locati on: [facility] So urce: EHR Chron ic: N Practic e ID: 0001 Bill able Time: 08:30:[address] [facility] 11:55:00 Leukocyt osis [id number] Completed 201304/28/2021 LEUKOCYTO SIS NOS;Recor ded Elsewhere : No Locati on: [facility] So urce: EHR Chron ic: N Practic e ID: 0001 Bill able Time: 08:30:00 AM Susu Ta [facility] 11:54:48 Postmeno pausal bleeding [id number] Completed 201404/28/2021 Post menopausa l bleeding; Recorded Elsewhere : No Locati on: [facility] So urce: EHR Chron ic: N Practic e ID: 0001 Bill able Time: 08:15:[address] [facility] 11:54:54 Speciali zed medical examinat ion Completed 201404/28/2021 Gynecolog ical Examinati on;Record ed Elsewhere : No Locati on: [facility] So urce: EHR Chron ic: N Practic e ID: 0001 Bill able Time: 08:15:[address] [facility] 11:55:08 Pre-surg zee evaluati on Completed 201404/28/2021 Pre-opera tive examinati on, unspecifi ed;Record ed Elsewhere : No Locati on: [facility] So urce: EHR Chron ic: N Practic e ID: 0001 Bill able Time: 08:30:00 AM Susu Ta [facility] 1 11:54:56 Radiolog y result abnormal Completed 201404/28/2021 Thickened Endometri al Stripe;Pr actice ID: 0001 Susu Ta [facility] 11:54:58 Blood leukocyt e number above referenc e range [id number] Completed 201504/28/2021 Elevated white blood cell count, unspecifi ed;Record ed Elsewhere : No Locati on: [facility] So urce: EHR Chron ic: N Practic e ID: 0001 Bill able Time: 08:30:00 AM Susu Ta [facility] 11:54:[address] Concept Completed 201604/28/2021 Encntr for director of religious life exam (general) (routine) w/o abn findings; Recorded Elsewhere : No Locati on: [facility] So urce: EHR Chron ic: N Practic e ID: 0001 Bill able Time: 08:30:00 AM Susu Ta [facility] 1 11:55:06 Abdomina l pain [id number] Completed 201604/28/2021 Abdominal pain;Jayson rded Elsewhere : No Locati on: [facility] So urce: EHR Chron ic: N Practic e ID: 0001 Bill able Time: 08:30:00 AM Susu Ta [facility] 1 11:54:17 Pelvic and perineal pain [id number] Completed 201604/28/2021 Pelvic and perineal pain;Jayson rded Elsewhere : No Locati on: [facility] So urce: EHR Chron ic: N Practic e ID: 0001 Bill able Time: 08:30:00 AM Susu Ta [facility] 11:54:53 Muscle pain [id number] Completed 201704/28/2021 Myalgia;R ecorded Elsewhere : No Locati on: [facility] So urce: EHR Chron ic: N Practic e ID: 0001 Bill able Time: 08:30:00 AM Susu Ta [facility] 11:54:50 Backache [id number] Completed 201704/28/2021 Back pain;Jayson rded Elsewhere : No Locati on: [facility] So urce: EHR Chron ic: N Practic e ID: 0001 Bill able Time: 08:30:00 AM Susu Ta [facility] 11:54:23 Screenin g for malignan t neoplasm of rectum Completed 201704/28/2021 Encounter for screening for malignant neoplasm of rectum;Re corded Elsewhere : No Locati on: [facility] So urce: EHR Chron ic: N Practic e ID: 0001 Bill able Time: 08:30:00 AM Susu Ta [facility] 11:55:[address] Concept Completed 201804/28/2021 Encntr for general adult medical exam w/o abnormal findings; Recorded Elsewhere : No Locati on: [facility] So urce: EHR Chron ic: N Practic e ID: 0001 Bill able Time: 08:30:00 AM Susu Ta [facility] 11:55:04 Micturit ion finding Completed 201804/28/2021 Urinary incontine nce;Recor ded Elsewhere : No Locati on: [facility] So urce: EHR Chron ic: N Practic e ID: 0001 Bill able Time: 08:30:00 AM Susu Ta [facility] 11:54:25 Problem Notes None recorded. Procedures Surgical History Date Name Laterality Status Provider Name and Address Organization Details Recorded Time 04/28/20 21 Date of Last Pap Smear completed Susu Ta [facility] 04/28/2021 11:58:02 Colonoscopy completed Sharlene Rogers [facility] 04/26/2020 14:57:08 Hysteroscopy completed Sharlene Rogers [facility] 04/26/2020 14:57:22 Hernia repair w/mesh completed Sharlene Rogers [facility] 04/26/2020 14:57:34 Imaging Results None recorded. Procedure Notes None recorded. Medical Equipment None Reported. Allergies No known drug allergies Medications Name Sig Start Date Stop Date Status Note LastModified by Organization Details LastModified Time Centrum Silver tablet 02/21 completed Prescrib ed Elsewher e: Yes Loca tion: [facility] odify By: dawna Kennedy ncounter DateTime : 11/30/19 12 08:30:00 AM Not Available Not Available Not Available L-Lysine 500 mg tablet 03/09 completed Prescrib ed Elsewher e: Yes Loca tion: [facility] odify By: david Kennedy ncounter DateTime : 02/19/20 15 09:00:00 AM Not Available Not Available Not Available metoprolo l succinate ER 50 mg tablet,ex tended release 24 hr TAKE 1 TABLET BY MOUTH ONCE DAILY AT BEDTIME 04/28 completed Not Available Not Available Not Available diclofena c ER 100 mg tablet,ex tended release 24 hr take 1 tablet by oral route every day 04/28 completed Prescrib ed Elsewher e: No Locat ion: [facility] odify By: ken phipps Encou nter DateTime : 03/14/20 18 08:30:00 AM Not Available Not Available Not Available enalapril maleate 2.5 mg tablet take 1 tablet by oral route every day 02/25 completed Prescrib ed Elsewher e: Yes Loca tion: [facility] odify By: david Kennedy ncounter DateTime : 11/30/19 12 08:30:00 AM Not Available Not Available Not Available metoprolo l succinate ER 100 mg tablet,ex tended release 24 hr TAKE 1 TABLET BY MOUTH ONCE DAILY active Not Available Not Available No t Available ciproflox acin 500 mg tablet TAKE 1 TABLET BY MOUTH TWICE DAILY FOR 5 DAYS 04/28 completed Not Available Not Available Not Available omeprazol e 40 mg capsule,d elayed release TAKE 1 CAPSULE BY MOUTH ONCE DAILY active Not Available Not Available No t Available nystatin- triamcino lone 100,000 unit/gram -0.1 % topical ointment APPLY OINTMENT TOPICALL Y TO AFFECTED AREA ONCE DAILY ONLY NEEDED 04/28 completed Not Available Not Available Not Available losartan 100 mg-hydroc hlorothia zide 25 mg tablet TAKE 1 TABLET BY MOUTH ONCE DAILY IN THE MORNING active Not Available Not Available No t Available omeprazol e 10 mg capsule,d elayed release take 2 capsule by oral route every day before a meal 03/14 completed Prescrib ed Elsewher e: Yes Loca tion: [facility] odify By: dawna arriola DateTime : 11/30/19 12 08:30:00 AM Not Available Not Available Not Available hydroxych loroquine sulfate (bulk) powder 2018 active Prescrib ed Elsewher e: Yes Loca tion: [facility] odify By: amkuhl Meghann xiaounttray DateTime : 03/17/20 19 08:30:00 AM Not Available Not Available Not Available amlodipin e 10 mg tablet TAKE 1/2 TABLET BY MOUTH ONCE DAILY AT BEDTIME active Not Available Not Available No t Available buspirone 10 mg tablet TAKE 1 TABLET BY MOUTH TWICE DAILY active Not Available Not Available No t Available hydrochlo rothiazid e 12.5 mg capsule take 2 capsule by oral route every day 02/18 completed Prescrib ed Elsewher e: Yes Loca tion: [facility] odify By: malik brown DateTime : 11/30/19 12 08:30:00 AM Not Available Not Available Not Available monteluka st 10 mg tablet TAKE 1 TABLET BY MOUTH ONCE DAILY active Not Available Not Available No t Available hydroxych loroquine 200 mg tablet TAKE 1 TABLET BY MOUTH ONCE DAILY active Not Available Not Available No t Available fluticaso ne propionat e 50 mcg/actua tion nasal spray,laron pension USE 1 SPRAY(S) IN EACH NOSTRIL ONCE DAILY active Not Available Not Available No t Available cetirizin e 5 mg chewable tablet chew 2 tablet by oral route every day active Prescrib ed Elsewher e: Yes Loca tion: [facility] odify By: dawna arriola DateTime : 03/14/20 18 08:30:00 AM Not Available Not Available Not Available Flovent HFA 44 mcg/actua tion aerosol inhaler inhale 2 puff by inhalati on route 2 times every day 02/21 completed Prescrib ed Elsewher e: Yes Loca tion: Ann kennedy [facility] odify By: dawna xiaounttray DateTime : 02/19/20 15 09:00:00 AM Not Available Not Available Not Available Calcio Yesica 500 mg tablet 02/18 completed Prescrib ed Elsewher e: Yes Loca tion: Ann kennedy [facility] odify By: malik brown DateTime : 11/30/19 12 08:30:00 AM Not Available Not Available Not Available milk thistle 03/09 completed Prescrib ed Elsewher e: Yes Loca tion: Ann kennedy [facility] odify By: breanna [facility] DateTime : 02/19/20 15 09:00:00 AM Not Available Not Available Not Available omeprazol e 04/28 completed Not Available Not Available Not Available diclofena c sodium 04/26 completed Not Available Not Available Not Available hydroxych loroquine 04/28 completed Not Available Not Available Not Available monteluka st 04/28 completed Not Available Not Available Not Available losartan 04/28 completed Not Available Not Available Not Available Glucosami ne 04/28 completed Not Available Not Available Not Available metoprolo l succinate 04/28 completed Not Available Not Available Not Available Vitamin D3 active Not Available Not Available Not Available cetirizin e 04/28 completed Not Available Not Available Not Available multivita min active Not Available Not Available Not Available Ranitidin e 04/26 completed Not Available Not Available Not Available hydrochlo rothiazid e 12.5 mg tablet take 1 tablet by oral route every day 03/09 completed Prescrib ed Elsewher e: Yes Loca tion: Ann kennedy [facility] odify By: david arriola DateTime : 02/19/20 15 09:00:00 AM Not Available Not Available Not Available levocetir izine 2.5 mg/5 mL oral solution take 10 millilit er by oral route every day in the evening 03/14 completed Prescrib ed Elsewher e: Yes Loca tion: Ann kennedy [facility] odify By: dawna arriola DateTime : 02/22/20 16 08:30:00 AM Not Available Not Available Not Available Calcium with Vitamin D 600 mg-10 mcg (400 unit) tablet active Prescrib ed Elsewher e: Yes Loca tion: Ann kennedy [facility] odify By: dawna arriola DateTime : 02/22/20 16 08:30:00 AM Not Available Not Available Not Available ranitidin e 50 mg/2 mL (25 mg/mL) injection solution infuse by intraven ous route every 8 hours over 04/28 completed Prescrib ed Elsewher e: Yes Loca tion: Ann kennedy [facility] odify By: dawna arriola DateTime : 03/14/20 18 08:30:00 AM Not Available Not Available Not Available Calcium-V itamin D 600 mg-10 mcg (400 unit) tablet 02/21 completed Prescrib ed Elsewher e: Yes Loca tion: Ann kennedy [facility] odify By: dawna arriola DateTime : 02/19/20 15 09:00:00 AM Not Available Not Available Not Available Probiotic 10 billion cell capsule 03/17 completed Prescrib ed Elsewher e: Yes Loca tion: Ann kennedy [facility] odify By: david arriola DateTime : 02/19/20 15 09:00:00 AM Not Available Not Available Not Available Probiotic 04/28 completed Not Available Not Available Not Available Probiotic and Acidophil us 300 million cell-250 mg capsule active Prescrib ed Elsewher e: Yes Loca tion: Ann kennedy [facility] odify By: dawna arriola DateTime : 02/22/20 16 08:30:00 AM Not Available Not Available Not Available glucosami ne-chondr oitin 167 mg-133 mg capsule 02/21 completed Prescrib ed Elsewher e: Yes Loca tion: Ann kennedy [facility] odify By: dawna xiaounter DateTime : 02/19/20 15 09:00:00 AM Not Available Not Available Not Available Optiflex Complete 750 mg-400 mg oral pack 03/09 completed Prescrib ed Elsewher e: Yes Loca tion: Ann kennedy [facility] odify By: david xiaounter DateTime : 11/30/19 12 08:30:00 AM Not Available Not Available Not Available Glucosami ne Chondroit in PLUS 375 mg-100 mg-36 mg-54 mg capsule active Prescrib ed Elsewher e: Yes Loca tion: Ann kennedy [facility] odify By: dawna husseiner DateTime : 02/22/20 16 08:30:00 AM Not Available Not Available Not Available Multi Vitamin 9 mg iron/15 mL oral liquid active Prescrib ed Elsewher e: Yes Loca tion: Ann kennedy [facility] odify By: dawna husseiner DateTime : 02/22/20 16 08:30:00 AM Not Available Not Available Not Available Hair,Skin ,Nails with Biotin 7.5 mg-7.5 unit-1,25 0 mcg chewable tablet active Prescrib ed Elsewher e: Yes Loca tion: Ann kennedy [facility] odify By: dawna arriola DateTime : 02/22/20 16 08:30:00 AM Not Available Not Available Not Available fluticaso ne propionat e, micronize d (bulk) 100 % powder 04/28 completed Prescrib ed Elsewher e: Yes Loca tion: Ann kennedy [facility] odify By: dawna arriola DateTime : 02/22/20 16 08:30:00 AM Not Available Not Available Not Available fluticaso ne 0.05 % lotion-em ollient combo no.65 cream, topical kit 04/28 completed Not Available Not Available Not Available Vitals Date Recorded Body height Body mass index (BMI) Body weight Provider Name and Address Organization Details Last Updated DateTime 04/26/2020 2011.68 cm 0.3 kg/m2 630328.12 g Sharlene Ken [facility] 04/26/2020 15:50:37 Date Recorded Body height Body mass index (BMI) Body weight Systolic And Diastolic Provider Name and Address Organization Details Last Updated DateTime 04/28/2021 165.1 cm 44.1 kg/m2 386502.98 g 136/78 mm[Hg] Susu Ta [facility] 04/28/2021 11:50:30 Social History Question Answer Notes LastModified by Organizat ion Details LastModified Time Tobacco Smoking Status Never Smoker Susu Ta [facility] 04/28/2021 11:50:38 Do You Have An Advance Directive? No Information n ot available 04/28/2021 How Many Years Have You Consumed Alcohol? 40 Information not available 04/28/2021 Are You Blind Or Do You Have Difficulty Seeing? No Information n ot available 04/28/2021 What Is Your Level Of Caffeine Consumption? Occasional Information not available 04/28/2021 In The 14 Days Before Symptom Onset, Have You Had Close Contact With A Laboratory-confirm ed COVID-19 While That Case Was Ill? No Information n ot available 04/28/2021 In The 14 Days Before Symptom Onset, Have You Had Close Contact With A Person Who Is Under Investigation For COVID-19 While That Person Was Ill? No Information not available 04/28/2021 Have You Been To An Area Known To Be High Risk For COVID-19? No Information not available 04/28/2021 Are You Deaf Or Do You Have Serious Difficulty Hearing? No Information not available 04/28/2021 What Type Of Diet Are You Following? REGULAR Information n ot available 04/28/2021 What Is The Highest Grade Or Level Of School You Have Completed Or The Highest Degree You Have Received? [id number] Information not available 04/28/2021 Are There Any Guns Present In Your Home? Yes Information not available 04/28/2021 Do You Use Protection During Sex? Always Information not available 04/28/2021 Do You Use Your Seat Belt Or Car Seat Routinely? Yes Information not available 04/28/2021 Do You Have Smoke And Carbon Monoxide Detectors In Your Home? Yes Information not available 04/28/2021 How Much Tobacco Do You Smoke? No Information not available 04/28/2021 Do You Use Sunscreen Routinely? Yes Information not available 04/28/2021 Have You Used IV Drugs? No Information not available 04/28/2021 Sex: Unknown Functional Status Question Answer Note LastModified by Organizat ion Details LastModified Time Do you use any illicit or recreational drugs? No Information not available 04/28/2021 What is your level of alcohol consumption? Occasional Information not available 04/28/2021 Are you able to walk independently without assistance or assistive devices? YESWOREST Information not available 04/28/2021 What is your occupation? Retired Information not available 04/28/2021 What is your exercise level? Occasional Information not available 04/28/2021 Mental Status Question Answer Note LastModified by Organization D etails LastModified Time Do you feel stressed (tense, restless, nervous, or anxious, or unable to sleep at night)? [id number] Information not available 04/28/2021 Family History Relationship Description Onset Age of this Age Resolved Age Notes LastModified by Organization Details LastModified Time Mother Disorder of thyroid gland [email or web address] Not available 2019 14:56:14 Mother Carcinoma in situ of lung [email or web address] Not available 01/2021 11:10:29 Medical History Condition Response Allergies (Food, seasonal, environmental ) Y Acid Reflux (GERD) Y Hypertension Y Gynecological History Statement/Question Response If Post Menopausal, Age at Menopause 51 Date of Last Mammogram Sexually Active? N Date of Last Pap Smear 04/28/2021 Current Control Method Tubal Ligat ion Age at First Child 19 N Obstetrics History GPAL:G 2 P 2 0 0 2 Type Value Full Term 2 Living 2 Total 2 Past Encounters Encounter ID Performer Location Encounter Start Date Encounter Closed Date Diagnosis/Indication Diagnosis SNOMED-CT Code Diagnosis ICD10 Code Diagnosis IMO Codes Diagnosis Note [id number] , [facility] [address] [address] 04/26/2020 15:36:14 04/26/2020 17:26:35 Gynecologic examination 97648037 Z01.419 Take Calcium with Vitamin D 12-1500mg daily. Do monthly self breast exams. It is advised to get annual flu shot in the fall and she could obtain at [facility] or [facility]. If you haven't received the Tdap vaccine in the last 10 years you should obtain one as well. Have mammogram yearly, bone density every 2-3 years and colonoscop y every 5-10 years depending on findings and history. Engage in daily exercise of low impact aerobic exercise 45-60 minutes 4-5 times weekly. Avoid tobacco and illicit drugs as well as using moderation with alcohol intake less than 1-2 8 oz beverages daily. This lifestyle behavior pattern will lead to less health conditions and longer life span. If BMI greater than 25 weight watchers or dietary consult advised. Questions have been answered. Patient appears to understand instructio ns, but if you have any further questions call or respond to this email Pelvic exam completed; inhibited by body habitus Mammo order given UTD Dexa/Colon oscopy Dexz due next year Pap defer until next year age 65yo. Normal pap Hx. If next pap wnl possibly d/c pap smear at 66yo per asccp unless otherwise indicated. . STD declined Unable to obtain a BP due to body size; cuff's not appropriat jerrica fit. See's PCP regularly. Localized eruption of skin [id number] R21 Heat rash under panus. Possible yeast component as well. Discussed keeping as dry as possible, use daily non-talcom powder or Goldbond powder to help keep dry; use prn mycolog (nystatin- triamcinol one ointment as needed only when see red rash area); otherwise daily powder is best. Rx Mycolog ointment sent (if insurance does not cover it dispensed together ok to send medication separately ). [id number] Edwige Arceo , [facility] [address] [address] 04/28/2021 11:09:44 04/28/2021 12:32:24 Gynecologic examination [id number] Z01.419 Take Calcium with Vitamin D 12-1500mg daily. Do monthly self breast exams. It is advised to get annual flu shot in the fall and she could obtain at [facility] or [facility] care clinic. If you haven't received the Tdap vaccine in the last 10 years you should obtain one as well. Have mammogram yearly, bone density every 2-3 years and colonoscop y every 5-10 years depending on findings and history. Engage in daily exercise of low impact aerobic exercise 45-60 minutes 4-5 times weekly. Avoid tobacco and illicit drugs as well as using moderation with alcohol intake less than 1-2 8 oz beverages daily. This lifestyle behavior pattern will lead to less health conditions and longer life span. If BMI greater than 25 weight watchers or dietary consult advised. Questions have been answered. Patient appears to understand instructio ns, but if you have any further questions call or respond to this email Pelvic exam completed; inhibited by body habitus Mammo order given Colonoscop y Dexa ordered Pap/hpv updated. USPSTF recommends against screening for cervical cancer in women older than 65yo who have had adequate prior screening & are not otherwise at high risk for cervical cancer. . STD declined No issues or concerns Covid vaccinatio ns given. Postmenopa usal osteopenia [id number] M85.80 Health Concerns Section Related Observation LastModified by Organization Detai ls LastModified Time None Recorded Concern Status LastModified by Organization Details LastModified Time None Recorded Advance Directives Directive N: Payers Insurance Date Sequence Insurance Name Policy Number Policy Waldrop Covered Member ID Waldrop Member ID Guarantor Name 04/26/2021 1 [employer] (POS II) [id number] Chris Downing [id number] Tania Downing Notes Date Note Type Note Provider Name and Address Organization Details Recorded Time 0 text/html Annual GYNReported by PatientHistoryFor history, patient reportsno gynecologic complaints.Genitourinary symptomsFor menstrual cycle, patient reportsnormal menses. For urinary symptoms, patient reportsno hematuriaandno incontinence. For vulva, patient reportsno genital lesion. For vagina, patient reportsnormal vaginal discharge.Breast symptomsFor breast, patient reportsno breast pain,no breast lump, andno nipple discharge.ContraceptionFo r current contraception, (postmenopausal).Endocrin e symptomsFor sexual complaints, patient reportsno sexual complaints,no pain during intercourse, andnormal libido. For menopausal symptoms, patient reportsno menopausal symptomsandnormal vaginal lubrication.Psychological symptomsFor psychological symptoms, patient reportsno depression,no anxiety, andno pmdd.Preventative measuresFor preventive measures, patient reportsencourage self breast examination,encourage regular exercise,encourage no tobacco use,needs to schedule mammogram, andup to date on colonoscopy screening(dexa due next year 2020).Having heat rash under panus.ROS as noted in the HPI Edwige Arceo [facility] [address], [place], [address], [facility] 04/26/2020 16:53:47 1 text/html Annual Transcription Coordinator Post-MenopausalReported by PatientGenitourinary symptomsFor menopausal symptoms, patient reportsno menopausal symptomsandnormal vaginal lubrication. For vaginal bleeding, patient reportshistory of menopause having occurredandno history of post menopausal bleeding. For urinary symptoms, patient reportsno hematuria,no incontinence,no nocturia, andno urinary frequency. For vulva, patient reportsno genital lesionandno vulvar atrophy. For vagina, patient reportsnormal vaginal dischargeandno vaginal atrophy.Breast symptomsFor breast, patient reportsno breast lump,no nipple discharge, andno breast pain.Psychological symptomsFor sexual complaints, patient reportsno sexual complaints. For psychological symptoms, patient reportsno depressionandno anxiety.Preventative measuresFor preventive measures, patient reportsencourage regular mammograms starting age 40,encourage self breast examination,encourage regular exercise,encourage no tobacco use,needs to schedule mammogram,history of recent colonoscopy, andneeds to schedule bone density. [facility] [address], [place], [address], [facility] 04/28/2021 12:30:33 OBGyn Episode Ob Episode Information Episode Created Date Number of Fetuses Patient Bloodtype Patient rh Status Prepregnancy Weight lbs Domestic Partner Domestic Partner Phone Father Name Parts Cataloger Status 04/26/20 20 1 CLOSED Fetus Data First Name Last Name Admitted to NICU Weight (g) Sex Living Outcome Pediatric Complications Fetus ID Race Codes Race Delivery Type 189 Lorenzo Calculation Initial Lorenzo Date Initial Exam [...] Domestic Partner Domestic Partner Phone Father Name Parts Cataloger Status 04/26/20 20 1 CLOSED Fetus Data First Name Last Name Admitted to NICU Weight (g) Sex Living Outcome Pediatric Complications Fetus ID Race Codes Race Delivery Type 189 Lorenzo Calculation Initial Lorenzo Date Initial Exam [...]
--- OUTSIDE RECORDS SUMMARY | 2025-10-12 01:25 | XMS_ITS | Clinical Summary ---
Author Organization [facility] Address [address] [place] [address] Care Team Providers Care Supervisor Wrapping Room Name Role Phone ZeinabDivyaMoriah Owens DPT Unavailable Ananth Blue MD Unavailable [phone] Autumn Nieves Unavailable Unavailable Abrahan Noriega MD Primary Care Provider Allergies Active Allergy Reactions Criticality Noted Date Comments Morphine Hallucinations Medium 11/06/2022 Medications raNITIdine (ZANTAC) 300 mg tablet Take 300 mg by mouth daily. Active cetirizine (ZyrTEC) 10 mg tablet Take 1 tablet (10 mg total) by mouth daily Act robin calcium carbonate-vit brown D3 (CALTRATE 600 + D) 1500 mg (600 mg elemental) -400 units per tablet Take by mouth. Acti ve fluticasone (FLONASE) 50 mcg/actuation nasal spray Administer 1 spray into each nostril daily 04/15/20 18 Active byss-datlx-ks 0-isp-gbf-fis h-st [id number] mg capsule Take by mouth. Acti ve ascorbic acid-vitamin E-biotin (HAIR, SKIN, NAILS WITH BIOTIN) 7.5-7.5-1,250 mg-unit-mcg tablet,chewab le Take by mouth. Activ e losartan-hydr ochlorothiazi de (HYZAAR) 100-25 mg per tablet Take 1 tablet by mouth daily 04/16/20 18 Active multivit-min- ferrous fumarate 9 mg iron/15 mL liquid Take by mouth. Activ e Lactobac comb 8-SRD-xenyoql ine 300-250 million cell-mg capsule Take by mouth. Activ e diclofenac XR (VOTAREN XR) 100 mg 24 hr tablet Take by mouth daily. 0 18 Active montelukast (SINGULAIR) 10 mg tablet Take by mouth daily. 0 15 Active TOPROL XL 50 mg 24 hr tablet 10/29/20 18 Active hydroCHLOROth iazide (HYDRODIURIL) 12.5 mg tablet hydrochlorothiazide 12.5 mg tablet Take 1 tablet(s) every day by oral route. Active amLODIPine (NORVASC) 10 mg tablet Take 1 tablet (10 mg total) by mouth nightly 11/09/20 20 Active busPIRone (BUSPAR) 10 mg tablet 09/24/20 20 Active omeprazole (PriLOSEC) 40 mg capsule omeprazole 40 mg capsule,delayed release Active azelastine (ASTELIN) 137 mcg (0.1 %) nasal spray every 12 hours Act robin carvediloL (COREG) 6.25 mg tablet 2 (two) times a day with meals 08/28/20 23 Active clobetasoL-ca lcipotriene 0.05-0.005 % solution 10/29/20 23 Active buPROPion XL (WELLBUTRIN XL) 300 mg 24 hr tablet Take 1 tablet (300 mg total) by mouth daily 01/31/20 24 Active clotrimazole 1 % cream Apply topically 2 (two) times a day 30 g 2 05/07/20 24 Active hydroxychloro quine (PLAQUENIL) 200 mg tablet Take 1 tablet (200 mg total) by mouth daily 180 tablet 1 07/31/20 25 Active losartan (COZAAR) 100 mg tablet Take 1 tablet (100 mg total) by mouth daily Act robin Active Problems Problem Noted Date Diagnosed Date Other forms of systemic lupus erythematosus 10/27 Undifferentiated connective tissue disease 10/27 Backache 03/14/2018 Postmenopausal bleeding 02/04/2015 Patellofemoral pain syndrome 04/22/2013 Knee pain 04/16/2013 Encounters Date Type Department Care Team Description 09/18/2025 Results Follow-Up [facility] Medicine Rheumatology [address] 5[address] [place] [address] [place] [address] Stella Hutson MD Anti-double stranded DNA abs, CRP (acute phase), C3 complement, Additional followed-up results: 10 09/16/2025 3:00 PM CDT Lab [facility] at [address] [place] [address] Other systemic lupus erythematosus with other organ involvement 09/16/2025 11:40 AM CDT Office Visit [facility] Rheumatology [address] [place] [address] Stella Hutson MD Need for immunization against influenza (Primary Dx); Other systemic lupus erythematosus with other organ involvement from Last 3 Months Immunizations Immunization Administration Dates Next Due Influenza, Trivalent, Adjuvanted, Intramuscular 09/16/2025 Surgical History Surgery Date Site/Laterality Comments TONSILLECTOMY 11/26/1976 - 11/25/1977 GALLBLADDER SURGERY HERNIA REPAIR [id number] Medical History Medical History Date Comments Hypertension Sinus disorder Fatigue Dry mouth Headache Back pain GERD (gastroesophageal reflux disease) Family History Medical History Relation Name Comments Heart attack Father COPD Mother Relation Name Status Comments Father Mother Social History Tobacco Use Types Packs/Day Years Used Date Smoking Tobacco: Never Smokeless Tobacco: Never Tobacco Cessation:Counseling Given: Not Answered Alcohol Use Standard Drinks/Week Comments Yes 3 (1 standard drink = 0.6 oz pur e alcohol) wine, beer, rum &coke AUDIT-C Answer Date Recorded Q1: How often do you have a drink containing alc ohol? 2-3 times a week 05/07/2024 Average Number of Drinks Not on file 024 Frequency of Binge Drinking Not on file 04/26 Comments Unknown Sex and Gender Information Value Date Recorded Sex Assigned at Not on file Legal Sex Female 10:23 AM [employer]OOK EDIT[employer] Gender Identity Female 05/06/2018 1:41 PM CDT Sexual Orientation Straight 03/10/2024 5: 52 PM CDT Last Filed Vital Signs Vital Sign Reading Time Taken Comments Blood Pressure 143/80 09/16/2025 11:26 AM CDT Pulse 78 09/16/2025 11:26 AM CDT Temperature 36.7 C (98 F) 09/16/2025 11:26 AM CDT Respiratory Rate - - Oxygen Saturation 100% 09/16/2025 11: 26 AM CDT Inhaled Oxygen Concentration - - Weight 108.1 kg (238 lb 6.4 oz) 025 11:26 AM CDT Height 167.6 cm (5' 6) 09/16/2025 11:2 6 AM CDT Body Mass Index 38.48 09/16/2025 11:26 AM CDT Plan of Treatment Health Maintenance Due Date Last Done Comments Colon Cancer Screening-Colonoscopy 1956 Depression Screening 1956 Fall Risk Assessment 1956 Hepatitis C Screening 1956 Osteoporosis Screening-Bone Density Scan 1956 Hepatitis B Screening 1974 Zoster Vaccine (1 of 2) 1975 DTaP/Tdap/Td Vaccine (1 - Tdap) 07/02/2015 5 Well Visit 65+ 2021 Breast Cancer Screening-Mammogram 06/16/2022 021 Pneumococcal vaccine 65+ Completed 08/07/2023, 02/24 Influenza Vaccine Completed 09/16/2025, , 09/01/2020, Additional history exists Procedures Procedure Name Priority Date/Time Associated Diagnosis Comments EGFR Routine 09/16/2025 12:18 PM CDT Other systemic lupus erythematosus with other organ involvement URINALYSIS, MICROSCOPIC ONLY Routine 09/16/2025 12:18 PM CDT Other systemic lupus erythematosus with other organ involvement DIFFERENTIAL AUTO Routine 09/16/2025 12: 18 PM CDT Other systemic lupus erythematosus with other organ involvement ERYTHROCYTE SEDIMENTATION RATE Routine 09/16/2025 12:18 PM CDT Other systemic lupus erythematosus with other organ involvement C4 COMPLEMENT Routine 09/16/2025 12:18 PM CDT Other systemic lupus erythematosus with other organ involvement PROTEIN / CREATININE RATIO, URINE, RANDOM Routine 09/16/2025 12:18 PM CDT Other systemic lupus erythematosus with other organ involvement CBC WITH AUTO DIFFERENTIAL Routine 09/16/2025 12:18 PM CDT Other systemic lupus erythematosus with other organ involvement COMPREHENSIVE METABOLIC PANEL Routine 09/16/2025 12:18 PM CDT Other systemic lupus erythematosus with other organ involvement C3 COMPLEMENT Routine 09/16/2025 12:18 PM CDT Other systemic lupus erythematosus with other organ involvement CRP (ACUTE PHASE) Routine 09/16/2025 12: 18 PM CDT Other systemic lupus erythematosus with other organ involvement ANTI-DOUBLE STRANDED DNA ANTIBODIES Routine 09/16/2025 12:18 PM CDT Other systemic lupus erythematosus with other organ involvement URINALYSIS AND REFLEX TO MICROSCOPIC AND CULTURE Routine 09/16/2025 12:18 PM CDT Other systemic lupus erythematosus with other organ involvement URINE CULTURE Routine 09/16/2025 12:18 PM CDT from Last 3 Months Results * (ABNORMAL) Anti-double stranded DNA abs (09/16/2025 12:18 PM CDT) dsDNA Ab 100.0(H) <=4.0 IUnits/mL Comment: Interpretive Data Negative: < or = 4 IUnits/mL Indeterminate: 5 - 9 IUnits/mL Positive: > or = 10 IUnits/mL Current interpretive data was last revised on 2017. Testing performed by: [facility], [address], [place]., [address] Blood 09/16/2025 12:1 8 PM CDT 09/16/2025 2:29 PM CDT us Stella Hutson MD LAB BLOOD ORDERABLES Final Result [facility] [address] [facility]. [place] [address] [phone] * (ABNORMAL) eGFR (09/16/2025 12:18 PM CDT) eGFR 59(L) >=60 mL/min/1. 73 m2 Comment: Interpretive Data Reference Interval Normal >/= 90 mL/min/1.73m2 Mildly decreased* 60 - 89 mL/min/1.73m2 Mildly to moderately decreased 45 - 59 mL/min/1.73m2 Moderately to severely decreased 30 - 44 mL/min/1.73m2 Severely decreased 15 - 29 mL/min/1.73m2 Kidney Failure < 15 mL/min/1.73m2 *Relative to young adult level Estimated glomerular filtration rate is determined by the 2020 CKD-EPI equation recommended by the National Kidney Foundation (A Unifying Approach to GFR Estimation: Recommendations of the NKF-ASK Task Force on Reassessing the Inclusion of Race in Diagnosing Kidney Disease, JASN 2020). The CKD-EPI equation should not be used for patients with unstable renal function and has not been validated in children and those over 70. Current interpretive data was last reviewed 2021. Testing performed by: [facility], [address] [place] [address] Blood 09/16/2025 12:1 8 PM CDT 09/16/2025 12:44 PM CDT Stella Hutson MD LAB BLOOD ORDERABLES Final Result [facility] [address] [place] [address] * Differential, auto (09/16/2025 12:18 PM CDT) Neutrophil abs 4.58 1.50 - 6.50 K/cumm Comment:Testing performed by : [facility], [facility], [address] [place] [address] Imm gran abs 0.02 0.00 - 0.10 K/cumm DAVID SCHWAB Comment:Testing performed by : [facility], [facility] 2, [address] [place] [address] Lymphocyte abs 1.33 0.80 - 3.30 K/cumm CERNER BJWCH Comment:Testing performed by : [facility], [facility] 2, [address] [place] [address] Monocyte abs 0.39 0.20 - 0.80 K/cumm CERNER BJWCH Comment:Testing performed by : [facility], [facility] 2, [address] [place] [address] Eosinophil abs 0.18 0.00 - 0.50 K/cumm CERNER BJWCH Comment:Testing performed by : [facility], [facility] 2, [address] [place] [address] Basophil abs 0.08 0.00 - 0.10 K/cumm CERNER BJWCH Comment:Testing performed by : [facility], [facility] 2, [address] [place] [address] Neutrophil pct 69.7 % CERNER BJWCH Comment: Interpretive Data Percent cell count reference ranges are not reported, since discordance with absolute values may lead to misinterpretation of CBC data. Current Interpretive Data was last revised on 2018. Testing performed by: [facility], [facility] 2, [address], [place] [address] Imm gran pct 0.3 % CERNER BJWCH Comment: Interpretive Data Percent cell count reference ranges are not reported, since discordance with absolute values may lead to misinterpretation of CBC data. Current Interpretive Data was last revised on 2018. Testing performed by: [facility], [facility] 2, [address] [place] [address] Lymphocyte pct 20.2 % CERNER BJWCH Comment: Interpretive Data Percent cell count reference ranges are not reported, since discordance with absolute values may lead to misinterpretation of CBC data. Current Interpretive Data was last revised on 2018. Testing performed by: [facility], [facility] 2, [address], [place] [address] Monocyte pct 5.9 % CERNER BJWCH Comment: Interpretive Data Percent cell count reference ranges are not reported, since discordance with absolute values may lead to misinterpretation of CBC data. Current Interpretive Data was last revised on 2018. Testing performed by: [facility], [facility] 2, [address] [place] [address] Eosinophil pct 2.7 % DAVID SCHWAB Comment: Interpretive Data Percent cell count reference ranges are not reported, since discordance with absolute values may lead to misinterpretation of CBC data. Current Interpretive Data was last revised on 2018. Testing performed by: [facility], [facility] 2, [address] [place] [address] Basophil pct 1.2 % DAVID SCHWAB Comment: Interpretive Data Percent cell count reference ranges are not reported, since discordance with absolute values may lead to misinterpretation of CBC data. Current Interpretive Data was last revised on 2018. Testing performed by: [facility], [facility] 2, [address] [place] [address] Blood 09/16/2025 12:1 8 PM CDT 09/16/2025 12:19 PM CDT Stella Hutson MD LAB BLOOD ORDERABLES [facility] [address] [facility]. Department [employer] [place], [place] [id number] * C4 complement (09/16/2025 12:18 PM CDT) Complement C4 20 10 - 40 mg/dL Comment:Testing performed by : [facility], [facility] [facility], [place]., [address] Blood 09/16/2025 12:1 8 PM CDT 09/16/2025 3:08 PM CDT Stella Hutson MD LAB BLOOD ORDERABLES [facility] [address] [place] [address] * (ABNORMAL) Urinalysis reflex to microscopic and culture Urine (09/16/2025 12:18 PM CDT) Color, ur Straw Yellow Comment:Testing performed by : [facility], [address], [place] [address] Clarity, ur Turbid(A) Clear CERNER BJWCH Comment:Testing performed by : [facility], [address], [place] [address] Specific gravity, ur 1.011 1.003 - 1.030 CERNER BJWCH Comment:Testing performed by : [facility], [address], [place] [address] pH, urine 6.5 CERNER BJWCH Comment: Interpretive Data U rine pH is affected by diet, medications, systemic acid-base disturbances, and renal tubular function. pH may affect urinary stone formation. For example, urine pH below 6.0 may help reduce the tendency for calcium phosphate stones and pH greater than 6.0 may reduce the tendency for uric acid stone formation. Source: [facility] [employer] Current Interpretive Data was last revised on 2017 Testing performed by: [facility], [address], [place] [address] Protein, ur ql Negative Negative CERNER BJWCH Comment:Testing performed by : [facility], [address], [place] [address] Glucose, ur ql Negative Negative CERNER BJWCH Comment:Testing performed by : [facility], [address], [place] [address] Ketones, ur Negative Negative CERNER BJWCH Comment:Testing performed by : [facility], [address], [place] [address] Bilirubin, ur Negative Negative CERNER BJWCH Comment:Testing performed by : [facility], [address], [place] [address] Blood, ur Negative Negative CERNER BJWCH Comment:Testing performed by : [facility], [address], [place] [address] Urobilinogen, ur <2.0 <2.0 mg/dL DAVID SCHWAB Comment:Testing performed by : [facility], [address], [place] [address] Nitrite, ur Negative Negative DAVID SCHWAB Comment:Testing performed by : [facility], [address], [place] [address] Leukocyte esterase, ur 4+(A) Negative DAVID SCHWAB Comment:Testing performed by : [facility], [address], [place], [place] [address] UA reflex comment Reflex to microscopic UA will be performed. DAVID SCHWAB Comment:Testing performed by : [facility], [address] [place] [address] Urine 09/16/2025 12:1 8 PM CDT 09/16/2025 12:43 PM CDT Stella Hutson MD LAB MICROBIOLOGY - GENERAL ORDERABLES Final Result [facility] [address]. [place] [address] * CBC with auto differential (09/16/2025 12:18 PM CDT) WBC 6.58 3.80 - 9.90 K/cumm Comment:Testing performed by : [facility], [facility] , [address] [place] [address] Hgb 13.7 11.9 - 15.5 g/dL DAVID SCHWAB Comment:Testing performed by : [facility], [facility] 2, [address] [place] [address] Hct 41.7 35.6 - 45.5 % DAVID SCHWAB Comment:Testing performed by : [facility], [facility] , [address] [place] [address] Plt 327 150 - 400 K/cumm DAVID SCHWAB Comment:Testing performed by : [facility], [facility] 2, [address] [place] [address] MPV 9.3 9.1 - 12.3 fL CERNER BJWCH Comment:Testing performed by : [place] [address], [address] [place] [address] RBC 4.65 3.90 - 5.20 M/cumm CERNER BJWCH Comment:Testing performed by : [place] [address], [address] [place] [address] MCV 89.7 81.3 - 96.4 fL CERNER BJWCH Comment:Testing performed by : [place] [address], [place] [address] MCH 29.5 27.1 - 33.3 pg CERFRANKI BJWCH Comment:Testing performed by : [place] [address], [address] [place] [address] MCHC 32.9 32.3 - 35.7 g/dL CERFRANKI BJWCH Comment:Testing performed by : [place] [address] [place] [address] RDW CV 12.8 11.1 - 14.9 % CERNER BJWCH Comment:Testing performed by : [place] [address], [address] [place] [address] RDW SD 41.3 35.7 - 48.1 fL CERFRANKI BJWCH Comment:Testing performed by : [address], [place] [address] ANC Prelim 4.58 1.50 - 6.50 K/cumm CERNER BJWCH Comment: Interpretive Data The rapid ANC is a preliminary automated count and may vary from the final ANC (Neut Abs) reported in the WBC differential that follows. Current interpretive data was last revised 2025. Testing performed by: [place] [address], [address] [place] [address] Blood 09/16/2025 12:1 8 PM CDT 09/16/2025 12:19 PM CDT Stella Hutson MD LAB BLOOD ORDERABLES Final Result Performing Organization Address [facility] Co de Phone Number [facility] [address]. [place] [address] * Protein / creatinine ratio, urine, random (09/16/2025 12:18 PM CDT) Protein, ur, quant 8.9 mg/dL Comment: Interpretive Data No reference range established. Current interpretive data was last revised 2019. Testing performed by: [facility], [address] [place] [address] Creatinine Ur 66.8 mg/dL DAVID SCHWAB Comment: Interpretive Data No reference range established. Current interpretive data was last revised 2019. Testing performed by: [facility], [address], [place] [address] Protein/creatinin e ratio 133.1 0.0 - 180.0 mg/g CR DAVID BAE Comment:Testing performed by : [facility], [address] [place] [address] Urine 09/16/2025 12:1 8 PM CDT 09/16/2025 12:43 PM CDT Stella Hutson MD LAB URINE ORDERABLES Final Result Performing Organization Address [facility] Co de Phone Number [facility] [address]. [place] [address] * (ABNORMAL) Urinalysis, microscopic only (09/16/2025 12:18 PM CDT) WBC, ur 21-50(A) 0 - 5 /HPF Comment:Testing performed by : [facility], [address], [place], [place] [address] RBC, ur 6-10(A) 0 - 2 /HPF DAVID JIMÉNEZWEDUARD Comment:Testing performed by : [facility], [address], [place] [address] Epithelial cells, squamous, ur 6-10(A) 0 - 5 /HPF DAVID SCHWAB Comment:Testing performed by : [facility], [address], [place] [address] Mucous, ur Present(A) DAVID SCHWAB Comment:Testing performed by : [facility], [address], [place] [address] Culture Reflex Comment Reflex to urine culture will be performed. DAVID SCHWAB Comment:Testing performed by : [facility], [address], [place] [address] Urine 09/16/2025 12:1 8 PM CDT 09/16/2025 12:43 PM CDT Stella Hutson MD LAB URINE ORDERABLES Final Result Performing Organization Address City/[facility]/ZIP Co de Phone Number [facility] [address]. [place] [address] * Erythrocyte sedimentation rate (09/16/2025 12:18 PM CDT) Erythrocyte sedimentation rate 26 1 - 30 mm/hr Comment:Testing performed by : [facility], [address], [place] [address] Blood 09/16/2025 12:1 8 PM CDT 09/16/2025 12:44 PM CDT Stella Hutson MD LAB BLOOD ORDERABLES Final Result [facility] [address]. [facility] [place] [address] * C3 complement (09/16/2025 12:18 PM CDT) Complement C3 145 90 - 180 mg/dL Comment:Testing performed by : [facility], [facility] [facility], [place]., [address] Blood 09/16/2025 12:1 8 PM CDT 09/16/2025 3:08 PM CDT Stella Hutson MD LAB BLOOD ORDERABLES Final Result Performing Organization Address [facility] Co de Phone Number DAVID BAE [address] [place] [address] * CRP (acute phase) (09/16/2025 12:18 PM CDT) CRP <3.0 <=10.0 mg/L Comment:Testing performed by : [facility], [address] [place] [address] Blood 09/16/2025 12:1 8 PM CDT 09/16/2025 12:44 PM CDT Stella Hutson MD LAB BLOOD ORDERABLES Final Result Performing Organization Address [facility] Co de Phone Number [facility] [address] [place] [address] * Comprehensive metabolic panel (09/16/2025 12:18 PM CDT) Sodium 143 135 - 145 mmol/L Comment:Testing performed by : [facility], [address] [place] [address] Potassium, pl 4.4 3.3 - 4.9 mmol/L CERNER BJWCH Comment:Testing performed by : [facility], [address], [place] [address] Chloride 106 97 - 110 mmol/L CERNER BJWCH Comment:Testing performed by : [facility], [address], [place] [address] CO2 25 22 - 32 mmol/L CERNER BJWCH Comment:Testing performed by : [facility], [address] [place] [address] Anion gap 12 2 - 15 mmol/L CERNER BJWCH Comment:Testing performed by : [facility], [address], [place] [address] BUN 12 6 - 25 mg/dL CERNER BJWCH Comment:Testing performed by : [facility], [address], [place] [address] Creatinine 1.03 0.60 - 1.10 mg/dL CERNER BJWCH Comment:Testing performed by : [facility], [address], [place] [address] Glucose 93 70 - 199 mg/dL CERNER BJWCH Comment: Interpretive Data Fasting glucose >/= 126 mg/dl is diagnostic for diabetes. Fasting is defined as no caloric intake for at least 8 hours. Fasting glucose between 100 mg/dl to 125 mg/dl is diagnostic of prediabetes. In a patient with classic symptoms of hyperglycemia or hyperglycemic crisis, a random glucose >/= 200 mg/dl is diagnostic for diabetes. In the absence of unequivocal hyperglycemia, results should be confirmed by repeat testing. The classification and Diagnosis of Diabetes Diabetes Care 2021; 46: S19-S40. Current interpretive data was last revised 2022. Testing performed by: [facility], [address], [place] [address] Calcium 9.6 8.5 - 10.3 mg/dL CERNER BJWCH Comment:Testing performed by : [facility], [address], [place] [address] Bilirubin, total 0.6 0.1 - 1.2 mg/dL CERNER BJWCH Comment:Testing performed by : [facility], [address], [place] [address] Protein, pl 7.0 6.5 - 8.5 g/dL CERNER BJWCH Comment:Testing performed by : [facility], [address], [place] [address] Albumin 4.3 3.5 - 5.0 g/dL CERNER BJWCH Comment:Testing performed by : [facility], [address], [place] [address] Alk phos 84 40 - 130 Units/L CERNER BJWCH Comment:Testing performed by : [facility], [address], [place] [address] ALT 17 7 - 45 Units/L DAVID SCHWAB Comment:Testing performed by : [facility], [address], [place] [address] AST 22 10 - 45 Units/L DAVID SCHWAB Comment:Testing performed by : [facility], [address], [place] [address] Blood 09/16/2025 12:1 8 PM CDT 09/16/2025 12:44 PM CDT Stella Hutson MD LAB BLOOD ORDERABLES Final Result Performing Organization Address [facility]/ZIP Co de Phone Number TERRYFRANKI JIMÉNEZWCH [id number] [address] [facility] [place] [employer] [place] [address] * (ABNORMAL) Urine culture Urine (09/16/2025 12:18 PM CDT) Report Final Report: Growth indicates contamination with gram-positive julio c. (.) Comment:Testing performed by : [facility], [facility] [facility], [place]., [address] Organism GROWTH INDICATES CONTAMINATION WITH GRAM-POS JULIO C DAVID SCHWAB Urine 09/16/2025 12:1 8 PM CDT 09/16/2025 5:59 PM CDT Narrative DAVID SCHWAB - 09/17/2025 12:18 PM CDT Urine culture reflexed based upon urinalysis results. Stella Hutson MD LAB MICROBIOLOGY - GENERAL ORDERABLES Final Result DAVID JIMÉNEZWCH [id number] [address] [facility] [place] [employer] [place] [address] from Last 3 Months Insurance MEDICARE AET SENIOR SUPPLEMENT [facility] MEDICARE AET SENIOR SUPPLEMENT MEDICARE AET SENIOR SUPPLEMENT Care Teams Supervisor Wrapping Room Relationship Specialty Start Date End Date Abrahan Noriega MD PCP - General Internal Medicine 11/06/22 Divya Arriola, NANCY [address] [facility] [address] [place] [id number] Physical Therapist Physical Therapy 05/07/18 Ananth Blue MD [address] [facility] [address] [facility] [address] [place] [address] Referring Physician Orthopedic Surgery 05/16/18 Autumn Nieves 06/04/18
--- OUTSIDE RECORDS SUMMARY | 2025-10-12 01:25 | XMS_ITS | Encounter Summary ---
Author Organization [facility] Address [address] [place] [address] Phone Care Team Providers Care Welder Fitter Apprentice Name Role Phone Divya Arriola DPT Unavailable Ananth Blue MD Unavailable [phone] Autumn Nieves Unavailable Unavailable Abrahan Noriega MD Primary Care Provider [phone] Encounter Details Date Type Department Care Team (Late st Contact Info) Description 09/18/2025 Results Follow-Up Health system Medicine Rheumatology [address] [facility] Advanced Medicine 5th [place] [address] [place] [address] Stella Hutson MD [address] [facility] [address] [place] [address] Anti-double stranded DNA abs, CRP (acute phase), C3 complement, Additional followed-up results: 10 Social History Tobacco Use Types Packs/Day Years Used Date Smoking Tobacco: Never Smokeless Tobacco: Never Alcohol Use Standard Drinks/Week Comments Yes 3 [...] on file 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 Gender Identity Female 05/06/2018 1:41 PM CDT Sexual Orientation Straight 03/10/2024 5: 52 PM CDT documented as of this encounter Plan of Treatment Not on file documented as of this encounter Visit Diagnoses Not on filedocumented in this encounter Care Teams Welder Fitter Apprentice Relationship Specialty Start Date End Date Abrahan Noriega MD PCP - General Internal Medicine 11/06/22 Divya Arriola DPT [address] [facility] [address] [place] [address] Physical Therapist Physical Therapy 05/07/18 Ananth Blue MD [address] [facility] [address] [facility] [address] [place] [address] Referring Physician Orthopedic Surgery 05/16/18 Autumn Nieves 06/04/18 documented as of this encounter
--- OUTSIDE RECORDS SUMMARY | 2025-10-12 01:25 | XMS_ITS | Data Portability ---
Author Organization [facility] [employer], Main Office Address [address] [place] [address] Assessment No assessment recorded. Plan of Treatment Reminders Order Date Submit Date Provider Last Modified By Organization Details Last Modified Time Details Appointments Any 15 2024 01:45P Melecio Noriega MD Not available Not available Not available Lab vitamin D, 25-hydrox y, total, serum 2024 025 [email or web address] [facility] (Lab), [address] [place], [address], 03/03/2025 11:09:00 CMP, serum or plasma 2024 025 [facility] (Lab), [address] [place], [address], 02/24/2025 20:49:11 lipid panel, serum 2024 025 [facility] (Lab), [address] [place], [address], 02/24/2025 20:49:14 CBC w/ auto diff 2024 025 [facility] (Lab), [address] [place], [address], 02/24/2025 20:37:04 Referral None recorded. Procedures colonosco py screening (PROC) - Please call patient to schedule an appointme nt. Thank you. 2024 025 [email or web address] Art alcantara MD, [address], [address], [place], [address], 05/26/2025 08:43:08 colonosco py screening (PROC) 2023 024 [email or web address] Christopher Gallardo MD, [address], [address], [place], [address], 05/20/2024 08:29:48 Surgeries None recorded. Imaging None recorded. Medication Orders Farxiga 10 mg tablet 2024 025 [facility]/Pharmacy #[id number], [address] [place], [address], 06/29/2025 15:26:50 losartan [address] tablet [address] [id number] [address] [place], [address], 06/29/2025 15:26:51 clotrimaz ole-betam ethasone 1 %-0.05 % topical cream 2024 025 [email or web address] [facility]/Pharmacy #[id number], [address] [place], [address], 06/29/2025 15:00:16 amlodipin e 5 mg tablet 2023 024 [facility]/Pharmacy #[id number], [address] [place], [address], 09/23/2024 15:19:[address] 10 mg tablet 2023 024 [facility]/Pharmacy #[id number], [address] [place], [address], 05/05/2024 09:32:03 omeprazol e 40 mg capsule,d elayed release 2023 024 [facility]/Pharmacy #[id number], [address] [place], [address], 05/05/2024 09:34:47 Patient TargetsNo targets recorded. Patient Instructions Encounter Date Encounter Id Patient Instructions Last Modified By Organization Details Last Modified Time 05/05/2024 [id number] Exercise discussed, physical activity handouts given Dietary counseling given, nutrition handouts given Not available 05/05/2024 09:14:00 09/23/2024 [id number] Exercise discussed, physical activity handouts given Dietary counseling given, nutrition handouts given Not available 09/23/2024 15:06:00 02/24/2025 [id number] Exercise discussed, physical activity handouts given Dietary counseling given, nutrition handouts given Not available 02/24/2025 09:12:35 05/11/2025 [id number] Keep area dry an d clean. Wear cotton to help with dryness. Change bra frequently and avoid tight clothing at this time. [email or web address] Not available 05/11/2025 15:09:24 Use cream as directed. Follow up 3-4 days with no improvement [email or web address] Not available 05/11/2025 15:11:14 06/29/2025 [id number] Exercise discussed, physical activity handouts given Dietary counseling given, nutrition handouts given Not available 06/29/2025 15:03:00 Reason for Referral None Reported. Results Created Date Observation Date Name Description Value Unit Range Abnormal Flag Note LastModifiedBy Organization Detail LastModifiedTime 02/25/2002/24/2025 CBC/C OMPLE TE BLD COUNT W/DIF F white blood cells 6.0 x10'3 /uL 4.2-10 .8 Not Available [facility] (Lab) [address] [place], [address], 02/24/2025 20:37:04 02/25/20 25 02/24/2025 CBC/C OMPLE TE BLD COUNT W/DIF F red blood cells 4.40 x10'6 /uL 3.80-5 .20 Not Available [facility] (Lab) [address] [place], [address], 02/24/2025 20:37:04 02/25/20 25 02/24/2025 CBC/C OMPLE TE BLD COUNT W/DIF F hemoglobin 13.8 g/dL 12.0-1 5.6 Not Available [facility] (Lab) [address] [place], [address], 02/24/2025 20:37:04 02/25/20 25 02/24/2025 CBC/C OMPLE TE BLD COUNT W/DIF F hematocrit 41.1 % 35.7-4 5.7 Not Available [facility] (Lab) [address] [facility] [place], [address], 02/24/2025 20:37:04 02/25/20 25 02/24/2025 CBC/C OMPLE TE BLD COUNT W/DIF F mean red cell volume 93.4 fL 82.0-9 9.0 Not Available [facility] (Lab) [address] [place], [address], 02/24/2025 20:37:04 02/25/20 25 02/24/2025 CBC/C OMPLE TE BLD COUNT W/DIF F mean red cell hemoglobin 31.4 pg 27.0-3 3.0 Not Available [facility] (Lab) [address] [place], [address], 02/24/2025 20:37:04 02/25/20 25 02/24/2025 CBC/C OMPLE TE BLD COUNT W/DIF F mean RBC HGB concentratio n 33.6 g/dL 31.0-3 6.0 Not Available [facility] (Lab) [address] [place], [address], 02/24/2025 20:37:04 02/25/20 25 02/24/2025 CBC/C OMPLE TE BLD COUNT W/DIF F red cell distribution width 13.2 % 11.8-1 5.5 Not Available [facility] (Lab) [address] [place], [address], 02/24/2025 20:37:04 02/25/20 25 02/24/2025 CBC/C OMPLE TE BLD COUNT W/DIF F platelets 241 x10'3 /uL 150-40 0 Not Available [facility] (Lab) [address] [place], [address], 02/24/2025 20:37:04 02/25/20 25 02/24/2025 CBC/C OMPLE TE BLD COUNT W/DIF F mean platelet volume 10.8 fL 9.0-12 .4 Not Available [facility] (Lab) [address] [place], [address], 02/24/2025 20:37:04 02/25/20 25 02/24/2025 CBC/C OMPLE TE BLD COUNT W/DIF F neutrophils 69.6 % 39.0-7 2.0 Not Available [facility] (Lab) [address] [place], [address], 02/24/2025 20:37:04 02/25/20 25 02/24/2025 CBC/C OMPLE TE BLD COUNT W/DIF F lymphocytes 17.8 % 16.0-4 7.0 Not Available [facility] (Lab) [address] [place], [address], 02/24/2025 20:37:04 02/25/20 25 02/24/2025 CBC/C OMPLE TE BLD COUNT W/DIF F monocytes 8.4 % 5.0-12 .0 Not Available [facility] (Lab) [address] [place], [address], 02/24/2025 20:37:04 02/25/20 25 02/24/2025 CBC/C OMPLE TE BLD COUNT W/DIF F eosinophils 2.7 % 1.0-7. 0 Not Available [facility] (Lab) [address] [place], [address], 02/24/2025 20:37:04 02/25/20 25 02/24/2025 CBC/C OMPLE TE BLD COUNT W/DIF F basophils 1.3 % 0.0-2. 0 Not Available [facility] (Lab) [address] [place], [address], 02/24/2025 20:37:04 02/25/20 25 02/24/2025 CBC/C OMPLE TE BLD COUNT W/DIF F immature granulocytes 0.2 % 0.00-0 .50 Not Available [facility] (Lab) [address] [place], [address], 02/24/2025 20:37:04 02/25/20 25 02/24/2025 CBC/C OMPLE TE BLD COUNT W/DIF F neutrophils, absolute count 4.16 x10'3 /uL 1.5-8. 0 Not Available [facility] (Lab) [address] [place], [address], 02/24/2025 20:37:04 02/25/20 25 02/24/2025 CBC/C OMPLE TE BLD COUNT W/DIF F lymphocytes, absolute count 1.06 x10'3 /uL 1.07-3 .43 low Not Available [facility] (Lab) [address] [place], [address], 02/24/2025 20:37:04 02/25/20 25 02/24/2025 CBC/C OMPLE TE BLD COUNT W/DIF F monocytes, absolute count 0.50 x10'3 /uL 0.29-0 .99 Not Available [facility] (Lab) [address] [place], [address], 02/24/2025 20:37:04 02/25/20 25 02/24/2025 CBC/C OMPLE TE BLD COUNT W/DIF F eosinophils, absolute count 0.16 x10'3 /uL 0.02-0 .53 Not Available [facility] (Lab) [address] [place], [address], 02/24/2025 20:37:04 02/25/20 25 02/24/2025 CBC/C OMPLE TE BLD COUNT W/DIF F basophils, absolute count 0.08 x10'3 /uL 0.01-0 .08 Not Available [facility] (Lab) [address] [place], [address], 02/24/2025 20:37:04 02/25/20 25 02/24/2025 CBC/C OMPLE TE BLD COUNT W/DIF F immature granulocytes ,absolute 0.01 x10'3 /uL 0.00-0 .05 Not Available [facility] (Lab) [address] [place], [address], 02/24/2025 20:37:04 02/25/20 25 02/24/2025 CBC/C OMPLE TE BLD COUNT W/DIF F nucleated red blood cells 0.0 % -0 Not Available [facility] (Lab) [address] [place], [address], 02/24/2025 20:37:04 02/25/20 25 02/24/2025 CBC/C OMPLE TE BLD COUNT W/DIF F NRBC# 0.00 x10'3 /uL Not Available [facility] (Lab) [address] [place], [address], 02/24/2025 20:37:04 02/25/20 25 02/24/2025 COMPR EHENS CIRO METAB OLIC PANEL sodium 140 mmol/ L 137-14 5 Not Available [facility] (Lab) [address] [place], [address], 02/24/2025 20:49:11 02/25/20 25 02/24/2025 COMPR EHENS CIRO METAB OLIC PANEL potassium 3.9 mmol/ L 3.5-5. 1 Not Available [facility] (Lab) [address] [place], [address], 02/24/2025 20:49:11 02/25/20 25 02/24/2025 COMPR EHENS CIRO METAB OLIC PANEL chloride 107 mmol/ L 98-107 Not Available [facility] (Lab) [address] [place], [address], 02/24/2025 20:49:11 02/25/20 25 02/24/2025 COMPR EHENS CIRO METAB OLIC PANEL carbon dioxide 29 mmol/ L 22-30 Not Available [facility] (Lab) [address] [place], [address], 02/24/2025 20:49:11 02/25/20 25 02/24/2025 COMPR EHENS CIRO METAB OLIC PANEL anion gap 7.9 mmol/ L 14-22 low Not Available [facility] (Lab) [address] [place], [address], 02/24/2025 20:49:11 02/25/20 25 02/24/2025 COMPR EHENS CIRO METAB OLIC PANEL glucose 93 mg/dL 70-99 Not Available [facility] (Lab) [address] [place], [address], 02/24/2025 20:49:11 02/25/20 25 02/24/2025 COMPR EHENS CIRO METAB OLIC PANEL BUN 22 mg/dL 8-19 high Not Available [facility] (Lab) [address] [place], [address], 02/24/2025 20:49:11 02/25/20 25 02/24/2025 COMPR EHENS CIRO METAB OLIC PANEL creatinine 1.15 mg/dL 0.66-1 .25 Not Available [facility] (Lab) [address] [place], [address], 02/24/2025 20:49:11 02/25/20 25 02/24/2025 COMPR EHENS CIRO METAB OLIC PANEL GFR 47 Refer ence Range : [place] ge GFR Healt hy Adult : >60 mL/mi n/1.7 3 m2 Chron ic Kidne y Disea se: 15-60 mL/mi n/1.7 3 m2 Kidne y Failu re: <15/m L/min /1.73 m2 www.n iddk. nih.g ov The MDRD study equat ion has not been valid ated in child wilber <18 years of age; pregn ant women ; the elder ly >85 years of age; or in some racia l or ethni c subgr oups, such as Hispa nics. Outsi de the valid ated don eters , estim ated GFR is less accur ate, requi ring clini esteban judgm ent on a case- by-ca se basis . Clini esteban inter preta tion for other races and ages must be made by the clini florian. The MDRD study equat ion has not been valid ated for the evalu ation of serum creat inine relat ed to nutri christopher l statu s or medic ation usage . For perso ns <18 years of age, a pedia tric GFR calcu lator is avail able on the [facility] websi te: https :[email or web address] crocker.yisel wiley/darlene leon s/yino qi/gf r_cal culat or Not Available [facility] (Lab) [address] [place], [address], 02/24/2025 20:49:11 02/25/20 25 02/24/2025 COMPR EHENS CIRO METAB OLIC PANEL alkaline phosphatase 88 U/L 38-126 Not Available [facility] (Lab) [address] [place], [address], 02/24/2025 20:49:11 02/25/20 25 02/24/2025 COMPR EHENS CIRO METAB OLIC PANEL alanine aminotransfe rase 20 U/L 0-35 Not Available [facility] (Lab) [address] [place], [address], 02/24/2025 20:49:11 02/25/20 25 02/24/2025 COMPR EHENS CIRO METAB OLIC PANEL aspartate aminotransfe rase 32 U/L 15-37 Not Available [facility] (Lab) [address] [place], [address], 02/24/2025 20:49:11 02/25/20 25 02/24/2025 COMPR EHENS CIRO METAB OLIC PANEL bilirubin, total 0.70 mg/dL 0.20-1 .30 Not Available [facility] (Lab) [address] [place], [address], 02/24/2025 20:49:11 02/25/20 25 02/24/2025 COMPR EHENS CIRO METAB OLIC PANEL calcium 9.4 mg/dL 8.4-10 .2 Not Available [facility] (Lab) [address] [place], [address], 02/24/2025 20:49:11 02/25/20 25 02/24/2025 COMPR EHENS CIRO METAB OLIC PANEL total protein 6.9 g/dL 6.3-8. 2 Not Available [facility] (Lab) [address] [place], [address], 02/24/2025 20:49:11 02/25/20 25 02/24/2025 COMPR EHENS CIRO METAB OLIC PANEL albumin 4.5 g/dL 3.0-4. 4 high Not Available [facility] (Lab) [address] [place], [address], 02/24/2025 20:49:11 02/25/20 25 02/24/2025 COMPR EHENS CIRO METAB OLIC PANEL globulin 2.4 g/dL 2.6-4. 2 low Not Available [facility] (Lab) [address] [place], [address], 02/24/2025 20:49:11 02/25/20 25 02/24/2025 COMPR EHENS CIRO METAB OLIC PANEL A/G ratio 1.9 ratio 1.0-2. 0 Not Available [facility] (Lab) [address] [place], [address], 02/24/2025 20:49:11 02/25/20 25 02/24/2025 LIPID PANEL cholesterol 179 mg/dL 140-19 9 [facility] NSUS RECOM MENDA TION FOR OSCAR STERO L: ADULT CHILD LOW RISK: <200 <170 BORDE RLINE : <200- 239 ----- HIGH RISK: >240 >200 Not Available [facility] (Lab) [address] [place], [address], 02/24/2025 20:49:14 02/25/20 25 02/24/2025 LIPID PANEL triglyceride s 98 mg/dL 0-150 [facility] NSUS REPOR T RECOM MENDA TION FOR TRIGL YCERI NORMA: ADULT CHILD LOW RISK: <150 ----- BODER LINE: 150-1 99 ----- HIGH RISK: >200 ----- Not Available [facility] (Lab) [address] [place], [address], 02/24/2025 20:49:14 02/25/20 25 02/24/2025 LIPID PANEL HDL cholesterol 59 mg/dL 40- Not Available [facility] (Lab) [address] [place] [address], [address], 02/24/2025 20:49:14 02/25/20 25 02/24/2025 LIPID PANEL LDL cholesterol, calculated 100 mg/dL 0-130 [facility] NSUS REPOR T RECOM MENDA TIONS FOR LDL: ADULT CHILD LOW RISK <130 <110 (OPTI MAL LDL) <100 ----- BORDE RLINE : 130-1 59 ----- HIGH RISK: >160 >130 A TRIGL YCERI DE RESUL T >400 INVAL IDATE S THE CALCU LATIO N FOR LDL FRACT IONAT ION - THE LDL RESUL T WILL NOT BE REPOR DULCE MARIA. Not Available [facility] (Lab) [address] [place], [address], 02/24/2025 20:49:14 02/25/20 25 02/24/2025 VITAM IN D 25-HY DROXY [email or web address] 82.8 NG/mL 30-100 Vitam in D Statu s: Defic ient: <20 ng/mL Insuf ficie nt: 20-29 ng/mL Suffi cient : 30-10 0 ng/mL Not Available [facility] (Lab) [address] [place], [address], 02/24/2025 21:04:19 12/26/19 25 12/24/2024 MAMMO , yaz peraza, digit al, bilat eral No observ ation record ed. [email or web address] Not Available 2024 09:56:33 Result Notes None recorded. Problems Name Problem SNOMED Code Status Onset Date Resolution Date Notes Provider Name and Address Organization Details Recorded Time Injury of wrist 783956000 Completed Not Available [facility] 3 15:18:54 Gastroesop hageal reflux disease 143986991 Active Not Available [facility] 3 15:18:54 Numbness of hand 552815333 Completed Not Available [facility] 3 15:18:54 Sinusitis 38491389 Completed LUDMILA Gard[place], [place] [employer] [facility] 4 12:00:36 Adhesive capsulitis of shoulder 566087042 Completed Not Available [facility] 3 15:18:54 Obesity 553380951 Active Not Available [facility] 3 15:18:54 Pain of shoulder region 36372748 Completed Not Available [facility] 3 15:18:54 Essential hypertensi on 23834502 Active Not Available [facility] 3 15:18:55 Allergic rhinitis 64464693 Active Not Available [facility] 3 15:18:55 Liver function tests outside reference range 434286959 Completed 201706/26/2022 Not Available [facility] 3 15:18:54 Depressive disorder 70052126 Active 2020 Not Available [facility] 3 15:18:54 Osteoarthr itis 727124146 Active 2020 Not Available [facility] 3 15:18:54 Abnormalit y of nail of toe 930230832 Completed 202112/28/2023 Supriya guzman RMA null, [place] [facility] 4 07:46:01 Anxiety 81269279 Active 2022 Supriya guzman RMA null, [place] [facility] 4 07:45:57 Renal insufficie ncy 367017808 Active 2022 Supriya guzman RMA null, [place] [facility] 4 07:46:03 Anti-nucle ar factor detected 202257873 Active 2022 Supriya guzman RMA null, [place] [facility] 4 07:46:21 Eruption 829358888 Completed 202212/28/2023 Supriya guzman RMA null, [place] [facility] [place] [facility] 4 07:46:09 Systemic lupus erythemato laron 14018747 Active 2023 Supriya guzman RMA null, [place] [facility] 4 07:46:15 Sinusitis 68735937 Active 2023 Karen Bryson MA null, [place] [facility] 4 12:00:36 Sore throat 452300163 Active 2023 Supriya guzman RMA null, [place] [facility] 4 14:00:40 Upper respirator y infection 65856485 Active 2023 Karen Bryson MA null, [place] [facility] [place] [facility] 4 14:12:08 Pruritic rash 92050096 Active 2024 RUBIO Martinez [address] [facility], [facility] [address], [place], [address] , [employer] [facility] [employer] [facility] 13:56:44 Chronic kidney disease stage 2 074649744 Active 2024 Abrahan Noriega MD [address] [facility], [facility] [address], [place], [address] , [facility] [employer] [facility] [employer] [facility] 15:26:12 COVID-19 826122795 Active 2024 RUBIO Martinez [address] [facility], [facility] [address], [place], [address] , [employer] [facility] [employer] [facility] 12:08:02 Problem Notes None recorded. Procedures Surgical History Date Name Laterality Status Provider Name and Address Organization Details Recorded Time 06/09/20 24 Chronic care management services cancelled Dorys Lew RN [facility] [employer] [facility] 06/09/2024 15:55:45 04/07/20 21 Most Recent Bone Density completed Not Available [facility] 01/24/2023 15:15:32 01/18/20 12 Date of Last Colonoscopy completed Not Available [facility] 01/24/2023 15:15:32 total knee replacement completed Dorys Lew RN [facility] [employer] [facility] 06/09/2024 15:32:13 cholecystectomy completed Dorys Lew RN [facility] [employer] [facility] 06/09/2024 15:31:45 hernia repair completed Dorys Lew RN [facility] [employer] [facility] 06/09/2024 15:31:55 tonsillectomy completed Dorys Lew RN [place] [facility] [employer] [facility] 06/09/2024 15:32:03 Imaging Results None recorded. Procedure Notes None recorded. Medical Equipment None Reported. Allergies No known drug allergies Medications Name Sig Start Date Stop Date Status Note LastModified by Organization Details LastModified Time amoxicill in 500 mg capsule TAKE ALL 4 CAPSULES ONE HOUR PRIOR TO DENTAL PROCEDUR E active Not Available Not Available No t Available carvedilo l 6.25 mg tablet 6.25 MG ORALLY EVERY 12 HOURS MUST ADMINIST ER WITH A MEAL/IRENE D active Not Available Not Available No t Available cetirizin e 10 mg tablet Take 1 tablet every day by oral route as needed. 10/04 completed Not Available Not Available Not Available ranitidin e 300 mg tablet TAKE 1 TABLET DAILY active Not Available Not Available No t Available diclofena c ER 100 mg tablet,ex tended release 24 hr 08/06 completed Not Available Not Available Not Available enalapril maleate 20 mg tablet TAKE ONE TABLET BY MOUTH ONCE DAILY active Not Available Not Available No t Available meloxicam 15 mg tablet TAKE 1 TABLET BY MOUTH EVERY DAY 12/03 completed Not Available Not Available Not Available Medrol (French) 4 mg tablets in a dose pack take as directed on prepacka ged rx 09/23 completed per 08/08/24 patient case / ds Not Available Not Available Not Available metoprolo l succinate ER 100 mg tablet,ex tended release 24 hr TAKE 1 TABLET BY MOUTH EVERY DAY 10/10 completed Not Available Not Available Not Available Zithromax Z-French 250 mg tablet Take 2 TABLET EVERY DAY by oral route for 1 day. then 1 tab a day for 4 days 09/23 completed per 08/08/24 patient case / ds Not Available Not Available Not Available Toprol XL 50 mg tablet,ex tended release TAKE 1 TABLET DAILY 10/04 completed Not Available Not Available Not Available amlodipin e 5 mg tablet TAKE 1 TABLET BY MOUTH EVERY DAY active Not Available Not Available No t Available ciproflox acin 500 mg tablet 10/04 completed Not Available Not Available Not Available sulfameth oxazole 800 mg-trimet hoprim 160 mg tablet 08/07 completed Not Available Not Available Not Available omeprazol e 40 mg capsule,d elayed release TAKE 1 CAPSULE BY MOUTH EVERY DAY active Not Available Not Available No t Available tramadol 50 mg tablet TAKE 1 TABLET BY MOUTH EVERY 8 HOURS NEEDED FOR PAIN 12/03 completed Not Available Not Available Not Available amoxicill in 500 mg tablet Take 1 tablet every 12 hours by oral route. active Not Available Not Available No t Available nystatin- triamcino lone 100,000 unit/gram -0.1 % topical ointment 10/04 completed Not Available Not Available Not Available losartan 100 mg-hydroc hlorothia zide 25 mg tablet TAKE 1 TABLET BY MOUTH EVERY DAY 06/29 completed Not Available Not Available Not Available amlodipin e 10 mg tablet TAKE 1/2 TABLET BY MOUTH DAILY AT BEDTIME 09/23 completed JOSEFA 05/05/24 NOV 09/04/24 ok to rf Not Available Not Available Not Available ranitidin e 150 mg tablet Take 1 tablet twice a day by oral route. 02/19 completed Not Available Not Available Not Available buspirone 10 mg tablet TAKE 1 TABLET BY MOUTH TWICE A DAY 2024 active JOSEFA 06/29/25 NOV 10/29/25 ok to rf Not Available Not Available Not Available clotrimaz ole-betam ethasone 1 %-0.05 % topical cream APPLY TO AFFECTED AREA TWICE A DAY FOR 2 WEEKS IN THE MORNING AND EVENING (AND SURROUND ING AREAS) 06/29 completed Not Available Not Available Not Available monteluka st 10 mg tablet TAKE 1 TABLET BY MOUTH EVERY DAY active Not Available Not Available No t Available hydrochlo rothiazid e 25 mg tablet TAKE ONE TABLET BY MOUTH IN THE MORNING active Not Available Not Available No t Available clobetaso l 0.05 % topical ointment APPLY OINTMENT TOPICALL Y TO AFFECTED AREA TWICE DAILY 06/29 completed Not Available Not Available Not Available azelastin e 137 mcg (0.1 %) nasal spray [place] 2 sprays twice a day by intranas al route. 09/23 completed Not Available Not Available Not Available hydroxych loroquine 200 mg tablet TAKE 1 TABLET BY MOUTH ONCE DAILY active Not Available Not Available No t Available losartan 100 mg tablet TAKE 1 TABLET BY MOUTH EVERY DAY active Not Available Not Available No t Available fluticaso ne propionat e 50 mcg/actua tion nasal spray,laron pension USE 1 SPRAY NASALLY DAILY active Not Available Not Available No t Available clotrimaz ole 1 % topical cream APPLY TO AFFECTED AREA TWICE A DAY 06/29 completed Not Available Not Available Not Available bupropion HCl XL 300 mg 24 hr tablet, extended release TAKE 1 TABLET BY MOUTH EVERY DAY active Not Available Not Available No t Available bupropion HCl XL 150 mg 24 hr tablet, extended release TAKE 1 TABLET BY MOUTH EVERY DAY 11/10 completed Not Available Not Available Not Available hydrochlo rothiazid e 12.5 mg tablet Take 1 tablet(s ) every day by oral route. active Not Available Not Available No t Available levocetir izine 5 mg tablet TAKE 1 TABLET DAILY 06/13 completed Not Available Not Available Not Available Farxiga 10 mg tablet Take 1 tablet every day by oral route. 2024 active Not Available Not Available Not [employer] BinaxNOW COVID-19 Ag Self Test kit Use as Directed on the Package 11/02 completed Not Available Not Available Not Available Paxlovid 150 mg-100 mg tablets in a dose pack (Moderate Renal Dose) Take as directed on packagin g 2024 active Not Available Not Available Not Avai labperla Vitals Date Recorded Body mass index (BMI) Body weight Systolic And Diastolic Provider Name and Address Organization Details Last Updated DateTime 02/24/2025 40 kg/m2 690018.91 g 120/60 mm[Hg] Ashlyn Dorantes [facility] [employer] [facility] [employer] 02/24/2025 09:28:02 Date Recorded Body height Provider Name an d Address Organization Details Last Updated DateTime 02/24/2025 167.64 cm Supriya guzman [facility] [employer] [facility] [employer] 02/24/2025 09:12:09 Date Recorded Body height Body mass index (BMI) Body weight Body temperature Heart rate Oxygen saturation Oxygen saturation in Arterial blood by Pulse oximetry Systolic And Diastolic Provider Name and Address Organization Details Last Updated DateTime 4 167.64 cm 39.5 kg/m2 687429. 13 g 97.5 [degF] 58 /min 98 % 98 % 124/74 mm[Hg] Supriya bach [facility] [employer] [facility] [employer] 4 09:12:55 Date Recorded Body weight Body temperature Heart rate Respiratory rate Oxygen saturation Oxygen saturation in Arterial blood by Pulse oximetry Systolic And Diastolic Provider Name and Address Organization Details Last Updated DateTime 5 514276. 31 g 97.9 [degF] 59 /min 17 /min 98 % 98 % 126/80 mm[Hg] Juana Strange [employer] [facility] [employer] 5 14:34:58 Date Recorded Body height Provider Name an d Address Organization Details Last Updated DateTime 06/09/2024 167.64 cm Dorys Lew RN [facility] [employer] 06/09/2024 15:25:20 Date Recorded Body height Body mass index (BMI) Body weight Body temperature Heart rate Oxygen saturation Oxygen saturation in Arterial blood by Pulse oximetry Systolic And Diastolic Provider Name and Address Organization Details Last Updated DateTime 167.64 cm 39.5 kg/m2 045312. 13 g 97.3 [degF] 65 /min 97 % 97 % 120/70 mm[Hg] Supriya Anthony isreal [place] [employer] [facility] [employer] 14:59:19 Date Recorded Body height Body temperature Heart rate Oxygen saturation Oxygen saturation in Arterial blood by Pulse oximetry Systolic And Diastolic Provider Name and Address Organization Details Last Updated DateTime 167.64 cm 98.1 [degF] 60 /min 98 % 98 % 126/82 mm[Hg] Supriyachivo Cruz isreal [facility] [employer] [facility] [employer] 15:03:00 Social History Question Answer Notes LastModified by Organizat ion Details LastModified Time Tobacco Smoking Status Never Smoker Not Available [facility] 01/24/2023 15:14:56 Do You Have An Advance Directive? Yes MIGRATION. 37295 Information not available 01/24/2023 Do You Wear A Helmet When Biking? No MIGRATION.04468 34352 Information not available 01/24/2023 Are You Blind Or Do You Have Difficulty Seeing? No MIGRATION. 40767 Information not available 01/24/2023 What Is Your Level Of Caffeine Consumption? Moderate MIGRATION. 30677 Information not available 01/24/2023 Are You Deaf Or Do You Have Serious Difficulty Hearing? No MIGRATION.12670 00300 Information not available 01/24/2023 What Type Of Diet Are You Following? REGULAR MIGRATION. 57514 Information not available 01/24/2023 What Is The Highest Grade Or Level Of School You Have Completed Or The Highest Degree You Have Received? [id number] MIGRATION. 15994 Information not available 01/24/2023 Have There Been Any Changes To Your Family Or Social Situation? No MIGRATION. 04820 Information not available 01/24/2023 What Is The Fluoride Status Of Your Home? Fluoridated MIGRATION.88251 57834 Information not available 01/24/2023 Do You Use Insect Repellent Routinely? No MIGRATION.82250 67327 Information not available 01/24/2023 Where Do You Live? [place] MIGRATION.77871 65233 Information not available 01/24/2023 Do You Have A Medical Power Of Instrument Maker? Yes MIGRATION.58740 79852 Information not available 01/24/2023 What Was The Date Of Your Most Recent Tobacco Screening? 06/29/2025 Information not available 06/29/2025 Have You Ever Been Counseled For Unhealthy Alcohol Use? No MIGRATION.25420 20845 Information not available 01/24/2023 Do You Have Any Pets? Yes MIGRATION.16211 78501 Information not available 01/24/2023 What Is Your Relationship Status? MIGRATION.84936 05259 Information not available 01/24/2023 Do You Use Your Seat Belt Or Car Seat Routinely? Yes MIGRATION.43413 90113 Information not available 01/24/2023 Do You Have Smoke And Carbon Monoxide Detectors In Your Home? Yes MIGRATION.54195 36169 Information not available 01/24/2023 Are You Passively Exposed To Smoke? No MIGRATION.42490 26312 Information not available 01/24/2023 Are There Any Smokers In Your House? No MIGRATION.15685 39847 Information not available 01/24/2023 Do You Use Sunscreen Routinely? Yes MIGRATION.20989 91506 Information not available 01/24/2023 Have You Recently Traveled Abroad? No [place] 2 Weeks Ago MIGRATION.42082 43821 Information not available 01/24/2023 Do You Have Difficulty Walking Or Climbing Stairs? Yes MIGRATION.38051 83836 Information not available 01/24/2023 Do You Have Any Dietary Restrictions? No MIGRATION.67002 76629 Information not available 01/24/2023 Sex: Female Functional Status Question Answer Note LastModified by Organizat ion Details LastModified Time Do you use any illicit or recreational drugs? No MIGRATION.71320 95524 Information not available 01/24/2023 Do you or have you ever used any other forms of tobacco or nicotine? No MIGRATION.43378 75523 Information not available 01/24/2023 What is your level of alcohol consumption? Occasional MIGRATION.11504 47921 Information not available 01/24/2023 Do you have transportation difficulties? No MIGRATION.06868 53959 Information not available 01/24/2023 Are you able to walk independently without assistance or assistive devices? YESWOREST MIGRATION.18748 75435 Information not available 01/24/2023 Do you have difficulty doing errands alone? No MIGRATION.14786 82781 Information not available 01/24/2023 Are you able to care for yourself independently? Yes MIGRATION.21054 17991 Information not available 01/24/2023 What is your occupation? Retired MIGRATION.30722 02435 Information not available 01/24/2023 Do you have difficulty dressing, bathing, grooming, or toileting? No MIGRATION.70678 86187 Information not available 01/24/2023 What is your exercise level? Heavy water aerobics 3-5 times a week MIGRATION.33783 74621 Information not available 01/24/2023 Mental Status Question Answer Note LastModified by Organizat ion Details LastModified Time Do you feel stressed (tense, restless, nervous, or anxious, or unable to sleep at night)? [id number] MIGRATION.85779394 26 Information not available 01/24/2023 Do you have difficulty concentrating, remembering or making decisions? No MIGRATION.57846554 26 Information not available 01/24/2023 Family History Relationship Description Onset Age of this Age Resolved Age Notes LastModified by Organization Details LastModified Time Father Essential hypertension MIGRATION.402 [id number] Not available 01/24/2023 15:15:34 Father Heart disease MIGRATION.589 8260689 Not available 01/24/2023 15:15:34 Mother Essential hypertension MIGRATION.208 [id number] Not available 01/24/2023 15:15:34 Mother Malignant neoplastic disease LUNG MIGRATION.414 6485256 Not available 01/24/2023 15:15:34 Maternal Aunt Diabetes mellitus MIGRATION.745 [id number] Not available 01/24/2023 15:15:34 Medical History Condition Response NERVE DISEASE N BLINDNESS N RHEUMATIC FEVER N KIDNEY STONES N BLADDER PROBLEMS N MRSA N OTHER # 1 N POLIO N LUNG DISEASE/DISORDER N HISTORY OF DRUG ABUSE N COPD N RADIATION / CHEMOTHERAPY N Other # 2 N BLOOD DISEASES N EAR OR HEARING PROBLEMS N MUMPS Y SHINGLES N BOWEL PROBLEMS N DEPRESSION (INCLUDING POST ) Y FAILED BACK SYNDROME N STROKE/TIA N ULCERS N BENIGN PROSTATIC HYPERPLASIA N MEASLES N HYPOTENSION N MYOCARDIAL INFARCTION N OBESITY N GERD/NAUSEA Y ANEURYSM N URINARY/BLADDER/KIDNEY PROBLEMS N CORONARY ARTERY DISEASE (CAD) N Do you have Advance directive? Y ADDICTION CONCERNS N ENDOMETRIOSIS N Impotence N USE OF BLOOD THINNERS N SKIN PROBLEMS N GASTROINTESTINAL DISORDER N PERIPHERAL VASCULAR DISEASE N MUSCLE,JOINT OR BONE PROBLEMS Y GASTROINTESTINAL BLEEDING N BLOOD CLOTS N ASTHMA N Abdominal Pain N CATARACTS Y ARTERIAL INSUFFICIENCY N ERECTILE DYSFUNCTION N VARICOSITIES N GI PROBLEMS N Low Testosterone N INFERTILITY N AIDS/HIV N CHEMOTHERAPY / RADIATION N LIVER DISEASE N MALE HYPOGONADISM N HYPERTENSION Y Deficiency N TOURETTE'S N ANXIETY DISORDER Y BLOOD TRANSFUSION N ANEMIA/BLOOD DISORDER N CHRONIC EAR INFECTIONS N TUBERCULOSIS N GLAUCOMA N FOOT PROBLEM N DIVERTICULITIS Y CHICKENPOX Y SLEEP APNEA N BACK INJECTIONS N ALLERGIES/HAYFEVER Y INFECTIOUS DISEASE Y HEART ARRHYTHMIA N PROSTATE N ESRD N INSOMNIA Y HIGH CHOLESTEROL / HYPERLIPIDEMIA N HYPERTHYROIDISM N EYE PROBLEMS N PVD N EDEMA N CHRONIC PAIN SYNDROME N HYPOTHYROIDISM N CONSTIPATION N CAROTID BLOCKAGE N BACK / NECK PROBLEMS Y HAVE YOU BEEN HOSPITALIZED OR SEEN IN [facility] IN THE PAST YEAR ? Y ATHEROSCLEROSIS N BREAST PROBLEMS N DIALYSIS N POLYCYSTIC OVARIES N ECZEMA N OSTEOPOROSIS N ARTHRITIS Y NO SIGNIFICANT PAST MEDICAL HISTORY N APPENDICITIS N DIABETES, TYPE N BAD TEETH N VON WILLIBRAND'S DISEASE N ENT N HEARTBURN / REFLUX Y GI Y AUTISM SPECTRUM DISORDER (ASD) N POST LAMINECTOMY SYNDROME N HEPATITIS / LIVER DISEASE N GOUT N SLEEP DISORDER N ALZHEIMER'S DISEASE N Brain Problems N HERPES N DEMENTIA N HEADACHES/MIGRAINES N SEIZURES/EPILEPSY N VASCULAR DISEASE N PACEMAKER N DIZZINESS N HEART DISEASE/HEART PROBLEMS N KIDNEY DISEASE N MULTIPLE SCLEROSIS N NEUROPSYCHOLOGICAL N CARDIAC ARRHYTHMIA N CANCER: SPECIFY N ATRIAL FIBRILLATION N Gall Stones N PULMONARY EMBOLISM N AUTOIMMUNE DISEASE Y Gynecological History Statement/Question Response Menses Monthly N Date of Last Mammogram 10/14/2021 Current Control Method None Date of Last Colonoscopy 01/18/2012 Most Recent Bone Density 04/07/2021 Obstetrics History GPAL:G 0 P 0 0 0 0 Immunizations Vaccine Type Date Status Note Provider Donavon kennedy and Address Organization Details Recorded Time pneumococcal polysaccharide PPV23 3 completed Abrahan Noriega MD [address] [place] [address], [facility] [address], [place], [address], [place] [employer] 08/07/2023 16:56:53 influenza, unspecified formulation 9 completed Not Available [facility] 06/29/2025 14:57:48 Influenza, split virus, quadrivalent, preservative 0 completed Not Available [facility] 06/29/2025 14:57:48 Influenza, high-dose, quadrivalent, PF 3 completed Not Available [facility] 06/29/2025 14:57:48 COVID-19, mRNA, LNP-S, PF, chadd-sucrose, 30 mcg/0.3 mL 4 completed Not Available [facility] 06/29/2025 14:57:48 influenza nasal, unspecified formulation 5 completed MIKE Nobles, [employer] [facility] [employer] 09/28/2025 12:28:01 Influenza, high-dose, trivalent, PF 4 completed Abrahan Noriega MD [address] [place] [address], [address], [address], [employer] 09/23/2024 17:34:17 COVID-19, mRNA, LNP-S, PF, 30 mcg/0.3 mL dose 1 completed Not Available [facility] 01/24/2023 15:21:15 SARS-COV-2 (COVID-19) vaccine, UNSPECIFIED 1 completed Not Available [facility] 01/24/2023 15:21:15 SARS-COV-2 (COVID-19) vaccine, UNSPECIFIED 1 completed Not Available [facility] 01/24/2023 15:21:15 tetanus toxoid, adsorbed 5 completed Not Available [facility] 01/24/2023 15:21:15 Influenza, high-dose, quadrivalent, PF 2 completed Not Available [facility] 01/24/2023 15:21:15 Pneumococcal conjugate PCV 13 2 completed Not Available [facility] 01/24/2023 15:21:15 Influenza, high-dose, quadrivalent, PF 1 completed Not Available [facility] 01/24/2023 15:21:15 Td (adult), 5 Lf tetanus toxoid, preservative free, adsorbed 5 completed Not Available [facility] 01/24/2023 15:21:15 Past Encounters Encounter ID Performer Location Encounter Start Date Encounter Closed Date Diagnosis/Indication Diagnosis SNOMED-CT Code Diagnosis ICD10 Code Diagnosis IMO Codes Diagnosis Note [id number] Abrahan Noriega MD [facility] [address] [place] [address] 10/04/2021 00:00:00 10/04/2021 13:30:10 [id number] Abrahan Noriega MD [facility] Internal [facility] [address] [facility] [place] [address] 11/08/2021 00:00:00 11/08/2021 16:17:25 [id number] Abrahan Noriega MD [facility] Internal Med [address] [facility] [place] [address] 03/09/2022 00:00:00 03/09/2022 17:31:45 [id number] Abrahan Noriega MD [facility] Internal Med [address] [facility] [place] [address] 07/20/2022 00:00:00 07/20/2022 10:18:37 [id number] Abrahan Noriega MD [facility] [address] [facility] [place] [address] 11/02/2022 00:00:00 11/02/2022 11:28:05 [id number] Abrahan Noriega MD [facility] [address] [facility] [place] [address] 11/30/2022 00:00:00 11/30/2022 13:03:36 [id number] Abrahan Noriega MD [facility] [address] [facility] [place] [address] 03/28/2023 14:45:39 03/28/2023 15:42:35 Essential hypertension 85636265 I10 under control with multiple meds Anxiety 53981690 F41.9 under control Renal insufficiency 7231 66636 N28.9 improved Adult heal th examination 773441927 Z00.00 colonoscop y 2011 nlMammogra m- 10/17Dexa 04/15Pap- / - GYNFLU- 1COV ID- 02/08/2021 , 03/06/2021 Prevnar 02/2022 Pre-surger y evaluation 529923217 Z01.818 labs reviewed from her phone yesterday, cbc and cmp nl, EKG was done 4 months ago, should be cleared Anti-nucle ar factor detected 474795124 R76.8 seeing rheumatolg y [id number] Abrahan Noriega MD [facility] Internal Med [address] [place] [address] 08/07/2023 14:26:09 08/07/2023 15:18:45 Essential hypertension 67805877 I10 under control with multiple meds Anxiety 24823486 F41.9 under control Renal insufficiency 7231 87921 N28.9 improved Adult [facility] th examination 509125227 Z00.00 colonoscop y 2011 nlMammogra m- 10/17Dexa /Pap- 4/19 - GYNFLU- OV ID- 02/08/2021 , 03/06/2021 Prevnar ne umovax 23 today Anti-nucle ar factor detected 593704924 R76.8 seeing rheumatolg y Allergic rhinitis 693964 04 J30.9 meds help Osteoarthritis 071278651 M19.90 was on meloxicam, no meds Gastroesop hageal reflux disease 870675720 K21.9 on meds Administra tion of pneumococcal vaccine 29389920 Z23 [id number] Abrahan Noriega MD [facility] Internal Med [address] [place] [address] 10/10/2023 14:31:09 10/10/2023 15:55:42 Eruption 736884763 R21 [id number] Abrahan Noriega MD [facility] Internal Med [address] [place] [address] 12/03/2023 11:13:31 12/03/2023 12:04:07 Essential hypertension 37889108 I10 UNDER CONTROL Anxiety 50999220 F41.9 under control Renal insufficiency 7231 19720 N28.9 improved Adult [facility] examination 110816615 Z00.00 colonoscop y 2011 nlMammogra m- 10/17Dexa 04/15Pap- 4 - GYNFLU- 09/2021, OV ID- 02/08/2021 , 03/06/2021 Prevnar ne umovax 23 today Allergic rhinitis 926398 04 J30.9 meds help Osteoarthritis 014684929 M19.90 otc Gastroesop hageal reflux disease 682554917 K21.9 on meds Long-term drug therapy 118978729 Z79.899 Screening mammography 24 336929 Z12.31 Postmenopausal state 764 61638 Z78.0 Systemic l upus erythematosus 51314648 M32.9 mild, on meds [id number] Abrahan Noriega MD [facility] Internal [facility] [address] [place] [address] 05/05/2024 09:03:02 05/05/2024 09:40:13 Essential hypertension 09872720 I10 under control Anxiety 78043949 F41.9 under control, NEEDS IT DAILY Renal insufficiency 7231 06196 N28.9 improved, drinking more water Adult [facility] examination 890995860 Z00.00 colonoscop y 2011 nlMammogra m- 12/18/23De xa 01/15/24Pa p- 03/14 - GYNFLU- 09/2021, OV ID- 02/08/2021 , 03/06/2021 Prevnar ne umovax- 08/07/2023 Allergic rhinitis 460161 04 J30.9 meds help Osteoarthritis 400818347 M19.90 otc Gastroesop hageal reflux disease 320785767 K21.9 take it daily for few weeks Systemic l upus erythematosus 42741396 M32.9 mild, on meds, Screening for malignant neoplasm of colon 323304377 Z12.11 [id number] [facility] Internal [facility] [address] [place] [address] 09/23/2024 14:43:22 09/23/2024 15:29:34 Essential hypertension 82617159 I10 under control Anxiety 24871434 F41.9 under control, Renal insufficiency 7231 85872 N28.9 improved, drinking more water Adult [facility] examination 003216598 Z00.00 colonoscop y [facility] Still has the Order but will call and scheduledM ammogram- 12/18/23De xa 01/15/24Pa p- 03/14 - GYNFLU- 09/2021, 08/2023, 09/23/24CO VID- 02/08/2021 , 03/06/2021 Prevnar ne umovax- 08/07/2023 Allergic rhinitis 948089 04 J30.9 meds help Osteoarthritis 058964783 M19.90 otc Gastroesop hageal reflux disease 172890301 K21.9 need meds daily Systemic l upus erythematosus 49865162 M32.9 on meds, Administra tion of influenza vaccine 70277122 Z23 [id number] Abrahan Noriega MD [facility] [address] [place] [address] 02/24/2025 09:08:42 02/24/2025 09:55:52 Essential hypertension 18948306 I10 under control Anxiety 15028093 F41.9 under control, Renal insufficiency 7231 28600 N28.9 improved, drinking more water Adult [facility] examination 057138344 Z00.00 colonoscop y 2011 Janet Still has the Order but will call and scheduledM ammogram- 12/20Dexa 01/15/24Pa p- 4/19 - GYNFLU- 09/2021, 08/2023, 09/23/24CO VID- 02/08/2021 , 03/06/2021 Prevnar 2Pne umovax- 08/07/2023 Allergic rhinitis 579708 04 J30.9 meds help Osteoarthritis 262961414 M19.90 otc Gastroesop hageal reflux disease 860115150 K21.9 need meds daily Systemic l upus erythematosus 23739659 M32.9 on meds, Long-term drug therapy 314604216 Z79.899 Screening for malignant neoplasm of colon 947590426 Z12.11 [id number] Abrahan Noriega MD [facility] Internal Med [address] [place] [address] 05/11/2025 14:21:58 05/11/2025 15:44:50 Pruritic rash 83600301 L28.2 [id number] Abrahan Noriega MD [facility] Internal Med [address] [place] [address] 06/29/2025 14:49:06 06/29/2025 16:26:56 Essential hypertension 05707230 I10 under control Anxiety 03543978 F41.9 under control, Adult heal th examination 993913577 Z00.00 colonoscop y 2011 nl - scheduled for 09/2025Mam mogram- 12/20Dexa 01/15/24Pa p- 03/14 - GYNFLU- 09/2021, 08/2023, 09/23/24Te tanus- DUECOVID- 02/08/2021 , 03/06/2021 Prevnar 13- 2Pne umovax- 08/07/2023 Allergic rhinitis 663652 04 J30.9 meds help Osteoarthritis 015298511 M19.90 otc Gastroesop hageal reflux disease 115726649 K21.9 need meds daily Systemic l upus erythematosus 59538177 M32.9 on meds, Chronic ki dney disease stage 2 521726505 N18.2 3716620 stop HCTZ, try [facility] Concerns Section Related Observation LastModified by Organization Detai ls LastModified Time None Recorded Concern Status LastModified by Organization Details LastModified Time Obesity Active Norah Caraballo RN Not Available 01:54:55 Essential hypertension Active Norah Caraballo RN Not Available 06/24/2024 01:55:05 Gastroesophageal reflux disease Active Norah Caraballo RN Not Available 06/24/2024 01:55:14 Depressive disorder Active Norah Caraballo RN Not Ginger ilable 06/24/2024 01:54:47 Advance Directives Directive Y: Payers Insurance Date Sequence Insurance Name Policy Number Policy Waldrop Covered Member ID Waldrop Member ID Guarantor Name 06/29/2025 2 [employer] (MEDICARE SUPPLEMENT) PLAN G Taniajordy Contrerasous [id number] Tania Barros Kious 08/26/2025 2 [employer] (MEDICARE SUPPLEMENT) PLAN G Tania C Benous [id number] Tania C Kious 06/29/2025 3 [employer] PLAN G Tania C Kious [id number] Tania C Kious 08/26/2025 1 [place] Tania C Kious [id number] Tania C Kious 06/29/2025 2 [employer] (MEDICARE REPLACEMENT/AD VANTAGE - PPO) Tania C Kious [id number] Tania C Kious 06/29/2025 2 [employer] - PLAN J (MEDICARE SUPPLEMENT) Tania C Kious Tania C Kious Notes Date Note Type Note Provider Name and Address Organization Details Recorded Time 05/05/2024 text/html Pt is here today for 4 month f/u. Anxiety- meds help , taking it daily , no depressionMeds- Buspirone 10 mg BID, Bupropion 300mgHTN- under control with meds,Meds- Losartan 100 mg /HCTX 25 mg daily. Amlodipine, carvedilol(metoprolol was stopped due to bradycardia )Obesity- advised to watch GERD-- takes meds every other day, symptoms are moreRhinitis- meds helpMeds- Azelastine 137 mcg daily prn, Montelukast 10 mg daily and FlonaseBack pain- seen ortho, arthritis, better Osteoarthritis- s/p both TKRSLE-Seen pediatric hospitalist for positive [facility], DR Hutson, on hydroxychloroquine, gets eye exam regularly Abrahan Noriega MD [address] [facility], [facility] [address], [place], [address], [place] [facility] [employer] 05/05/2024 09:38:22 09/23/2024 text/html Pt is here today for 4 month f/u. Anxiety- meds help , taking it daily , no depressionMeds- Buspirone 10 mg BID as needed, Bupropion 300mg dailyHTN- under control with meds,Meds- Losartan 100 mg /HCTX 25 mg daily. Amlodipine 10mg 1/2 tab daily, carvedilol 6.25 BID(metoprolol was stopped due to bradycardia )Obesity- advised to watch GERD-- takes meds every other day, symptoms are betterMeds- Omeprazole 40mg daily Rhinitis- meds helpMeds-Montelukast 10 mg daily and Flonase as neededBack pain- seen ortho, arthritis, better Osteoarthritis- s/p both TKRSLE-Seen pediatric hospitalist for positive [facility], DR Hutson,Meds- hydroxychloroquine 200mg daily , gets eye exam regularly Abrahan Noriega MD [address], [place], [address], [employer] 09/23/2024 17:34:23 02/24/2025 text/html Pt is here today for 4 month f/u. Right ear with feeling of some swelling Anxiety- meds help , taking it daily , no depressionMeds- Buspirone 10 mg BID as needed, Bupropion 300mg dailyHTN- under control with meds,Meds- Losartan 100 mg /HCTX 25 mg daily. Amlodipine 10mg 1/2 tab daily, carvedilol 6.25 BID(metoprolol was stopped due to bradycardia )Obesity- advised to watch GERD-- takes meds every other day, symptoms are betterMeds- Omeprazole 40mg daily Rhinitis- meds helpMeds-Montelukast 10 mg daily and Flonase as neededBack pain- seen ortho, arthritis, better Osteoarthritis- s/p both TKRSLE-Seen pediatric hospitalist for positive [facility], DR Hutson,Meds- hydroxychloroquine 200mg daily , gets eye exam regularly GFR was 56 last tyime Abrahan Noriega MD [address], [address], [place], [address], [employer] 02/24/2025 09:43:44 05/11/2025 text/html ROS as noted in the HPI patient is 69y/o female who is here for concerns of rash/irritation on bilateral breasts. Patient reports that she has tried otc creams and powders with no relief. Patient denies recent illness, rash, or infection at this time. OTC- powders and cream RUBIO Martinez [address] [facility], [facility] [address], [place], [address], [employer] 05/11/2025 15:11:47 06/29/2025 text/html Pt is here today for 4 month f/u.PT IS NOT FASTING ( Medicare/[employer] ) Anxiety- meds help , taking it daily , no depressionMeds- Buspirone 10 mg BID as needed, Bupropion 300mg dailyHTN- under control with meds,Meds- Losartan 100 mg /HCTZ 25 mg daily. Amlodipine 5 MG tab daily, carvedilol 6.25 BID(metoprolol was stopped due to bradycardia )Obesity- advised to watch, Has lost 8 lbs GERD-- takes meds every other day, symptoms are betterMeds- Omeprazole 40mg daily Rhinitis- meds helpMeds-Montelukast 10 mg daily and Flonase as neededBack pain- seen ortho, arthritis, better Osteoarthritis- s/p both TKRSLE-Seen pediatric hospitalist for positive [facility], DR Hutson,Meds- hydroxychloroquine 200mg daily , gets eye exam regularly Kidney disease-GFR was 56 NOW 47 TEAM:Cancer Program Consultant- Dr Pereraumatologist- Dr. Cabezas- Dr. Mirza Noriega MD [address] [facility], [facility] [address], [place], [address], [employer] 06/29/2025 15:28:16 OBGyn Episode No OBEpisode recorded.
[2025-10-12 09:55] VITALS: BP 157/64; PULSE 64; RESP 18; TEMP 36.1; O2SAT 99; BMI 38.9
[2025-10-12] MEDS: LACTATED RINGERS 1,000 ML 150 ML IV CONT (10:04)
--- NOTE | 2025-10-12 10:21 | WPDANESEPPF ---
Anes - Initial Pre Proc Eval Procedure: Operation Date: 10/12/25 11:00 Proposed Procedures p Screening Colonoscopy - Art Jolly MD Date/Time: 10/12/25 10:21 Surgeon: Art Jolly MD Pre Op Diagnosis: Screening Patient Data Age: 70 Gender: F Height: 1.68 m Weight: 109.4 kg Last Vital Signs Temp 36.1 C L 10/12/25 09:55 Pulse 64 10/12/25 09:55 Resp 18 10/12/25 09:55 BP 157/64 H 10/12/25 09:55 Pulse Ox 99 10/12/25 09:55 O2 Del Method Room Air 10/12/25 09:55 Allergies Allergy/AdvReac Type Severity Reaction Status Date / Time morphine AdvReac Hallucinati Verified 10/12/25 09:54 ng oxycodone AdvReac Nausea Verified 10/12/25 09:54 Home Medications ?Medication ?Instructions ?Recorded ?Confirmed ?Type fluticasone propionate 50 1 spray intranasal DAILY PRN 09/30/20 09/29/25 History mcg/actuation nasal Congestion spray,suspension montelukast 10 mg tablet 10 mg PO HS 09/30/20 10/12/25 History cetirizine 10 mg disintegrating 10 mg PO DAILY 02/03/21 10/12/25 History tablet glucosamine sulf dipotassium Cl 1 tablet PO DAILY 02/03/21 10/12/25 History 750 mg-chondroitin sulf 600 mg tablet (Glucosamine-Chondroitin 3X Triple Strength) multivitamin 1 tablet PO DAILY 05/23/21 10/12/25 History amlodipine 10 mg tablet 5 mg PO HS 02/15/22 10/12/25 History bupropion HCl 150 mg 24 hr tablet, 300 mg PO QAM 02/15/22 10/12/25 History extended release calcium 600 mg (as 1 tablet PO Q12H 03/27/23 10/12/25 History carbonate)-vitamin D3 5 mcg (200 unit) tablet buspirone 10 mg tablet 10 mg PO Q12H 02/27/24 10/12/25 History hydroxychloroquine 200 mg tablet 200 mg PO DAILY 02/25/25 10/12/25 History omeprazole 40 mg capsule,delayed 40 mg PO DAILY 02/25/25 10/12/25 History release sodium sul 1.479 gram-potas ch See Rx Instructions PO PER PKG DIR 04/03/25 10/12/25 Rx 0.188 gram-magnes sul 0.225 gram #24 tabs tablet (Sutab) carvedilol 6.25 mg tablet See Rx Instructions .Route 08/31/25 10/12/25 Rx .COMPLEX #180 tabs losartan 100 mg tablet 100 mg PO DAILY 09/29/25 10/12/25 History Patient hx anesthesia problems: none Family hx anesthesia problems: none Results Review: All pre-operative results and documents have been reviewed as part of the pre-operative evaluation. 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 Gastroesophageal reflux disease Arthritis Anxiety Hypertension Surgical History Surgical History History of dilation and curettage History of tonsillectomy History of hernia repair History of cholecystectomy History of bilateral knee arthroplasty Right TKA on 12/06/2022. Left TKA on 04/10/2023. Family History Family History Other Family history of cardiovascular disease Hypertension Social History Social History Social History: Surrogate medical decision maker: Chris Downing, spouse. Code status: Full code. Smoking status: Never smoker Second hand tobacco smoke exposure: No Alcohol intake: current Drinks per week: 4 Substance use: never Substance use type: does not use Do You Feel Safe in your Home?: Yes Lack of Transportation: No Lack of Food: Never True Current Housing: I Have Housing Concerned About Future Housing: No Difficulty Paying Gas/Electric Bills: No Difficulty Paying for Meds: No Currently Unemployed: No Education: High School Diploma/GED Difficulty w/ Childcare or Family Care: No Living arrangements: with family Additional living arrangements comments: Lives with spouse in [place]. Spiritual care concerns: No Anes - Eval Final PreProcedure Day of Procedure 10/12/25 10:21 Patient weight: obese Heart: regular rate and rhythm Lungs: clear to auscultation Airway: Mallampati scale class II Neurological: alert and oriented Last oral intake: >/= 8 hours ASA classification: III Emergent: no Anesthetic plan: proceed Anesthesia type and monitoring: general GIVS and standard monitoring Results Review: All pre-operative results and documents have been reviewed as part of the pre-operative evaluation. Informed Consent: The patient's anesthetic plan and its attendant risks and benefits were discussed with the patient/family/POA. Questions were solicited and answers provided to the satisfaction of the patient/family/POA.
--- NOTE | 2025-10-12 10:59 | PM.HPGS ---
History of Present Illness History of Present Illness Consent: Risks, benefits, and alternatives have been discussed and questions answered. Patient agrees to proceed with procedure. 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 Gastroesophageal reflux disease Arthritis Anxiety Hypertension Surgical History Surgical History History of dilation and curettage History of tonsillectomy History of hernia repair History of cholecystectomy History of bilateral knee arthroplasty Right TKA on 12/06/2022. Left TKA on 04/10/2023. Family History Family History Other Family history of cardiovascular disease Hypertension Social History Social History Social History: Surrogate medical decision maker: Chris Downing, spouse. Code status: Full code. Smoking status: Never smoker Second hand tobacco smoke exposure: No Alcohol intake: current Drinks per week: 4 Substance use: never Substance use type: does not use Do You Feel Safe in your Home?: Yes Lack of Transportation: No Lack of Food: Never True Current Housing: I Have Housing Concerned About Future Housing: No Difficulty Paying Gas/Electric Bills: No Difficulty Paying for Meds: No Currently Unemployed: No Education: High School Diploma/GED Difficulty w/ Childcare or Family Care: No Living arrangements: with family Additional living arrangements comments: Lives with spouse in [place]. Spiritual care concerns: No Meds Home Medications and Allergies Home Medications ?Medication ?Instructions ?Recorded ?Confirmed ?Type fluticasone propionate 50 1 spray intranasal DAILY PRN 09/30/20 09/29/25 History mcg/actuation nasal Congestion spray,suspension montelukast 10 mg tablet 10 mg PO HS 09/30/20 10/12/25 History cetirizine 10 mg disintegrating 10 mg PO DAILY 02/03/21 10/12/25 History tablet glucosamine sulf dipotassium Cl 1 tablet PO DAILY 02/03/21 10/12/25 History 750 mg-chondroitin sulf 600 mg tablet (Glucosamine-Chondroitin 3X Triple Strength) multivitamin 1 tablet PO DAILY 05/23/21 10/12/25 History amlodipine 10 mg tablet 5 mg PO HS 02/15/22 10/12/25 History bupropion HCl 150 mg 24 hr tablet, 300 mg PO QAM 02/15/22 10/12/25 History extended release calcium 600 mg (as 1 tablet PO Q12H 03/27/23 10/12/25 History carbonate)-vitamin D3 5 mcg (200 unit) tablet buspirone 10 mg tablet 10 mg PO Q12H 02/27/24 10/12/25 History hydroxychloroquine 200 mg tablet 200 mg PO DAILY 02/25/25 10/12/25 History omeprazole 40 mg capsule,delayed 40 mg PO DAILY 02/25/25 10/12/25 History release sodium sul 1.479 gram-potas ch See Rx Instructions PO PER PKG DIR 04/03/25 10/12/25 Rx 0.188 gram-magnes sul 0.225 gram #24 tabs tablet (Sutab) carvedilol 6.25 mg tablet See Rx Instructions .Route 08/31/25 10/12/25 Rx .COMPLEX #180 tabs losartan 100 mg tablet 100 mg PO DAILY 09/29/25 10/12/25 History Allergies Allergy/AdvReac Type Severity Reaction Status Date / Time morphine AdvReac Hallucinati Verified 10/12/25 09:54 ng oxycodone AdvReac Nausea Verified 10/12/25 09:54 Vital Signs Vital Signs - 24 hr 10/12/25 09:55 Temperature 97 F L Pulse Rate 64 Respiratory Rate 18 Blood Pressure 157/64 H Pulse Oximetry 99 Oxygen Delivery Room Air Exam Const: General: comfortable and no acute distress HENMT: Face/Nose/Sinus: Normal nares present Eyes: General: appearance normal, both eyes and all related structures Resp: Auscultation: clear to auscultation bilaterally Cardio: Rate: regular rate Rhythm: regular rhythm GI: Inspection: non-distended GI Palp: Yes Soft to palpation Skin: General skin exam: normal color Extrem: General: normal to inspection Psych: Mental Status: mental status grossly normal Assessment and Plan Assessment and plan (1) Colon cancer screening: Code(s): Z12.11 - Encounter for screening for malignant neoplasm of colon Status: Acute Assessment and Plan: colonoscopy
--- NOTE | 2025-10-12 11:15 | S_PTH ---
PATIENT: Tania Downing LOC: [facility]#:[id number] AGE/SX: 70/F ROOM: RE10/12/[address]: Art Jolly MD : [id number] BED: DIS: 10/12/2025 SPEC #: [id number] RECD: 10/12/25 11:19 STATUS: ARIK REAsha #: [id number] EMILIO: 10/12/25 11:[address]: Art Jolly DEPT: [facility] Surgical RECD BY: Nancy Alvarez ENTERED: 10/12/25 11:19 SP TYPE: Surgical OTHR DR: Abrahan Noriega, Tissues: A - Colon Polypectomy Procedures: Hematoxylin and Eosin Stain Gross and Microscopic Level 4
[2025-10-12 11:18] VITALS: BP 133/63; PULSE 53; RESP 18; O2SAT 100
[2025-10-12 11:28] VITALS: BP 145/59; PULSE 52; RESP 18; O2SAT 99
[2025-10-12 11:38] VITALS: BP 162/61; PULSE 50; RESP 18; O2SAT 100
== END 2025-10-12 11:50 | disposition home or self-care (01) ==
PROVIDERS: PCP Internal Medicine; Referring Provider Internal Medicine; Visit Provider Internal Medicine Gastroenterology
PROC: 0DJD8ZZ Inspection of Lower Intestinal Tract, Via Natural or Artificial Opening Endoscopic (ICD-10-PCS; CPT 45378; principal; 2025-10-12 11:00)
DX: Z12.11 Encounter for screening for malignant neoplasm of colon (principal); K63.5 Polyp of colon; K57.30 Diverticulosis of large intestine without perforation or abscess without bleeding; K64.8 Other hemorrhoids; E66.9 Obesity, unspecified; Z68.38 Body mass index [BMI] 38.0-38.9, adult
CPT/HCPCS: 45380; 88305; J2704; J7120